=== PATIENT | female | born 1950 | race Caucasian/White ===

== ENCOUNTER 2017-01-29 16:11 | Inpatient (IN) | payer MEDICARE ==
[2017-01-29] MEDS ORDERED: Acetaminophen 325 MG TAB PO PRN (21:24)
[2017-01-29] MEDS ORDERED: Bisacodyl 10 MG SUPP PR PRN (21:25)
[2017-01-29] MEDS ORDERED: HYDROcodone/Acetaminophen 10/325 mg Tablet PO PRN (21:32)
[2017-01-29] MEDS ORDERED: Fleet Enema 133 ML BOT FS PRN (21:35)
[2017-01-29] MEDS ORDERED: tiZANidine HCl 4 MG TAB PO PRN (21:36)
[2017-01-29] MEDS ORDERED: traMADol HCl 50 MG TAB PO PRN (21:38)
[2017-01-29] MEDS ORDERED: Zolpidem Tartrate 5 MG TAB PO PRN (21:39)
[2017-01-29] MEDS: HYDROcodone/Acetaminophen 10/325 mg Tablet PO PRN (23:02)
[2017-01-30] MEDS: Ondansetron ODT 4 MG TAB PO PRN ×2 (02:11→10:52)
[2017-01-30] MEDS: HYDROcodone/Acetaminophen 10/325 mg Tablet PO PRN ×3 (07:57→21:32)
[2017-01-30] MEDS: Mometasone/Formoterol 60 PUFF AER INH SCH (07:58)
[2017-01-30 08:45] VITALS: BMI 26.2
[2017-01-30] MEDS: Ferrous Gluconate 324 MG TAB PO SCH ×2 (08:58→17:15)
[2017-01-30] MEDS: Aspirin 325 mg Enteric Coated Tablet PO SCH ×2 (08:58→21:36)
[2017-01-30] MEDS: Multivitamin W/ Minerals 1 TAB PO SCH (08:58)
[2017-01-30] MEDS: Gabapentin 100 MG CAP PO SCH ×3 (08:59→21:35)
[2017-01-30] MEDS: Lisinopril 5 MG TAB PO SCH (08:59)
[2017-01-30] MEDS: Furosemide 20 MG TAB PO SCH (08:59)
[2017-01-30] MEDS ORDERED: Gabapentin 100 MG CAP PO SCH (09:00)
[2017-01-30] MEDS: Cyclobenzaprine 10 MG TAB PO SCH (09:00)
[2017-01-30] MEDS ORDERED: DULOXETINE 20 MG CAPSULE PO SCH (09:00)
[2017-01-30] MEDS ORDERED: FLU VACC TS2016-17(65YR +) 0.5 ML SYRINGE IM ONE (09:00)
[2017-01-30] MEDS: Nicotine 7 MG PATCH TOP SCH (09:02)
[2017-01-30] MEDS: clonazePAM 0.5 MG TAB PO SCH (21:36)
[2017-01-31] MEDS: HYDROcodone/Acetaminophen 10/325 mg Tablet PO PRN ×5 (02:13→20:39)
[2017-01-31] MEDS: Mometasone/Formoterol 60 PUFF AER INH SCH ×3 (06:26→19:28)
[2017-01-31 06:41] LABS: ALT (SGPT) 45 U/L (0-55); AST (SGOT) 38 U/L (5-34); Alkaline Phosphatase 168 U/L (40-150); Anion Gap 13 mmol/L (10-20); BUN (Urea Nitrogen) 13 mg/dL (9.8-20.1); Bilirubin, Total 0.3 mg/dL (0.2-1.2); Calc. Creatinine Clearance 64 mL/min (70-130); Calcium 8.8 mg/dL (7.8-10.44); Carbon Dioxide 21 mmol/L (23-31); Chloride 112 mmol/L (98-107); Estimated GFR-MDRD 68; Globulin 2.9 g/dL (2.4-3.5)
[2017-01-31 06:46] LABS: #Basophils 0.1 thou/uL (0.0-0.2); #Eosinphils 0.2 thou/uL (0.0-0.7); #Lymphocytes 1.3 thou/uL (1.20-3.40); #Monocytes 0.7 thou/uL (0.11-0.59); %Eosinophils 2.5 % (0.0-10.0); %Monocytes 10.9 % (0.0-10.0); Hematocrit 31.3 % (36.0-47.0); Mean Platelet Volume 7.2 fL (7.4-10.4); White Blood Cell (WBC) Count 6.2 thou/uL (4.8-10.8)
[2017-01-31] MEDS ORDERED: Cyclobenzaprine 10 MG TAB ONE (09:08)
[2017-01-31] MEDS: Ferrous Gluconate 324 MG TAB PO SCH ×2 (09:35→16:34)
[2017-01-31] MEDS: Multivitamin W/ Minerals 1 TAB PO SCH (09:36)
[2017-01-31] MEDS: Aspirin 325 mg Enteric Coated Tablet PO SCH ×2 (09:37→20:39)
[2017-01-31] MEDS: Cyclobenzaprine 10 MG TAB PO SCH (09:38)
[2017-01-31] MEDS: clonazePAM 0.5 MG TAB PO SCH ×2 (09:38→20:38)
[2017-01-31] MEDS: Furosemide 20 MG TAB PO SCH (09:39)
[2017-01-31] MEDS: Gabapentin 100 MG CAP PO SCH ×3 (09:40→20:38)
[2017-01-31] MEDS: Lisinopril 5 MG TAB PO SCH (09:40)
[2017-01-31] MEDS: Nicotine 7 MG PATCH TOP SCH (09:47)
[2017-01-31] MEDS: Ondansetron ODT 4 MG TAB PO PRN (10:48)
[2017-02-01] MEDS: HYDROcodone/Acetaminophen 10/325 mg Tablet PO PRN ×5 (00:38→21:36)
[2017-02-01] MEDS: Mometasone/Formoterol 60 PUFF AER INH SCH ×2 (06:19→18:24)
[2017-02-01] MEDS: Ferrous Gluconate 324 MG TAB PO SCH ×2 (09:43→16:09)
[2017-02-01] MEDS: Multivitamin W/ Minerals 1 TAB PO SCH (09:45)
[2017-02-01] MEDS: clonazePAM 0.5 MG TAB PO SCH ×2 (09:46→20:28)
[2017-02-01] MEDS: Gabapentin 100 MG CAP PO SCH ×3 (09:46→20:28)
[2017-02-01] MEDS: Aspirin 325 mg Enteric Coated Tablet PO SCH ×2 (09:47→20:28)
[2017-02-01] MEDS: Furosemide 20 MG TAB PO SCH (09:47)
[2017-02-01] MEDS: Cyclobenzaprine 10 MG TAB PO SCH (09:47)
[2017-02-01] MEDS: Lisinopril 5 MG TAB PO SCH (09:49)
[2017-02-01] MEDS: Nicotine 7 MG PATCH TOP SCH (09:50)
[2017-02-01] MEDS: Ondansetron ODT 4 MG TAB PO PRN (09:54)
[2017-02-02] MEDS: HYDROcodone/Acetaminophen 10/325 mg Tablet PO PRN ×4 (01:36→22:36)
[2017-02-02] MEDS: Mometasone/Formoterol 60 PUFF AER INH SCH ×2 (06:18→18:36)
[2017-02-02] MEDS: Ferrous Gluconate 324 MG TAB PO SCH ×2 (08:15→17:48)
[2017-02-02] MEDS: Multivitamin W/ Minerals 1 TAB PO SCH (08:15)
[2017-02-02] MEDS: Cyclobenzaprine 10 MG TAB PO SCH (08:17)
[2017-02-02] MEDS: Gabapentin 100 MG CAP PO SCH ×3 (08:17→20:53)
[2017-02-02] MEDS: Furosemide 20 MG TAB PO SCH (08:18)
[2017-02-02] MEDS: clonazePAM 0.5 MG TAB PO SCH ×2 (08:18→20:54)
[2017-02-02] MEDS: Aspirin 325 mg Enteric Coated Tablet PO SCH ×2 (08:18→20:54)
[2017-02-02] MEDS: Lisinopril 5 MG TAB PO SCH (08:19)
[2017-02-02] MEDS: Nicotine 7 MG PATCH TOP SCH (09:13)
[2017-02-03] MEDS: HYDROcodone/Acetaminophen 10/325 mg Tablet PO PRN ×4 (06:10→20:48)
[2017-02-03] MEDS: Mometasone/Formoterol 60 PUFF AER INH SCH ×2 (06:19→20:50)
[2017-02-03] MEDS: Gabapentin 100 MG CAP PO SCH ×3 (08:20→20:48)
[2017-02-03] MEDS: Lisinopril 5 MG TAB PO SCH (08:20)
[2017-02-03] MEDS: Cyclobenzaprine 10 MG TAB PO SCH (08:23)
[2017-02-03] MEDS: Aspirin 325 mg Enteric Coated Tablet PO SCH ×2 (08:23→20:47)
[2017-02-03] MEDS: clonazePAM 0.5 MG TAB PO SCH ×2 (08:23→20:47)
[2017-02-03] MEDS: Ferrous Gluconate 324 MG TAB PO SCH ×2 (08:23→16:41)
[2017-02-03] MEDS: Multivitamin W/ Minerals 1 TAB PO SCH (08:24)
[2017-02-03] MEDS: Furosemide 20 MG TAB PO SCH (08:24)
[2017-02-03] MEDS: Nicotine 7 MG PATCH TOP SCH (08:30)
[2017-02-03] MEDS: Milk Of Magnesia 30 ML UDCUP PO PRN (08:30)
[2017-02-04] MEDS: HYDROcodone/Acetaminophen 10/325 mg Tablet PO PRN ×4 (01:14→21:05)
[2017-02-04] MEDS: Mometasone/Formoterol 60 PUFF AER INH SCH ×2 (05:18→23:49)
[2017-02-04] MEDS: clonazePAM 0.5 MG TAB PO SCH ×2 (09:48→21:05)
[2017-02-04] MEDS: Gabapentin 100 MG CAP PO SCH ×3 (09:49→21:04)
[2017-02-04] MEDS: Multivitamin W/ Minerals 1 TAB PO SCH (09:50)
[2017-02-04] MEDS: Furosemide 20 MG TAB PO SCH (09:50)
[2017-02-04] MEDS: Cyclobenzaprine 10 MG TAB PO SCH (09:50)
[2017-02-04] MEDS: Aspirin 325 mg Enteric Coated Tablet PO SCH ×2 (09:50→21:05)
[2017-02-04] MEDS: Ferrous Gluconate 324 MG TAB PO SCH ×2 (09:50→17:11)
[2017-02-04] MEDS: Lisinopril 5 MG TAB PO SCH (09:51)
[2017-02-04] MEDS: Nicotine 7 MG PATCH TOP SCH (10:12)
[2017-02-04] MEDS: Ondansetron ODT 4 MG TAB PO PRN (10:17)
[2017-02-04] MEDS: Milk Of Magnesia 30 ML UDCUP PO PRN (14:11)
[2017-02-05] MEDS: HYDROcodone/Acetaminophen 10/325 mg Tablet PO PRN ×3 (01:37→15:35)
[2017-02-05] MEDS: Mometasone/Formoterol 60 PUFF AER INH SCH ×2 (06:28→18:46)
[2017-02-05] MEDS: Gabapentin 100 MG CAP PO SCH ×3 (08:27→21:28)
[2017-02-05] MEDS: Multivitamin W/ Minerals 1 TAB PO SCH (08:27)
[2017-02-05] MEDS: Aspirin 325 mg Enteric Coated Tablet PO SCH ×2 (08:27→21:28)
[2017-02-05] MEDS: Lisinopril 5 MG TAB PO SCH (08:28)
[2017-02-05] MEDS: Ferrous Gluconate 324 MG TAB PO SCH ×2 (08:28→17:39)
[2017-02-05] MEDS: Nicotine 7 MG PATCH TOP SCH (08:38)
[2017-02-05] MEDS: clonazePAM 0.5 MG TAB PO SCH ×2 (12:48→21:28)
[2017-02-05] MEDS: Furosemide 20 MG TAB PO SCH (12:50)
[2017-02-05] MEDS: Cyclobenzaprine 10 MG TAB PO SCH (12:54)
[2017-02-05] MEDS: Ondansetron ODT 4 MG TAB PO PRN (17:10)
[2017-02-06] MEDS: Mometasone/Formoterol 60 PUFF AER INH SCH (06:08)
[2017-02-06] MEDS: HYDROcodone/Acetaminophen 10/325 mg Tablet PO PRN (06:15)
[2017-02-06 06:24] VITALS: BP 124/65; TEMP 98.3
[2017-02-06] MEDS: Ferrous Gluconate 324 MG TAB PO SCH (09:05)
[2017-02-06] MEDS: Gabapentin 100 MG CAP PO SCH (09:06)
[2017-02-06] MEDS: Aspirin 325 mg Enteric Coated Tablet PO SCH (09:07)
[2017-02-06] MEDS: Multivitamin W/ Minerals 1 TAB PO SCH (09:07)
[2017-02-06] MEDS: Furosemide 20 MG TAB PO SCH (09:08)
[2017-02-06] MEDS: clonazePAM 0.5 MG TAB PO SCH (09:08)
[2017-02-06] MEDS: Cyclobenzaprine 10 MG TAB PO SCH (09:08)
[2017-02-06] MEDS: Lisinopril 5 MG TAB PO SCH (09:10)
[2017-02-06] MEDS: Nicotine 7 MG PATCH TOP SCH (09:17)
--- NOTE | 2017-02-06 19:10 | DIS ---
DATE OF ADMISSION: 01/29/2017 DATE OF DISCHARGE: 02/06/2017. ADMISSION DIAGNOSES: Left femoral neck fracture status post total arthroplasty , history of falls, hypokalemia and elevated transaminases. SECONDARY DIAGNOSES: Hypertension, hyperlipidemia, and chronic obstructive pulmonary disease. PROCEDURES: None. HOSPITAL COURSE: This is a 67-year-old female who was transitioned from [facility] to our facility for PT, OT, and status post sustained fall at home with resultant left femoral neck fracture; patient underwent a total arthroplasty via Dr. Lauren successfully. Prior to her transition here she notably had hypokalemia and elevated liver function tests. Upon reevaluation here, hypokalemia was corrected. Liver function tests normalized. During her stay, she was able to participate with PT and OT with no notable setbacks. She did request to have a walker and tub transfer bench for use at home. The patient normally resides at home alone, but does have her son who checks on her often. She has had a prior back surgery and received home health therapy through [facility]; she has elected to proceed with same entity at this time. She was evaluated for followup with Dr. Lauren yesterday and she has been cleared. Patient had no new issues during her stay here and continually progressed and is now stable to return to her home. DISPOSITION: The patient will return home and participiate with continuous PT and OT via [facility]. She may follow up with myself next week in clinic. DISCHARGE MEDICATIONS: Amlodipine 10 mg p.o. daily, Symbicort 2 puffs b.i.d., Flexeril 10 mg p.o. daily, Nexium 40 mg p.o. daily, Lasix 20 mg p.o. daily, gabapentin 200 mg p.o. t.i.d., Cymbalta 40 mg p.o. daily, ferrous gluconate 324 mg p.o. b.i.d., DuoNeb q.6 hours p.r.n., lisinopril 5 mg p.o. daily and advised to continue nicotine patch, Crestor 10 mg p.o. daily, tizanidine 4 mg p.o. at bedtime p.r.n., tramadol 100 mg p.o. q.6 hours p.r.n. MTDD
== END 2017-02-06 10:25 | disposition home health service (06) | DRG 561 ==
LOC: BURMED 18:05
PROVIDERS: ADMIT Family Medicine; ATTEND Family Medicine
DX: S72.002D Fracture of unspecified part of neck of left femur, subsequent encounter for closed fracture with routine healing (principal); J44.9 Chronic obstructive pulmonary disease, unspecified; I10 Essential (primary) hypertension; W19.XXXD Unspecified fall, subsequent encounter; Z47.1 Aftercare following joint replacement surgery; Z96.642 Presence of left artificial hip joint; E78.5 Hyperlipidemia, unspecified; E87.6 Hypokalemia; R74.0 Nonspecific elevation of levels of transaminase and lactic acid dehydrogenase [LDH]
CPT/HCPCS: 36415; 80053; 85025; 94640; 94664; G8978-GP-CJ; G8979-GP-CI; G8987-GO-CK; G8988-GO-CI; J7620; Q0162

== ENCOUNTER 2017-05-19 08:35 | Outpatient (CLI) | payer MEDICARE ==
[2017-05-19 10:50] LABS: #Basophils 0.1 thou/uL (0.0-0.2); #Eosinphils 0.2 thou/uL (0.0-0.7); #Lymphocytes 2.4 thou/uL (1.20-3.40); #Monocytes 0.7 thou/uL (0.11-0.59); #Neutrophils 5.8 thou/uL (1.40-6.50); %Basophils 0.8 % (0.0-1.0); %Eosinophils 1.7 % (0.0-10.0); %Lymphocytes 26.1 % (21.0-51.0); %Monocytes 8.1 % (0.0-10.0); %Neutrophils 63.4 % (42.0-75.0); Hemoglobin 12.7 g/dL (12.0-16.0); Mean Corpuscular HGB CONC 32.3 g/dL (32.0-36.0); Mean Corpuscular Hemoglobin 27.7 pg (27.0-31.0); Mean Corpuscular Volume 85.9 fl (81.0-99.0); Mean Platelet Volume 9.1 fL (7.4-10.4); Platelet Count 236 thou/uL (130-400); White Blood Cell (WBC) Count 9.1 thou/uL (4.8-10.8)
[2017-05-19 11:02] LABS: ALT (SGPT) 69 U/L (8-55); AST (SGOT) 22 U/L (5-34); Albumin 4.2 g/dL (3.4-4.8); Alkaline Phosphatase 197 U/L (40-150); Anion Gap 15 mmol/L (10-20); BUN (Urea Nitrogen) 13 mg/dL (9.8-20.1); Bilirubin, Total 0.2 mg/dL (0.2-1.2); Calc. Creatinine Clearance 0 mL/min (70-130); Calcium 9.5 mg/dL (7.8-10.44); Cardiac Risk 3.8 (Less than 4.5); Chloride 115 mmol/L (98-107); Cholesterol 154 mg/dl (< 200 Desired); Estimated GFR-MDRD 71; Globulin 2.7 g/dL (2.4-3.5); Glucose 116 mg/dL (80-115); HDL Cholesterol 41 mg/dL (>60 Neg Risk); LDL Cholesterol, Calculated 83 mg/dL; Lipase 59 U/L (8-78); Potassium 4.1 mmol/L (3.5-5.1); Protein, Total 6.9 g/dL (6.0-8.3); Sodium 143 mmol/L (136-145); Triglycerides 148 mg/dL (Less than 150)
[2017-05-19 11:24] LABS: Carbon Dioxide 17 mmol/L (23-31)
== END 2017-05-19 08:36 | disposition home or self-care (01) ==
LOC: HPCALD 08:35
PROVIDERS: ATTEND Family Medicine
DX: E78.4 Other hyperlipidemia (principal); K52.9 Noninfective gastroenteritis and colitis, unspecified; I10 Essential (primary) hypertension
CPT/HCPCS: 36415; 80053; 80061; 83690; 85025

== ENCOUNTER 2017-05-20 15:22 | Outpatient (CLI) | payer MEDICARE | END 2017-05-20 15:23 | disposition home or self-care (01) | LOC: HPCALD 15:22 | PROVIDERS: ATTEND Family Medicine | DX: R30.0 Dysuria (principal) | CPT/HCPCS: 87086 ==

== ENCOUNTER 2017-07-04 14:48 | Outpatient (CLI) | payer MEDICARE | END 2017-07-04 14:49 | disposition home or self-care (01) | LOC: HPCALD 14:48 | PROVIDERS: ATTEND Family Medicine | DX: M79.605 Pain in left leg (principal) | CPT/HCPCS: 36415; 85379 ==

== ENCOUNTER 2017-08-06 22:01 | Emergency (ER) | payer MEDICARE ==
[2017-08-06 22:44] LABS: #Eosinphils 0.1 thou/uL (0.0-0.7); #Lymphocytes 1.9 thou/uL (1.20-3.40); #Monocytes 0.6 thou/uL (0.11-0.59); #Neutrophils 3.7 thou/uL (1.40-6.50); %Basophils 0.7 % (0.0-1.0); %Eosinophils 1.4 % (0.0-10.0); %Lymphocytes 29.6 % (21.0-51.0); %Monocytes 9.3 % (0.0-10.0); Hemoglobin 11.8 g/dL (12.0-16.0); Mean Corpuscular HGB CONC 32.9 g/dL (32.0-36.0); Mean Corpuscular Hemoglobin 30.1 pg (27.0-31.0); Mean Corpuscular Volume 91.4 fl (81.0-99.0); Mean Platelet Volume 8.8 fL (7.4-10.4); Platelet Count 144 thou/uL (130-400); Red Blood Cell (RBC) Count 3.93 mill/uL (4.20-5.40); White Blood Cell (WBC) Count 6.3 thou/uL (4.8-10.8)
[2017-08-06 22:55] LABS: Anion Gap 14 mmol/L (10-20); BUN (Urea Nitrogen) 9 mg/dL (9.8-20.1); Calc. Creatinine Clearance 0 mL/min (70-130); Calcium 8.7 mg/dL (7.8-10.44); Carbon Dioxide 22 mmol/L (23-31); Chloride 105 mmol/L (98-107); Estimated GFR-MDRD 67; Glucose 108 mg/dL (80-115); Sodium 137 mmol/L (136-145)
--- NOTE | 2017-08-06 23:08 | RAD ---
LEFT HIP TWO VIEWS 08/06/17 A hip arthroplasty is in place. There is no sign of loosening or infection. No fracture was seen. Al ignment of the prosthesis seems normal. IMPRESSION: No acute findings. POS: HOME
[2017-08-06] MEDS ORDERED: HYDROcodone/Acetaminophen 10/325 mg Tablet ONE (23:13)
[2017-08-06] MEDS ORDERED: Enoxaparin Sodium 100 MG/ML SYRINGE ONE (23:13)
== END 2017-08-06 23:53 | disposition short-term general hospital (02) ==
LOC: BURERS 22:01
DX: M79.605 Pain in left leg (principal); R79.1 Abnormal coagulation profile; R60.0 Localized edema; I10 Essential (primary) hypertension; J44.9 Chronic obstructive pulmonary disease, unspecified; E78.5 Hyperlipidemia, unspecified; E03.9 Hypothyroidism, unspecified; K21.9 Gastro-esophageal reflux disease without esophagitis; F41.9 Anxiety disorder, unspecified; F32.9 Major depressive disorder, single episode, unspecified; F17.210 Nicotine dependence, cigarettes, uncomplicated; Z79.891 Long term (current) use of opiate analgesic; Z79.899 Other long term (current) drug therapy
CPT/HCPCS: 36415; 80048; 85025; 85379; 96372; J1650

== ENCOUNTER 2018-01-16 14:22 | Outpatient (CLI) | payer MEDICARE ==
--- NOTE | 2018-01-16 17:13 | RAD ---
LEFT LEG TWO VIEWS 01/16/18 No fracture was seen. There is no acute periosteal reaction. An old ORIF of the distal fibula and med ial malleolus is noted. IMPRESSION: No acute findings. POS: HOME
== END 2018-01-16 14:23 | disposition home or self-care (01) ==
LOC: BURRAD 14:22
PROVIDERS: ATTEND Family Medicine
DX: M79.605 Pain in left leg (principal)

== ENCOUNTER 2018-05-25 13:42 | Emergency (ER) | payer MEDICARE ==
[2018-05-25 14:32] LABS: #Basophils 0.1 thou/uL (0.0-0.2); #Eosinphils 0.1 thou/uL (0.0-0.7); #Lymphocytes 1.8 thou/uL (1.20-3.40); #Monocytes 0.7 thou/uL (0.11-0.59); #Neutrophils 4.5 thou/uL (1.40-6.50); %Basophils 0.7 % (0.0-1.0); %Eosinophils 1.5 % (0.0-10.0); %Lymphocytes 25.5 % (21.0-51.0); %Monocytes 10.1 % (0.0-10.0); %Neutrophils 62.2 % (42.0-75.0); Hemoglobin 11.2 g/dL (12.0-16.0); Mean Corpuscular HGB CONC 32.9 g/dL (32.0-36.0); Mean Corpuscular Hemoglobin 28.2 pg (27.0-31.0); Mean Corpuscular Volume 85.7 fL (78.0-98.0); Mean Platelet Volume 7.1 fL (7.4-10.4); Platelet Count 222 thou/uL (130-400); RBC Distribution Width 13.6 % (11.5-14.5); Red Blood Cell (RBC) Count 3.95 mill/uL (4.20-5.40); White Blood Cell (WBC) Count 7.2 thou/uL (4.8-10.8)
[2018-05-25 14:44] LABS: Bilirubin Negative (Negative); Blood, Urine Moderate (Negative); Clarity Clear (Clear); Glucose, Urine (Dipstick) Negative (Negative); Leukocyte Negative (Negative); Nitrite Negative (Negative); Protein, Urine (Dipstick) Negative (Neg-Trace); Urobilinogen 0.2 mg/dL (0.2-1.0)
[2018-05-25 14:47] LABS: ALT (SGPT) 44 U/L (8-55); AST (SGOT) 44 U/L (5-34); Albumin 3.5 g/dL (3.4-4.8); Alkaline Phosphatase 215 U/L (40-150); Anion Gap 14 mmol/L (10-20); BUN (Urea Nitrogen) 25 mg/dL (9.8-20.1); Bilirubin, Total 0.2 mg/dL (0.2-1.2); CK (CPK) 146 U/L (29-168); Calc. Creatinine Clearance 0 mL/min (70-130); Carbon Dioxide 23 mmol/L (23-31); Chloride 107 mmol/L (98-107); Estimated GFR-MDRD 64; Globulin 2.6 g/dL (2.4-3.5); Glucose 96 mg/dL (80-115); Potassium 4.2 mmol/L (3.5-5.1); Protein, Total 6.1 g/dL (6.0-8.3); Sodium 140 mmol/L (136-145)
[2018-05-25 14:48] LABS: Bacteria/HPF Rare-Few HPF (None Seen); Squamous Epithelial 0-3 HPF (0-3); WBC/HPF 0-3 HPF (0-3)
[2018-05-25 14:50] LABS: CKMB 5.1 ng/mL (0-6.6); Troponin I Less than 0.010 ng/mL (< 0.028)
[2018-05-25] MEDS ORDERED: Ketorolac Tromethamine 30 MG/ML VIAL ONE (14:56)
== END 2018-05-25 15:56 | disposition home or self-care (01) ==
LOC: BURERS 13:42
DX: R60.0 Localized edema (principal); G43.909 Migraine, unspecified, not intractable, without status migrainosus; J44.9 Chronic obstructive pulmonary disease, unspecified; E78.5 Hyperlipidemia, unspecified; I10 Essential (primary) hypertension; E03.9 Hypothyroidism, unspecified; K21.9 Gastro-esophageal reflux disease without esophagitis; F41.9 Anxiety disorder, unspecified; F32.9 Major depressive disorder, single episode, unspecified; F17.210 Nicotine dependence, cigarettes, uncomplicated; Z79.899 Other long term (current) drug therapy
CPT/HCPCS: 80053; 81003; 81015; 82553; 84484; 85025; 93005; 96374; J1885

== ENCOUNTER 2018-08-23 13:01 | Inpatient (IN) | payer MEDICARE ==
[2018-08-23 16:33] VITALS: BMI 24.0
[2018-08-23] MEDS ORDERED: Benzonatate 100 MG CAP PO PRN (16:43)
[2018-08-23] MEDS: Acetaminophen/Codeine 30-300mg Tablet PO PRN (17:34)
[2018-08-23] MEDS: Mometasone/Formoterol 60 PUFF AER INH SCH (18:30)
--- NOTE | 2018-08-23 21:40 | HP ---
REASON FOR SWING BED ADMISSION: Diffuse weakness, debilitation. BRIEF SUMMARY OF HISTORY AND PHYSICAL: The patient is a 68-year-old white female, who had a ST-eleva tion NE and was admitted to [facility]. She underwent a cardiac catheterizati on with stent placement in the right RCA with a bare metal stent and was placed on Plavix. The patie nt during her hospital stay did have some elevated fevers, which was found to be consistent with UTI with E. coli in her urine. She did have 1 out of 2 blood cultures with coag negative Staph, which wa s thought to be a contaminant. The patient was extremely weak and debilitated. She has chronic pain as well as degenerative joint disease of the cervical and lumbar spine and chronic abdominal pain wi th nausea and elevated liver enzymes, which was evaluated in the hospital by Dr. Davon Gilbert and ob servation was recommended. The patient also has a history of chronic narcotic use and benzodiazepine use. Due to her debilitation and weakness, it was deemed appropriate to transfer her to [facility] for continued rehabilitation with physical therapy and occupational therapy. PAST MEDICAL HISTORY: 1. COPD. 2. Chronic back pain. 3. Chronic renal disease. 4. Hypothyroidism. 5. Hyperlipidemia. 6. Coronary artery disease, status post NE as above. 7. History of peptic ulcer disease. PAST SURGICAL HISTORY: Including appendectomy, cholecystectomy, hysterectomy, hip surgery, and multi ple back surgeries. SOCIAL HISTORY: The patient is fairly independent in activities of daily living, slightly decreased activity due to her chronic back pain. She was smokes a pack and half of cigarettes per day for mult iple years. Denies alcohol, social drug use. Does have a history of narcotic dependency due to her chronic back pain. ALLERGIES: Include MORPHINE, HYDROMORPHONE, and CLONIDINE. CURRENT MEDICATIONS: Tylenol with Codeine No. 4, Nexium 40 mg daily, Celebrex, iron supplements, mul tivitamins, sertraline, amlodipine, cyclobenzaprine, clonazepam, lisinopril, gabapentin, furosemide, Crestor, and potassium supplement. REVIEW OF SYSTEMS: Patient reports generalized weakness. She has chronic nausea and abdominal pain which is at its baseline. She does report increased appetite. No recent nausea, no vomiting above h er baseline. The patient has chronic depression, which appears to be stable with mild anxiety. She has chronic back pain as well which appears to be stable. Patient denies any chest pain. She does h ave diffuse weakness though with any activity, requiring assistance with transfers. The patient has no melena, no hematochezia. She does not report any dysuria or hematuria at this time. No urinary f requency and no lower extremity edema. PHYSICAL EXAMINATION: GENERAL: Elderly white female, alert and oriented x3. VITAL SIGNS: Blood pressure was 114/88, respiratory rate was 16, pulse 82. HEENT: Atraumatic, normocephalic. Extraocular movements are intact. NECK: Supple, no masses palpated. CHEST: Had diffuse rhonchi bilaterally. HEART: Regular rate and rhythm. ABDOMEN: Soft. Bowel sounds positive in all 4 quadrants. No masses palpated. EXTREMITIES: No cyanosis, clubbing or edema. ASSESSMENT AND PLAN: 1. Status post ST-elevation myocardial infarction. Patient was status post PCI catheterization with stent placement in the right RCA. She will be on Plavix. She is high risk for bleeding. She will undergo rehabilitation. 2. Generalized weakness. We will start physical therapy, occupational, and physical therapy as well as patient tolerated. 3. History of peptic ulcer disease with chronic nausea and elevated liver enzymes. The patient was switched from Nexium to Protonix due to now being on her Plavix. 4. Chronic back pain. CURRENT MEDICATIONS: As tolerated. DEPRESSION: Stable. DISPOSITION: The patient will likely be discharged to home once she is able to ambulate on her own. The patient is a DNR. SCDs will be ordered on the patient for deep venous thrombosis prophylaxis,
[2018-08-23] MEDS: hydrOXYzine 10 MG TAB PO SCH (22:18)
[2018-08-23] MEDS: Cyclobenzaprine 10 MG TAB PO SCH (22:18)
[2018-08-23] MEDS: Gabapentin 100 MG CAP PO SCH (22:19)
[2018-08-23] MEDS: clonazePAM 1 MG TAB PO SCH (22:19)
[2018-08-23] MEDS: Ferrous Gluconate 324 MG TAB PO SCH (22:19)
[2018-08-24] MEDS: Acetaminophen 325 MG TAB PO PRN (05:54)
[2018-08-24] MEDS: Mometasone/Formoterol 60 PUFF AER INH SCH ×2 (06:45→18:35)
[2018-08-24] MEDS: Amlodipine 10 MG TAB PO SCH (09:31)
[2018-08-24] MEDS: Clopidogrel Bisulfate 75 MG TAB PO SCH (09:31)
[2018-08-24] MEDS: Cyclobenzaprine 10 MG TAB PO SCH ×3 (09:31→20:36)
[2018-08-24] MEDS: clonazePAM 1 MG TAB PO SCH ×3 (09:31→20:36)
[2018-08-24] MEDS: predniSONE 20 MG TAB PO SCH (09:31)
[2018-08-24] MEDS: Furosemide 20 MG TAB PO SCH (09:32)
[2018-08-24] MEDS: Gabapentin 100 MG CAP PO SCH ×3 (09:32→20:36)
[2018-08-24] MEDS: Nicotine 21 MG PATCH TD SCH (09:32)
[2018-08-24] MEDS: Ferrous Gluconate 324 MG TAB PO SCH ×2 (09:32→20:37)
[2018-08-24] MEDS: Lisinopril 5 MG TAB PO SCH (09:32)
[2018-08-24] MEDS: Multivitamin W/ Minerals 1 TAB PO SCH (09:32)
[2018-08-24] MEDS: hydrOXYzine 10 MG TAB PO SCH ×3 (09:32→20:37)
[2018-08-24] MEDS: Rosuvastatin 10 MG TAB PO SCH (09:33)
[2018-08-24] MEDS: Potassium Chloride 10 MEQ TAB PO SCH (09:33)
[2018-08-24] MEDS: Fluticasone Propionate Nasal Spray 16 gm Bottle NASAL SCH (15:51)
[2018-08-24] MEDS ORDERED: Fluticasone Propionate Nasal Spray 16 gm Bottle NASAL PRN (16:24)
[2018-08-24] MEDS: Acetaminophen/Codeine 30-300mg Tablet PO PRN (19:08)
[2018-08-25 04:43] LABS: #Basophils 0.1 thou/uL (0.0-0.2); #Eosinphils 0.1 thou/uL (0.0-0.7); #Lymphocytes 1.8 thou/uL (1.20-3.40); #Monocytes 0.9 thou/uL (0.11-0.59); #Neutrophils 7.5 thou/uL (1.40-6.50); %Basophils 0.7 % (0.0-1.0); %Eosinophils 0.5 % (0.0-10.0); %Lymphocytes 17.2 % (21.0-51.0); %Monocytes 8.8 % (0.0-10.0); %Neutrophils 72.8 % (42.0-75.0); Hemoglobin 9.5 g/dL (12.0-16.0); Mean Corpuscular HGB CONC 31.4 g/dL (32.0-36.0); Mean Corpuscular Hemoglobin 28.8 pg (27.0-31.0); Mean Corpuscular Volume 91.6 fL (78.0-98.0); Mean Platelet Volume 7.9 fL (7.4-10.4); Platelet Count 319 thou/uL (130-400); Red Blood Cell (RBC) Count 3.31 mill/uL (4.20-5.40); White Blood Cell (WBC) Count 10.3 thou/uL (4.8-10.8)
[2018-08-25 04:52] LABS: ALT (SGPT) 142 U/L (8-55); AST (SGOT) 63 U/L (5-34); Alkaline Phosphatase 264 U/L (40-150); Anion Gap 12 mmol/L (10-20); BUN (Urea Nitrogen) 14 mg/dL (9.8-20.1); Bilirubin, Total Less than 0.2 mg/dL (0.2-1.2); Calc. Creatinine Clearance 78 mL/min (70-130); Calcium 8.5 mg/dL (7.8-10.44); Carbon Dioxide 19 mmol/L (23-31); Chloride 111 mmol/L (98-107); Estimated GFR-MDRD Greater than 90; Globulin 2.8 g/dL (2.4-3.5); Glucose 118 mg/dL (80-115); Potassium 3.4 mmol/L (3.5-5.1); Protein, Total 5.8 g/dL (6.0-8.3); Sodium 139 mmol/L (136-145)
[2018-08-25] MEDS: Mometasone/Formoterol 60 PUFF AER INH SCH ×2 (06:29→18:08)
[2018-08-25] MEDS: Acetaminophen/Codeine 30-300mg Tablet PO PRN ×2 (06:31→18:07)
[2018-08-25] MEDS: Nicotine 21 MG PATCH TD SCH (09:47)
[2018-08-25] MEDS: Lisinopril 5 MG TAB PO SCH (09:48)
[2018-08-25] MEDS: Gabapentin 100 MG CAP PO SCH ×3 (09:52→21:40)
[2018-08-25] MEDS: Furosemide 20 MG TAB PO SCH (09:52)
[2018-08-25] MEDS: Clopidogrel Bisulfate 75 MG TAB PO SCH (09:52)
[2018-08-25] MEDS: Amlodipine 10 MG TAB PO SCH (09:52)
[2018-08-25] MEDS: Multivitamin W/ Minerals 1 TAB PO SCH (09:52)
[2018-08-25] MEDS: Potassium Chloride 10 MEQ TAB PO SCH ×2 (09:53→10:11)
[2018-08-25] MEDS: hydrOXYzine 10 MG TAB PO SCH ×3 (09:53→21:41)
[2018-08-25] MEDS: Rosuvastatin 10 MG TAB PO SCH (09:54)
[2018-08-25] MEDS: Fluticasone Propionate Nasal Spray 16 gm Bottle NASAL SCH (09:54)
[2018-08-25] MEDS: Cyclobenzaprine 10 MG TAB PO SCH ×3 (09:54→21:41)
[2018-08-25] MEDS: Ferrous Gluconate 324 MG TAB PO SCH ×2 (09:54→21:41)
[2018-08-25] MEDS: predniSONE 20 MG TAB PO SCH (09:54)
[2018-08-25] MEDS: clonazePAM 1 MG TAB PO SCH ×3 (09:57→21:41)
[2018-08-25] MEDS: Ondansetron ODT 4 MG TAB PO PRN (21:40)
[2018-08-26] MEDS: Fluticasone Propionate Nasal Spray 16 gm Bottle NASAL SCH (09:35)
[2018-08-26] MEDS: Acetaminophen/Codeine 30-300mg Tablet PO PRN ×2 (09:35→16:41)
[2018-08-26] MEDS: Gabapentin 100 MG CAP PO SCH ×3 (09:37→20:43)
[2018-08-26] MEDS: Lisinopril 5 MG TAB PO SCH (09:37)
[2018-08-26] MEDS: predniSONE 20 MG TAB PO SCH (09:37)
[2018-08-26] MEDS: Clopidogrel Bisulfate 75 MG TAB PO SCH (09:37)
[2018-08-26] MEDS: Ferrous Gluconate 324 MG TAB PO SCH ×2 (09:37→20:43)
[2018-08-26] MEDS: Rosuvastatin 10 MG TAB PO SCH (09:37)
[2018-08-26] MEDS: hydrOXYzine 10 MG TAB PO SCH ×3 (09:38→20:43)
[2018-08-26] MEDS: Cyclobenzaprine 10 MG TAB PO SCH ×3 (09:38→20:43)
[2018-08-26] MEDS: Amlodipine 10 MG TAB PO SCH (09:40)
[2018-08-26] MEDS: Potassium Chloride 10 MEQ TAB PO SCH (09:40)
[2018-08-26] MEDS: clonazePAM 1 MG TAB PO SCH ×3 (09:40→20:43)
[2018-08-26] MEDS: Furosemide 20 MG TAB PO SCH (09:41)
[2018-08-26] MEDS: Multivitamin W/ Minerals 1 TAB PO SCH (09:41)
[2018-08-26] MEDS: Mometasone/Formoterol 60 PUFF AER INH SCH ×2 (09:57→18:35)
[2018-08-26] MEDS: Nicotine 21 MG PATCH TD SCH (09:59)
[2018-08-26] MEDS: Ondansetron ODT 4 MG TAB PO PRN (18:46)
[2018-08-26] MEDS: Acetaminophen 325 MG TAB PO PRN (20:42)
[2018-08-27] MEDS: Mometasone/Formoterol 60 PUFF AER INH SCH ×2 (06:28→18:31)
[2018-08-27] MEDS: Acetaminophen/Codeine 30-300mg Tablet PO PRN (06:29)
[2018-08-27] MEDS: Fluticasone Propionate Nasal Spray 16 gm Bottle NASAL SCH (09:15)
[2018-08-27] MEDS: Nicotine 21 MG PATCH TD SCH (09:16)
[2018-08-27] MEDS: Potassium Chloride 10 MEQ TAB PO SCH (09:18)
[2018-08-27] MEDS: clonazePAM 1 MG TAB PO SCH ×3 (09:20→21:19)
[2018-08-27] MEDS: Lisinopril 5 MG TAB PO SCH (09:20)
[2018-08-27] MEDS: Multivitamin W/ Minerals 1 TAB PO SCH (09:20)
[2018-08-27] MEDS: Amlodipine 10 MG TAB PO SCH (09:20)
[2018-08-27] MEDS: Clopidogrel Bisulfate 75 MG TAB PO SCH (09:20)
[2018-08-27] MEDS: predniSONE 20 MG TAB PO SCH (09:21)
[2018-08-27] MEDS: Rosuvastatin 10 MG TAB PO SCH (09:21)
[2018-08-27] MEDS: Gabapentin 100 MG CAP PO SCH ×3 (09:21→21:19)
[2018-08-27] MEDS: hydrOXYzine 10 MG TAB PO SCH ×3 (09:21→21:20)
[2018-08-27] MEDS: Furosemide 20 MG TAB PO SCH (09:22)
[2018-08-27] MEDS: Ferrous Gluconate 324 MG TAB PO SCH ×2 (09:22→21:19)
[2018-08-27] MEDS: Cyclobenzaprine 10 MG TAB PO SCH ×3 (09:22→21:19)
[2018-08-27] MEDS: Acetaminophen 325 MG TAB PO PRN (09:29)
[2018-08-27] MEDS: traMADol HCl 50 MG TAB PO PRN (16:27)
[2018-08-28] MEDS: Acetaminophen 325 MG TAB PO PRN (04:53)
[2018-08-28] MEDS: Mometasone/Formoterol 60 PUFF AER INH SCH (05:02)
[2018-08-28 06:36] VITALS: BP 127/59; TEMP 98.7
[2018-08-28] MEDS: Nicotine 21 MG PATCH TD SCH (08:59)
[2018-08-28] MEDS: Fluticasone Propionate Nasal Spray 16 gm Bottle NASAL SCH (09:02)
[2018-08-28] MEDS: predniSONE 20 MG TAB PO SCH (09:03)
[2018-08-28] MEDS: clonazePAM 1 MG TAB PO SCH ×2 (09:03→15:31)
[2018-08-28] MEDS: Rosuvastatin 10 MG TAB PO SCH (09:04)
[2018-08-28] MEDS: Ferrous Gluconate 324 MG TAB PO SCH (09:04)
[2018-08-28] MEDS: Multivitamin W/ Minerals 1 TAB PO SCH (09:04)
[2018-08-28] MEDS: Cyclobenzaprine 10 MG TAB PO SCH ×2 (09:04→15:31)
[2018-08-28] MEDS: Furosemide 20 MG TAB PO SCH (09:04)
[2018-08-28] MEDS: Potassium Chloride 10 MEQ TAB PO SCH (09:04)
[2018-08-28] MEDS: Gabapentin 100 MG CAP PO SCH ×2 (09:05→15:31)
[2018-08-28] MEDS: hydrOXYzine 10 MG TAB PO SCH ×2 (09:05→15:31)
[2018-08-28] MEDS: Amlodipine 10 MG TAB PO SCH (09:05)
[2018-08-28] MEDS: Clopidogrel Bisulfate 75 MG TAB PO SCH (09:05)
[2018-08-28] MEDS: Lisinopril 5 MG TAB PO SCH (09:05)
[2018-08-28] MEDS: traMADol HCl 50 MG TAB PO PRN (09:18)
[2018-08-28] MEDS: Ondansetron ODT 4 MG TAB PO PRN ×2 (09:20→15:32)
--- NOTE | 2018-08-28 14:44 | DIS ---
DATE OF ADMISSION: 08/24/2018 DATE OF DISCHARGE: 08/28/2018 DISCHARGE DIAGNOSES: Status post ST-elevated myocardial infarction with stent placement, physical deconditioning, history of peptic ulcer disease, chronic back pain, hypertension, anxiety, and urinary tract infection. PROCEDURES: None. HOSPITAL COURSE: This is a 68-year-old female, who was initially admitted and treated at [facility] in [place] for an ST-elevated myocardial infarction. She underwent cardiac catheterization and stent placement to the right RCA with bare metal stents, and was subsequently started on Plavix. During her admission there, she was treated for urinary tract infection. She transitioned to our facility secondary to physical deconditioning, partially related to her history of chronic pain and degenerative joint disease involving the cervical and lumbar spines. While here , she did complete her course of antibiotics, Levaquin, for the urinary tract infection. She was able to work with physical therapy and occupational therapy in regards to physical deconditioning. Initially, she was hypoxic with activities; the patient does have underlying COPD in relation to chronic smoking ; however, is not typically oxygen dependent. As she progressed, she was able to participate with physical activities without desaturations. At this point, she has satisfactorily met the goal set forth by physical therapy and occupational therapy for her to be able to discharge to her home setting. Her daughter, who typically lives out of state, will currently stay with her to help this transition. In addition of this, she has been set up with [facility] for further therapy. DISPOSITION: The patient will be discharged to home setting where her daughter will stay with her and she will continue physical therapy with [facility]. She may follow up with myself in the clinic in 1 week. DISCHARGE MEDICATIONS: Include Tylenol with Codeine #6 q.6 hours p.r.n., amlodipine 10 mg p.o. daily, aspirin 81 mg p.o. daily, clonazepam 1 mg p.o. t.i.d., Plavix 75 mg p.o. daily, cyclobenzaprine 10 mg p.o. t.i.d., diltiazem 120 mg p.o. daily, ferrous gluconate 324 mg p.o. b.i.d., Flonase 1 spray each nostril daily, Lasix 20 mg p.o. daily, gabapentin 100 mg p.o. t.i.d., hydroxyzine 10 mg p.o. t.i.d., lisinopril 5 mg p.o. daily, potassium chloride 20 mEq p.o. daily, rosuvastatin 10 mg p.o. at bedtime, Zoloft 50 mg p.o. daily, tramadol 300 mg extended release p.o. daily, and Symbicort 160/4.5 two puffs b.i.d. MTDD
== END 2018-08-28 16:05 | disposition home health service (06) | DRG 948 ==
LOC: BURMED 15:45
PROVIDERS: ADMIT Family Medicine; ATTEND Family Medicine
DX: R53.1 Weakness (principal); N39.0 Urinary tract infection, site not specified; F11.20 Opioid dependence, uncomplicated; R53.81 Other malaise; I25.2 Old myocardial infarction; Z95.5 Presence of coronary angioplasty implant and graft; J44.9 Chronic obstructive pulmonary disease, unspecified; G89.29 Other chronic pain; M54.9 Dorsalgia, unspecified; M47.892 Other spondylosis, cervical region; M47.896 Other spondylosis, lumbar region; R10.9 Unspecified abdominal pain; I12.9 Hypertensive chronic kidney disease with stage 1 through stage 4 chronic kidney disease, or unspecified chronic kidney disease; N18.9 Chronic kidney disease, unspecified; E03.9 Hypothyroidism, unspecified; E78.5 Hyperlipidemia, unspecified; I25.10 Atherosclerotic heart disease of native coronary artery without angina pectoris; K27.9 Peptic ulcer, site unspecified, unspecified as acute or chronic, without hemorrhage or perforation; Z66 Do not resuscitate; F32.9 Major depressive disorder, single episode, unspecified; F41.9 Anxiety disorder, unspecified; R09.02 Hypoxemia; F17.200 Nicotine dependence, unspecified, uncomplicated
CPT/HCPCS: 36415; 80053; 85025; 94664; G8978-GP-CK; G8979-GP-CI; J7506; Q0162

== ENCOUNTER 2018-09-06 12:22 | Inpatient (IN) | payer MEDICARE ==
[2018-09-06] MEDS ORDERED: Benzonatate 100 MG CAP PO PRN (17:21)
[2018-09-06] MEDS ORDERED: clonazePAM 0.5 MG TAB PO PRN (17:21)
[2018-09-06] MEDS ORDERED: Acetaminophen/Codeine 30-300mg Tablet PO PRN (20:01)
[2018-09-06] MEDS ORDERED: Amoxicillin/Potassium Clav 875 MG TAB ONE (20:48)
[2018-09-06] MEDS: Calcium Carbonate 500 MG ChewTAB PO PRN (21:08)
[2018-09-06] MEDS: Acetaminophen/Codeine 30-300mg Tablet PO PRN (21:09)
[2018-09-06] MEDS: Ferrous Gluconate 324 MG TAB PO SCH (21:09)
[2018-09-06] MEDS: Amoxicillin/Potassium Clav 500 MG TAB PO SCH (21:11)
[2018-09-06] MEDS: Mometasone/Formoterol 60 PUFF AER INH SCH (21:12)
[2018-09-06] MEDS: clonazePAM 1 MG TAB PO PRN (21:28)
[2018-09-06] MEDS ORDERED: Nicotine 14 MG PATCH TOP SCH (22:15)
[2018-09-07] MEDS: Mometasone/Formoterol 60 PUFF AER INH SCH ×2 (06:38→18:41)
[2018-09-07] MEDS ORDERED: Prevnar 13-Val Conj/PF 0.5 ML SYRINGE IM ONE (09:00)
[2018-09-07] MEDS: Saccharomyces boulardii 250 MG CAP PO SCH (09:21)
[2018-09-07] MEDS: Multivitamin W/ Minerals 1 TAB PO SCH (09:22)
[2018-09-07] MEDS: Amlodipine 10 MG TAB PO SCH (09:22)
[2018-09-07] MEDS: Ferrous Gluconate 324 MG TAB PO SCH ×2 (09:23→21:29)
[2018-09-07] MEDS: Furosemide 20 MG TAB PO SCH (09:23)
[2018-09-07] MEDS: Rosuvastatin 10 MG TAB PO SCH (09:24)
[2018-09-07] MEDS: Lisinopril 5 MG TAB PO SCH (09:26)
[2018-09-07] MEDS: Ondansetron ODT 4 MG TAB PO PRN ×2 (09:27→18:40)
[2018-09-07] MEDS: Potassium Chloride 10 MEQ TAB PO SCH (09:28)
[2018-09-07] MEDS: Clopidogrel Bisulfate 75 MG TAB PO SCH (09:29)
[2018-09-07] MEDS: Calcium Carbonate 500 MG ChewTAB PO PRN (09:58)
[2018-09-07] MEDS: Acetaminophen/Codeine 30-300mg Tablet PO PRN ×2 (09:58→21:29)
[2018-09-07] MEDS: clonazePAM 1 MG TAB PO PRN ×2 (10:01→21:28)
[2018-09-07] MEDS: Fluticasone Propionate Nasal Spray 16 gm Bottle NASAL SCH (10:02)
[2018-09-07] MEDS: Amoxicillin/Potassium Clav 500 MG TAB PO SCH ×3 (10:06→21:28)
[2018-09-07] MEDS: Nicotine 14 MG PATCH TOP SCH (21:28)
[2018-09-08] MEDS: Mometasone/Formoterol 60 PUFF AER INH SCH ×2 (06:47→18:34)
[2018-09-08] MEDS: Potassium Chloride 10 MEQ TAB PO SCH (08:42)
[2018-09-08] MEDS: Clopidogrel Bisulfate 75 MG TAB PO SCH (08:42)
[2018-09-08] MEDS: Ferrous Gluconate 324 MG TAB PO SCH ×2 (08:42→21:23)
[2018-09-08] MEDS: Rosuvastatin 10 MG TAB PO SCH (08:42)
[2018-09-08] MEDS: Multivitamin W/ Minerals 1 TAB PO SCH (08:42)
[2018-09-08] MEDS: Amoxicillin/Potassium Clav 500 MG TAB PO SCH ×3 (08:42→21:23)
[2018-09-08] MEDS: Lisinopril 5 MG TAB PO SCH (08:46)
[2018-09-08] MEDS: Saccharomyces boulardii 250 MG CAP PO SCH (08:46)
[2018-09-08] MEDS: Amlodipine 10 MG TAB PO SCH (08:46)
[2018-09-08] MEDS: Furosemide 20 MG TAB PO SCH (08:46)
[2018-09-08] MEDS: Ondansetron ODT 4 MG TAB PO PRN (09:07)
[2018-09-08] MEDS: clonazePAM 1 MG TAB PO PRN ×2 (09:07→22:47)
[2018-09-08] MEDS: Fluticasone Propionate Nasal Spray 16 gm Bottle NASAL SCH (11:26)
[2018-09-08] MEDS: Acetaminophen/Codeine 30-300mg Tablet PO PRN ×2 (14:16→22:45)
[2018-09-08] MEDS: Nicotine 14 MG PATCH TOP SCH (22:48)
[2018-09-09] MEDS: Mometasone/Formoterol 60 PUFF AER INH SCH ×2 (05:59→18:21)
[2018-09-09] MEDS: Acetaminophen/Codeine 30-300mg Tablet PO PRN ×3 (08:16→21:16)
[2018-09-09] MEDS: Lisinopril 5 MG TAB PO SCH (08:24)
[2018-09-09] MEDS: Potassium Chloride 10 MEQ TAB PO SCH (08:24)
[2018-09-09] MEDS: Furosemide 20 MG TAB PO SCH (08:25)
[2018-09-09] MEDS: Clopidogrel Bisulfate 75 MG TAB PO SCH (08:25)
[2018-09-09] MEDS: Amlodipine 10 MG TAB PO SCH (08:25)
[2018-09-09] MEDS: Ferrous Gluconate 324 MG TAB PO SCH ×2 (08:26→21:15)
[2018-09-09] MEDS: Amoxicillin/Potassium Clav 500 MG TAB PO SCH ×3 (08:26→21:17)
[2018-09-09] MEDS: Multivitamin W/ Minerals 1 TAB PO SCH (08:26)
[2018-09-09] MEDS: Fluticasone Propionate Nasal Spray 16 gm Bottle NASAL SCH (08:27)
[2018-09-09] MEDS: Saccharomyces boulardii 250 MG CAP PO SCH (08:27)
[2018-09-09] MEDS: Rosuvastatin 10 MG TAB PO SCH (08:28)
[2018-09-09] MEDS: clonazePAM 1 MG TAB PO PRN (14:55)
[2018-09-09] MEDS: Calcium Carbonate 500 MG ChewTAB PO PRN ×2 (16:06→21:16)
[2018-09-09] MEDS: Nicotine 14 MG PATCH TOP SCH (21:22)
[2018-09-10] MEDS: Acetaminophen/Codeine 30-300mg Tablet PO PRN ×3 (05:46→20:49)
[2018-09-10] MEDS: Mometasone/Formoterol 60 PUFF AER INH SCH ×2 (05:48→18:40)
[2018-09-10] MEDS: Ferrous Gluconate 324 MG TAB PO SCH ×2 (08:40→20:49)
[2018-09-10] MEDS: Rosuvastatin 10 MG TAB PO SCH (08:41)
[2018-09-10] MEDS: Potassium Chloride 10 MEQ TAB PO SCH (08:41)
[2018-09-10] MEDS: Furosemide 20 MG TAB PO SCH (08:41)
[2018-09-10] MEDS: Saccharomyces boulardii 250 MG CAP PO SCH (08:41)
[2018-09-10] MEDS: Lisinopril 5 MG TAB PO SCH (08:41)
[2018-09-10] MEDS: Amlodipine 10 MG TAB PO SCH (08:42)
[2018-09-10] MEDS: Fluticasone Propionate Nasal Spray 16 gm Bottle NASAL SCH (08:42)
[2018-09-10] MEDS: Multivitamin W/ Minerals 1 TAB PO SCH (08:42)
[2018-09-10] MEDS: Clopidogrel Bisulfate 75 MG TAB PO SCH (08:42)
[2018-09-10] MEDS: Amoxicillin/Potassium Clav 500 MG TAB PO SCH ×3 (08:43→20:50)
[2018-09-10] MEDS: clonazePAM 1 MG TAB PO PRN ×2 (08:51→20:48)
[2018-09-10] MEDS: Calcium Carbonate 500 MG ChewTAB PO PRN ×2 (13:47→18:18)
[2018-09-10] MEDS: Nicotine 14 MG PATCH TOP SCH (20:55)
[2018-09-11] MEDS ORDERED: Acetaminophen/Codeine 30-300mg Tablet ONE (09:00)
[2018-09-11] MEDS ORDERED: clonazePAM 1 MG TAB ONE (09:00)
[2018-09-11] MEDS: clonazePAM 1 MG TAB PO PRN ×2 (11:15→21:38)
[2018-09-11] MEDS: Amoxicillin/Potassium Clav 500 MG TAB PO SCH ×3 (11:24→21:18)
[2018-09-11] MEDS: Fluticasone Propionate Nasal Spray 16 gm Bottle NASAL SCH (11:24)
[2018-09-11] MEDS: Ferrous Gluconate 324 MG TAB PO SCH ×2 (11:25→21:18)
[2018-09-11] MEDS: Clopidogrel Bisulfate 75 MG TAB PO SCH (11:26)
[2018-09-11] MEDS: Furosemide 20 MG TAB PO SCH (11:27)
[2018-09-11] MEDS: Lisinopril 5 MG TAB PO SCH (11:27)
[2018-09-11] MEDS: Multivitamin W/ Minerals 1 TAB PO SCH (11:27)
[2018-09-11] MEDS: Rosuvastatin 10 MG TAB PO SCH (11:28)
[2018-09-11] MEDS: Potassium Chloride 10 MEQ TAB PO SCH (11:28)
[2018-09-11] MEDS: Saccharomyces boulardii 250 MG CAP PO SCH (11:28)
[2018-09-11] MEDS: Acetaminophen/Codeine 30-300mg Tablet PO PRN ×2 (11:29→21:28)
[2018-09-11] MEDS: Amlodipine 10 MG TAB PO SCH (11:30)
[2018-09-11] MEDS: Mometasone/Formoterol 60 PUFF AER INH SCH ×2 (11:30→18:53)
[2018-09-11] MEDS: Calcium Carbonate 500 MG ChewTAB PO PRN ×2 (14:35→21:38)
[2018-09-11] MEDS: Nicotine 14 MG PATCH TOP SCH (21:29)
[2018-09-12] MEDS: Mometasone/Formoterol 60 PUFF AER INH SCH ×2 (06:31→19:04)
[2018-09-12] MEDS: Fluticasone Propionate Nasal Spray 16 gm Bottle NASAL SCH (09:18)
[2018-09-12] MEDS: Rosuvastatin 10 MG TAB PO SCH (09:19)
[2018-09-12] MEDS: Multivitamin W/ Minerals 1 TAB PO SCH (09:20)
[2018-09-12] MEDS: Ferrous Gluconate 324 MG TAB PO SCH ×2 (09:20→20:50)
[2018-09-12] MEDS: Amlodipine 10 MG TAB PO SCH (09:20)
[2018-09-12] MEDS: Furosemide 20 MG TAB PO SCH (09:20)
[2018-09-12] MEDS: Saccharomyces boulardii 250 MG CAP PO SCH (09:20)
[2018-09-12] MEDS: Potassium Chloride 10 MEQ TAB PO SCH (09:21)
[2018-09-12] MEDS: Clopidogrel Bisulfate 75 MG TAB PO SCH (09:21)
[2018-09-12] MEDS: Lisinopril 5 MG TAB PO SCH (09:22)
[2018-09-12] MEDS: Acetaminophen/Codeine 30-300mg Tablet PO PRN ×2 (09:28→20:49)
[2018-09-12] MEDS: clonazePAM 1 MG TAB PO PRN ×2 (09:29→20:48)
[2018-09-12] MEDS: Calcium Carbonate 500 MG ChewTAB PO PRN (20:49)
[2018-09-12] MEDS: Nicotine 14 MG PATCH TOP SCH (20:50)
[2018-09-13] MEDS: Mometasone/Formoterol 60 PUFF AER INH SCH ×2 (06:35→18:18)
[2018-09-13] MEDS: Acetaminophen/Codeine 30-300mg Tablet PO PRN ×2 (08:23→20:44)
[2018-09-13] MEDS: clonazePAM 1 MG TAB PO PRN ×2 (08:24→20:43)
[2018-09-13] MEDS: Fluticasone Propionate Nasal Spray 16 gm Bottle NASAL SCH (08:25)
[2018-09-13] MEDS: Ferrous Gluconate 324 MG TAB PO SCH ×2 (08:26→20:44)
[2018-09-13] MEDS: Lisinopril 5 MG TAB PO SCH (08:26)
[2018-09-13] MEDS: Rosuvastatin 10 MG TAB PO SCH (08:26)
[2018-09-13] MEDS: Potassium Chloride 10 MEQ TAB PO SCH (08:28)
[2018-09-13] MEDS: Furosemide 20 MG TAB PO SCH (08:31)
[2018-09-13] MEDS: Amlodipine 10 MG TAB PO SCH (08:31)
[2018-09-13] MEDS: Saccharomyces boulardii 250 MG CAP PO SCH (08:32)
[2018-09-13] MEDS: Multivitamin W/ Minerals 1 TAB PO SCH (08:32)
[2018-09-13] MEDS: Clopidogrel Bisulfate 75 MG TAB PO SCH (08:32)
[2018-09-13] MEDS: Calcium Carbonate 500 MG ChewTAB PO PRN (18:24)
[2018-09-13] MEDS: Nicotine 14 MG PATCH TOP SCH (20:45)
[2018-09-14 05:38] LABS: #Lymphocytes 1.1 thou/uL (1.20-3.40); #Monocytes 0.6 thou/uL (0.11-0.59); %Basophils 0.9 % (0.0-1.0); %Lymphocytes 23.4 % (21.0-51.0); %Monocytes 11.6 % (0.0-10.0); %Neutrophils 63.2 % (42.0-75.0); Hemoglobin 9.3 g/dL (12.0-16.0); Mean Corpuscular HGB CONC 30.7 g/dL (32.0-36.0); Mean Corpuscular Hemoglobin 28.6 pg (27.0-31.0); Mean Corpuscular Volume 93.2 fL (78.0-98.0); Platelet Count 175 thou/uL (130-400); RBC Distribution Width 16.7 % (11.5-14.5); Red Blood Cell (RBC) Count 3.25 mill/uL (4.20-5.40); White Blood Cell (WBC) Count 4.8 thou/uL (4.8-10.8)
[2018-09-14 06:00] LABS: ALT (SGPT) 21 U/L (8-55); AST (SGOT) 15 U/L (5-34); Alkaline Phosphatase 127 U/L (40-150); Anion Gap 10 mmol/L (10-20); BUN (Urea Nitrogen) 6 mg/dL (9.8-20.1); Bilirubin, Total 0.3 mg/dL (0.2-1.2); Calc. Creatinine Clearance 92 mL/min (70-130); Calcium 8.7 mg/dL (7.8-10.44); Carbon Dioxide 25 mmol/L (23-31); Chloride 110 mmol/L (98-107); Estimated GFR-MDRD Greater than 90; Globulin 2.6 g/dL (2.4-3.5); Glucose 98 mg/dL (80-115); Potassium 3.7 mmol/L (3.5-5.1); Protein, Total 5.6 g/dL (6.0-8.3); Sodium 141 mmol/L (136-145)
[2018-09-14] MEDS: Acetaminophen/Codeine 30-300mg Tablet PO PRN ×2 (06:33→21:18)
[2018-09-14] MEDS: Mometasone/Formoterol 60 PUFF AER INH SCH ×2 (06:34→18:24)
[2018-09-14] MEDS: Fluticasone Propionate Nasal Spray 16 gm Bottle NASAL SCH (10:17)
[2018-09-14] MEDS: Clopidogrel Bisulfate 75 MG TAB PO SCH (10:20)
[2018-09-14] MEDS: Rosuvastatin 10 MG TAB PO SCH (10:20)
[2018-09-14] MEDS: Lisinopril 5 MG TAB PO SCH (10:20)
[2018-09-14] MEDS: Potassium Chloride 10 MEQ TAB PO SCH (10:20)
[2018-09-14] MEDS: Amlodipine 10 MG TAB PO SCH (10:21)
[2018-09-14] MEDS: clonazePAM 1 MG TAB PO PRN ×2 (10:22→21:12)
[2018-09-14] MEDS: Multivitamin W/ Minerals 1 TAB PO SCH (10:22)
[2018-09-14] MEDS: Ferrous Gluconate 324 MG TAB PO SCH ×2 (10:22→21:11)
[2018-09-14] MEDS: Furosemide 20 MG TAB PO SCH (10:22)
[2018-09-14] MEDS: Saccharomyces boulardii 250 MG CAP PO SCH (10:24)
[2018-09-14] MEDS: Calcium Carbonate 500 MG ChewTAB PO PRN (14:01)
[2018-09-14 17:46] VITALS: BMI 23.8
[2018-09-14] MEDS: Nicotine 14 MG PATCH TOP SCH (21:52)
[2018-09-15] MEDS: Mometasone/Formoterol 60 PUFF AER INH SCH ×2 (05:49→18:46)
[2018-09-15] MEDS: Fluticasone Propionate Nasal Spray 16 gm Bottle NASAL SCH (10:07)
[2018-09-15] MEDS: Saccharomyces boulardii 250 MG CAP PO SCH (10:08)
[2018-09-15] MEDS: Furosemide 20 MG TAB PO SCH (10:08)
[2018-09-15] MEDS: Multivitamin W/ Minerals 1 TAB PO SCH (10:08)
[2018-09-15] MEDS: Amlodipine 10 MG TAB PO SCH (10:08)
[2018-09-15] MEDS: Rosuvastatin 10 MG TAB PO SCH (10:09)
[2018-09-15] MEDS: Ferrous Gluconate 324 MG TAB PO SCH ×2 (10:09→20:43)
[2018-09-15] MEDS: clonazePAM 1 MG TAB PO PRN ×2 (10:09→20:45)
[2018-09-15] MEDS: Clopidogrel Bisulfate 75 MG TAB PO SCH (10:10)
[2018-09-15] MEDS: Lisinopril 5 MG TAB PO SCH (10:10)
[2018-09-15] MEDS: Potassium Chloride 10 MEQ TAB PO SCH (10:11)
[2018-09-15] MEDS: Acetaminophen/Codeine 30-300mg Tablet PO PRN ×2 (10:11→20:44)
[2018-09-15] MEDS ORDERED: Nystatin Powder 15 GM BOT TOP PRN (12:16)
[2018-09-15] MEDS: Calcium Carbonate 500 MG ChewTAB PO PRN (18:48)
[2018-09-15] MEDS: Nicotine 14 MG PATCH TOP SCH (22:05)
[2018-09-16] MEDS: Mometasone/Formoterol 60 PUFF AER INH SCH (06:02)
[2018-09-16 06:51] VITALS: TEMP 98.4
[2018-09-16] MEDS: Amlodipine 10 MG TAB PO SCH (09:01)
[2018-09-16] MEDS: Multivitamin W/ Minerals 1 TAB PO SCH (09:01)
[2018-09-16] MEDS: Saccharomyces boulardii 250 MG CAP PO SCH (09:01)
[2018-09-16] MEDS: Ferrous Gluconate 324 MG TAB PO SCH (09:02)
[2018-09-16] MEDS: Clopidogrel Bisulfate 75 MG TAB PO SCH (09:02)
[2018-09-16] MEDS: Rosuvastatin 10 MG TAB PO SCH (09:02)
[2018-09-16] MEDS: Furosemide 20 MG TAB PO SCH (09:03)
[2018-09-16] MEDS: Potassium Chloride 10 MEQ TAB PO SCH (09:03)
[2018-09-16] MEDS: Lisinopril 5 MG TAB PO SCH (09:03)
[2018-09-16] MEDS: Fluticasone Propionate Nasal Spray 16 gm Bottle NASAL SCH (09:04)
[2018-09-16] MEDS: Acetaminophen/Codeine 30-300mg Tablet PO PRN (09:10)
[2018-09-16] MEDS: clonazePAM 1 MG TAB PO PRN (09:11)
[2018-09-16 09:19] VITALS: BP 130/60
--- NOTE | 2018-09-16 13:57 | DIS ---
DATE OF ADMISSION: 09/06/2018 DATE OF DISCHARGE: 09/16/2018 DISCHARGE DIAGNOSES: Physical deconditioning, aspiration pneumonia, chronic obstructive pulmonary disease, coronary artery disease status post ST-elevation myocardial infarction with stent placement, diastolic congestive heart failure, hypertension. SECONDARY DIAGNOSES: Hypothyroidism, chronic kidney disease stage 3. PROCEDURES: None. HOSPITAL COURSE: A 68-year-old female transitioned to our facility to participate with physical therapy and occupational therapy along with speech therapy, status post admission at [facility] in [place]. At that facility, she was treated for aspiration pneumonia with IV antibiotics, eventually transitioning to p.o. Augmentin to finish out the course in our facility, which she has effectively done. The patient was deemed to possibly have aspirated secondary to sedating medications which she takes for her chronic pain and anxiety. These were held at [place] and resumed at our facility with no apparent issue. She was continued on a pureed diet with nectar thick liquids with no further complications noted. The patient has had a recent admission for ST elevated VA with stent placement to the RCA. Due to her recent admissions, she did have notable physical deconditioning; however, was able to successfully work with the therapists here to achieve her goals enabling her to return to her home setting. Her daughter is to stay with her for a brief time. She has [employer] along with provider services as well. The patient has completed her p.o. antibiotics, has met the goals set forth by therapy and is stable on room air with an intake and output at baseline and is appropriate for discharge at this time. DISPOSITION: The patient will discharge her home setting. Her daughter will stay with her for the next couple of weeks. She has [facility] provider services for continued care. She will follow up with myself in the clinic next week. DISCHARGE MEDICATIONS: I have sent nicotine patches as a new medicine for the patient. She will continue her home medicines including Zoloft 50 mg p.o. daily , Crestor 10 mg p.o. at bedtime, potassium chloride 20 mEq p.o. daily, Protonix 40 mg p.o. daily, Symbicort 2 puffs b.i.d., lisinopril 5 mg p.o. daily, daily multivitamin, Lasix 20 mg p.o. daily, Flonase 1 spray to each nostril daily, ferrous gluconate 324 mg p.o. b.i.d., diltiazem 120 mg p.o. daily, Plavix 75 mg p.o. daily, clonazepam 0.5 mg p.o. q.8 hours p.r.n., aspirin 81 mg p.o. daily, amlodipine 10 mg p.o. daily and Tylenol No. 3 one tab p.o. q.6 hours p.r.n. MTDD
== END 2018-09-16 12:02 | disposition home health service (06) | DRG 178 ==
LOC: BURMED 16:00
PROVIDERS: ADMIT Family Medicine; ATTEND Family Medicine
DX: J69.0 Pneumonitis due to inhalation of food and vomit (principal); J96.10 Chronic respiratory failure, unspecified whether with hypoxia or hypercapnia; I13.0 Hypertensive heart and chronic kidney disease with heart failure and stage 1 through stage 4 chronic kidney disease, or unspecified chronic kidney disease; I50.32 Chronic diastolic (congestive) heart failure; I25.119 Atherosclerotic heart disease of native coronary artery with unspecified angina pectoris; I25.2 Old myocardial infarction; J44.9 Chronic obstructive pulmonary disease, unspecified; Z95.5 Presence of coronary angioplasty implant and graft; K21.9 Gastro-esophageal reflux disease without esophagitis; G89.29 Other chronic pain; F41.9 Anxiety disorder, unspecified; Z99.81 Dependence on supplemental oxygen; E03.9 Hypothyroidism, unspecified; E78.5 Hyperlipidemia, unspecified; Z90.49 Acquired absence of other specified parts of digestive tract; Z90.710 Acquired absence of both cervix and uterus; T14.8XXA Other injury of unspecified body region, initial encounter; Z66 Do not resuscitate; N18.3 Chronic kidney disease, stage 3 (moderate); T42.75XA Adverse effect of unspecified antiepileptic and sedative-hypnotic drugs, initial encounter; R53.1 Weakness
CPT/HCPCS: 36415; 80053; 85025; 90471; 90662; 94664; G0008; G8978-GP-CL; G8979-GP-CJ; G8987-GO-CK; G8988-GO-CI; J7620; Q0162

== ENCOUNTER 2018-09-28 19:09 | Emergency (ER) | payer MEDICARE ==
[2018-09-28] MEDS ORDERED: Sterile Water 100 ML ONE (19:34)
[2018-09-28] MEDS ORDERED: Triple Antibiotic Oint 1 GM Packet ONE (19:34)
--- NOTE | 2018-09-28 20:58 | RAD ---
LUMBAR SPINE THREE VIEWS: 09/28/2018 COMPARISON: 10/04/2014 FINDINGS: A prior posterior fusion at L5-S1 with pedicle screws is noted. The disk spacer remains in a similar position as before. Retrolisthesis of L3 on L4 is present, as before, but is a little more pronounc ed. The main change, over time, has been increasing narrowing of all disk spaces with vacuum phenomenon i n all of them. No acute vertebral fracture is seen. No acute changes in alignment are appreciated. The SI joints are symmetrical. Scoliosis, convex left, is noted. IMPRESSION: 1. No acute traumatic change. 2. Advancing multilevel degenerative disk disease. POS: HOME
--- NOTE | 2018-09-28 20:59 | CT ---
CT BRAIN WITHOUT CONTRAST: 09/28/2018 HISTORY/TECHNIQUE: A noncontrast CT was done following trauma. FINDINGS: The ventricles are normal in size for age and atrophy. No intracranial bleeding or extraaxial hemato ma is seen. There is no signs of mass, edema, or stroke. The skull appears intact. There is no air -fluid level in the sphenoid sinus, and the mastoid air cells are clear. There is deviation of the n salvador septum toward the left, obviously not a new finding. The visible paranasal sinuses are clear. IMPRESSION: No acute intracranial findings. POS: HOME
== END 2018-09-28 20:00 | disposition home or self-care (01) ==
LOC: BURERS 19:09
DX: S09.90XA Unspecified injury of head, initial encounter (principal); S41.111A Laceration without foreign body of right upper arm, initial encounter; M54.5 Low back pain; G43.909 Migraine, unspecified, not intractable, without status migrainosus; E78.5 Hyperlipidemia, unspecified; J44.9 Chronic obstructive pulmonary disease, unspecified; E03.9 Hypothyroidism, unspecified; K21.9 Gastro-esophageal reflux disease without esophagitis; F17.210 Nicotine dependence, cigarettes, uncomplicated; F41.9 Anxiety disorder, unspecified; F32.9 Major depressive disorder, single episode, unspecified; Z79.899 Other long term (current) drug therapy; Z79.891 Long term (current) use of opiate analgesic; W19.XXXA Unspecified fall, initial encounter
CPT/HCPCS: 70450; 72100

== ENCOUNTER 2019-06-24 09:04 | Inpatient (IN) | payer MEDICARE ==
[2019-06-24] MEDS ORDERED: Cyclobenzaprine 10 MG TAB PO PRN (21:40)
[2019-06-24] MEDS ORDERED: Ondansetron ODT 4 MG TAB PO PRN (21:40)
[2019-06-24] MEDS ORDERED: hydrALAZINE 20 MG/ML VIAL SLOW IVP PRN (21:40)
[2019-06-24] MEDS ORDERED: SUMATRIPTAN SUCCINATE 50 MG PO PRN (21:40)
[2019-06-24] MEDS ORDERED: oxyCODONE ER 10 MG TAB PO SCH (23:30)
[2019-06-24] MEDS ORDERED: oxyCODONE ER 20 MG TAB PO SCH (23:30)
[2019-06-24] MEDS: Ibuprofen 200 MG TAB PO SCH (23:31)
[2019-06-24] MEDS: clonazePAM 0.5 MG TAB PO SCH (23:44)
[2019-06-24 23:50] VITALS: BMI 24.9
[2019-06-25] MEDS: Nicotine 14 MG PATCH TOP SCH ×2 (00:46→21:35)
[2019-06-25] MEDS ORDERED: OXYCODONE 10 MG PO SCH (01:00)
[2019-06-25 04:35] LABS: #Basophils 0.1 thou/uL (0.0-0.2); #Eosinphils 0.1 thou/uL (0.0-0.7); #Lymphocytes 2.3 thou/uL (1.20-3.40); #Monocytes 0.7 thou/uL (0.11-0.59); #Neutrophils 3.3 thou/uL (1.40-6.50); %Eosinophils 1.7 % (0.0-10.0); %Lymphocytes 35.9 % (21.0-51.0); %Monocytes 11.1 % (0.0-10.0); %Neutrophils 50.3 % (42.0-75.0); Mean Corpuscular Volume 96.8 fL (78.0-98.0); Platelet Count 138 thou/uL (130-400); RBC Distribution Width 12.5 % (11.5-14.5); Red Blood Cell (RBC) Count 3.88 mill/uL (4.20-5.40); White Blood Cell (WBC) Count 6.5 thou/uL (4.8-10.8)
[2019-06-25 04:59] LABS: ALT (SGPT) 203 U/L (8-55); AST (SGOT) 67 U/L (5-34); Albumin 3.5 g/dL (3.4-4.8); Alkaline Phosphatase 202 U/L (40-150); Anion Gap 12 mmol/L (10-20); BUN (Urea Nitrogen) 12 mg/dL (9.8-20.1); Bilirubin, Total 0.3 mg/dL (0.2-1.2); Calc. Creatinine Clearance 81 mL/min (70-130); Calcium 9.4 mg/dL (7.8-10.44); Carbon Dioxide 23 mmol/L (23-31); Chloride 108 mmol/L (98-107); Estimated GFR-MDRD Greater than 90; Globulin 2.7 g/dL (2.4-3.5); Glucose 98 mg/dL (83-110); Potassium 4.2 mmol/L (3.5-5.1); Protein, Total 6.2 g/dL (6.0-8.3); Sodium 139 mmol/L (136-145)
[2019-06-25] MEDS: traMADol HCl 50 MG TAB PO PRN ×3 (05:16→21:34)
[2019-06-25] MEDS: clonazePAM 0.5 MG TAB PO SCH (05:20)
[2019-06-25] MEDS: Mometasone/Formoterol 60 PUFF AER INH SCH ×3 (06:33→17:11)
[2019-06-25] MEDS ORDERED: Non-Formulary Item 1 EACH (Budesonide-Formoterol [Symbicort 160-4.5] 2 PUFF) INH SCH (07:00)
[2019-06-25] MEDS: Ferrous Gluconate 324 MG TAB PO SCH ×2 (08:53→17:09)
[2019-06-25] MEDS: Amlodipine 10 MG TAB PO SCH (08:53)
[2019-06-25] MEDS: Ibuprofen 200 MG TAB PO SCH ×3 (08:54→23:50)
[2019-06-25] MEDS: Potassium Chloride 10 MEQ TAB PO SCH (08:54)
[2019-06-25] MEDS: Famotidine 20 MG TAB PO SCH ×2 (08:55→20:45)
[2019-06-25] MEDS: Gabapentin 100 MG CAP PO SCH ×3 (08:56→20:45)
[2019-06-25] MEDS: Aspirin Chewable 81 MG TAB PO SCH (08:56)
[2019-06-25] MEDS: Fluticasone Propionate Nasal Spray 16 gm Bottle NASAL SCH (08:59)
[2019-06-25] MEDS: oxyCODONE ER 10 MG TAB PO SCH ×2 (11:08→23:53)
[2019-06-25] MEDS: oxyCODONE ER 20 MG TAB PO SCH ×2 (11:09→23:49)
[2019-06-25] MEDS: Artificial Tear Sol 15 ML BOT EA EYE PRN (13:00)
[2019-06-25] MEDS: clonazePAM 1 MG TAB PO SCH ×2 (13:47→20:45)
[2019-06-25] MEDS: Lisinopril 5 MG TAB PO SCH (20:44)
[2019-06-26] MEDS: Mometasone/Formoterol 60 PUFF AER INH SCH ×2 (06:11→18:22)
[2019-06-26] MEDS: clonazePAM 1 MG TAB PO SCH ×3 (06:11→21:19)
[2019-06-26] MEDS: Ibuprofen 200 MG TAB PO SCH ×3 (08:43→23:56)
[2019-06-26] MEDS: Potassium Chloride 10 MEQ TAB PO SCH (08:43)
[2019-06-26] MEDS: Amlodipine 10 MG TAB PO SCH (08:43)
[2019-06-26] MEDS: Ferrous Gluconate 324 MG TAB PO SCH ×2 (08:43→16:18)
[2019-06-26] MEDS: Gabapentin 100 MG CAP PO SCH ×3 (08:45→21:19)
[2019-06-26] MEDS: Famotidine 20 MG TAB PO SCH ×2 (08:45→21:19)
[2019-06-26] MEDS: Fluticasone Propionate Nasal Spray 16 gm Bottle NASAL SCH (08:45)
[2019-06-26] MEDS: Furosemide 20 MG TAB PO PRN (08:45)
[2019-06-26] MEDS: Aspirin Chewable 81 MG TAB PO SCH (08:45)
[2019-06-26] MEDS: oxyCODONE ER 10 MG TAB PO SCH ×2 (11:09→23:57)
[2019-06-26] MEDS: oxyCODONE ER 20 MG TAB PO SCH ×2 (11:09→23:58)
[2019-06-26] MEDS: Lisinopril 5 MG TAB PO SCH (21:19)
[2019-06-26] MEDS: Nicotine 14 MG PATCH TOP SCH (21:22)
[2019-06-27] MEDS: clonazePAM 1 MG TAB PO SCH ×3 (06:01→21:18)
[2019-06-27] MEDS: Mometasone/Formoterol 60 PUFF AER INH SCH ×2 (06:01→18:42)
[2019-06-27] MEDS: Aspirin Chewable 81 MG TAB PO SCH (08:47)
[2019-06-27] MEDS: Famotidine 20 MG TAB PO SCH ×2 (08:47→21:16)
[2019-06-27] MEDS: Amlodipine 10 MG TAB PO SCH (08:48)
[2019-06-27] MEDS: Potassium Chloride 10 MEQ TAB PO SCH (08:48)
[2019-06-27] MEDS: Ferrous Gluconate 324 MG TAB PO SCH ×2 (08:48→17:03)
[2019-06-27] MEDS: Gabapentin 100 MG CAP PO SCH ×3 (08:48→21:12)
[2019-06-27] MEDS: Ibuprofen 200 MG TAB PO SCH ×2 (08:50→17:03)
[2019-06-27] MEDS: Fluticasone Propionate Nasal Spray 16 gm Bottle NASAL SCH (08:58)
[2019-06-27] MEDS: oxyCODONE ER 20 MG TAB PO SCH (11:29)
[2019-06-27] MEDS: oxyCODONE ER 10 MG TAB PO SCH (11:31)
[2019-06-27] MEDS: Lisinopril 5 MG TAB PO SCH (21:13)
[2019-06-27] MEDS: Nicotine 14 MG PATCH TOP SCH (21:23)
[2019-06-28] MEDS: oxyCODONE ER 20 MG TAB PO SCH (00:15)
[2019-06-28] MEDS: oxyCODONE ER 10 MG TAB PO SCH (00:17)
[2019-06-28] MEDS: Ibuprofen 200 MG TAB PO SCH (00:18)
[2019-06-28] MEDS: clonazePAM 1 MG TAB PO SCH ×3 (05:53→21:07)
[2019-06-28] MEDS: Mometasone/Formoterol 60 PUFF AER INH SCH ×2 (05:54→18:16)
[2019-06-28] MEDS: Amlodipine 10 MG TAB PO SCH (07:58)
[2019-06-28] MEDS: Ferrous Gluconate 324 MG TAB PO SCH ×2 (07:58→17:10)
[2019-06-28] MEDS: Aspirin Chewable 81 MG TAB PO SCH (07:58)
[2019-06-28] MEDS: Famotidine 20 MG TAB PO SCH ×2 (07:58→21:08)
[2019-06-28] MEDS: Potassium Chloride 10 MEQ TAB PO SCH (07:58)
[2019-06-28] MEDS: HYDROcodone/Acetaminophen 10/325 mg Tablet PO SCH ×3 (07:59→23:29)
[2019-06-28] MEDS: Gabapentin 100 MG CAP PO SCH ×3 (08:00→21:08)
[2019-06-28] MEDS: Fluticasone Propionate Nasal Spray 16 gm Bottle NASAL SCH (08:00)
[2019-06-28] MEDS: Furosemide 20 MG TAB PO PRN (08:04)
[2019-06-28] MEDS ORDERED: traMADol HCl 50 MG TAB PO SCH (09:00)
[2019-06-28] MEDS: traMADol HCl 50 MG TAB PO PRN (12:01)
[2019-06-28] MEDS: Ibuprofen 200 MG TAB PO PRN (14:07)
[2019-06-28] MEDS: Lisinopril 5 MG TAB PO SCH (21:08)
[2019-06-28] MEDS: Nicotine 14 MG PATCH TOP SCH (21:08)
[2019-06-29] MEDS: traMADol HCl 50 MG TAB PO PRN ×2 (02:25→21:30)
[2019-06-29] MEDS: clonazePAM 1 MG TAB PO SCH ×3 (05:54→21:29)
[2019-06-29] MEDS: Mometasone/Formoterol 60 PUFF AER INH SCH ×2 (05:54→18:24)
[2019-06-29] MEDS: Gabapentin 100 MG CAP PO SCH ×3 (08:20→21:29)
[2019-06-29] MEDS: Potassium Chloride 10 MEQ TAB PO SCH (08:20)
[2019-06-29] MEDS: Amlodipine 10 MG TAB PO SCH (08:20)
[2019-06-29] MEDS: Famotidine 20 MG TAB PO SCH ×2 (08:20→21:29)
[2019-06-29] MEDS: Ferrous Gluconate 324 MG TAB PO SCH ×2 (08:21→16:27)
[2019-06-29] MEDS: HYDROcodone/Acetaminophen 10/325 mg Tablet PO SCH ×3 (08:21→23:09)
[2019-06-29] MEDS: Aspirin Chewable 81 MG TAB PO SCH (08:21)
[2019-06-29] MEDS: Fluticasone Propionate Nasal Spray 16 gm Bottle NASAL SCH (08:22)
[2019-06-29] MEDS: Ibuprofen 200 MG TAB PO PRN (13:02)
[2019-06-29] MEDS: Nicotine 14 MG PATCH TOP SCH (21:30)
[2019-06-29] MEDS: Lisinopril 5 MG TAB PO SCH (21:30)
[2019-06-30] MEDS: Ibuprofen 200 MG TAB PO PRN ×2 (01:54→13:59)
[2019-06-30] MEDS: clonazePAM 1 MG TAB PO SCH ×3 (06:26→20:52)
[2019-06-30] MEDS: Mometasone/Formoterol 60 PUFF AER INH SCH ×2 (06:27→18:01)
[2019-06-30] MEDS: Gabapentin 100 MG CAP PO SCH ×3 (08:46→20:49)
[2019-06-30] MEDS: Ferrous Gluconate 324 MG TAB PO SCH ×2 (08:46→16:36)
[2019-06-30] MEDS: Potassium Chloride 10 MEQ TAB PO SCH (08:46)
[2019-06-30] MEDS: Amlodipine 10 MG TAB PO SCH (08:46)
[2019-06-30] MEDS: Famotidine 20 MG TAB PO SCH ×2 (08:47→20:47)
[2019-06-30] MEDS: HYDROcodone/Acetaminophen 10/325 mg Tablet PO SCH ×2 (08:47→15:47)
[2019-06-30] MEDS: Aspirin Chewable 81 MG TAB PO SCH (08:47)
[2019-06-30] MEDS: Artificial Tear Sol 15 ML BOT EA EYE PRN (08:52)
[2019-06-30] MEDS: Fluticasone Propionate Nasal Spray 16 gm Bottle NASAL SCH (08:58)
[2019-06-30] MEDS: Lisinopril 5 MG TAB PO SCH (20:47)
[2019-06-30] MEDS: traMADol HCl 50 MG TAB PO PRN (20:58)
[2019-06-30] MEDS: Nicotine 14 MG PATCH TOP SCH (20:58)
[2019-07-01] MEDS: HYDROcodone/Acetaminophen 10/325 mg Tablet PO SCH ×4 (00:06→22:38)
[2019-07-01] MEDS: clonazePAM 1 MG TAB PO SCH ×3 (05:20→22:13)
[2019-07-01] MEDS: Ibuprofen 200 MG TAB PO PRN (05:21)
[2019-07-01] MEDS: Mometasone/Formoterol 60 PUFF AER INH SCH ×2 (06:03→18:23)
[2019-07-01] MEDS: Amlodipine 10 MG TAB PO SCH (08:35)
[2019-07-01] MEDS: Famotidine 20 MG TAB PO SCH ×2 (08:36→20:52)
[2019-07-01] MEDS: Gabapentin 100 MG CAP PO SCH ×3 (08:36→20:52)
[2019-07-01] MEDS: Potassium Chloride 10 MEQ TAB PO SCH (08:36)
[2019-07-01] MEDS: Aspirin Chewable 81 MG TAB PO SCH (08:37)
[2019-07-01] MEDS: Ferrous Gluconate 324 MG TAB PO SCH ×2 (08:37→17:47)
[2019-07-01] MEDS: Fluticasone Propionate Nasal Spray 16 gm Bottle NASAL SCH (08:39)
[2019-07-01] MEDS: Artificial Tear Sol 15 ML BOT EA EYE PRN (12:14)
[2019-07-01] MEDS: traMADol HCl 50 MG TAB PO PRN (12:32)
[2019-07-01] MEDS ORDERED: SUMATRIPTAN SUCCINATE 50 MG PO PRN (18:09)
[2019-07-01] MEDS: Lisinopril 5 MG TAB PO SCH (20:52)
[2019-07-01] MEDS: Nicotine 14 MG PATCH TOP SCH (22:14)
[2019-07-02] MEDS: traMADol HCl 50 MG TAB PO PRN (02:21)
[2019-07-02 03:06] VITALS: TEMP 97.9
[2019-07-02 03:07] VITALS: BP 117/61
[2019-07-02] MEDS: clonazePAM 1 MG TAB PO SCH ×2 (06:17→14:17)
[2019-07-02] MEDS: Mometasone/Formoterol 60 PUFF AER INH SCH (06:17)
[2019-07-02] MEDS: Artificial Tear Sol 15 ML BOT EA EYE PRN (09:04)
[2019-07-02] MEDS: Fluticasone Propionate Nasal Spray 16 gm Bottle NASAL SCH (09:04)
[2019-07-02] MEDS: HYDROcodone/Acetaminophen 10/325 mg Tablet PO SCH ×2 (09:07→14:17)
[2019-07-02] MEDS: Aspirin Chewable 81 MG TAB PO SCH (09:07)
[2019-07-02] MEDS: Potassium Chloride 10 MEQ TAB PO SCH (09:08)
[2019-07-02] MEDS: Famotidine 20 MG TAB PO SCH (09:08)
[2019-07-02] MEDS: Amlodipine 10 MG TAB PO SCH (09:08)
[2019-07-02] MEDS: Gabapentin 100 MG CAP PO SCH ×2 (09:09→14:18)
[2019-07-02] MEDS: Ferrous Gluconate 324 MG TAB PO SCH (09:09)
--- NOTE | 2019-07-02 13:26 | DIS ---
DATE OF ADMISSION: 06/24/2019 DATE OF DISCHARGE: 07/02/2019 ADMISSION DIAGNOSES: Impaired gait, status post fall with resultant bilateral patella fractures. SECONDARY DIAGNOSES: Chronic pain syndrome, hypertension, chronic diastolic congestive heart failure, chronic obstructive pulmonary disease, elevated liver function tests, and anxiety with depression. HOSPITAL COURSE: A 69-year-old female presented to our facility at [facility] for physical therapy and occupational therapy, status post admission at [facility] in [place] after she had sustained a ground level fall; apparently, the patient fell secondary to her friend stepping on her shoelace causing her to fall forward onto her knees. Subsequent evaluation reveals fracture of bilateral patellas. She was evaluated by orthopedic surgeon and advised that no surgical intervention was necessary. The patient was placed in bilateral knee bracing and provided pain management therapy. She typically lives alone and thus transitioned here to participate with physical therapy and occupational therapy to improve her functional status; while here, she had improved her mobility to the point where she is now able to transition back to her home setting. Her son will be staying with her and she will also have [facility] to further transition safely. She is equipped with a walker to aid in ambulation. As far as her pain control, she will resume back to her prior medications, which include Tylenol with codeine and tramadol for breakthrough pain. Of note, at her initial admission, she did have holding of her Crestor and Tylenol with codeine secondary to increased LFTs. Her LFTs did trend down appropriately. I will go ahead and resume her back on the usual medications and plan to reassess her liver enzymes in a clinical setting. At this time, the patient was discharged home and she is comfortable with the plan in doing so. DISPOSITION: The patient was discharged home and her son will be staying with her. She will have [facility] for further physical therapy and occupational therapy. DISCHARGE MEDICATIONS: 1. Tylenol No. 4 q.6 hours p.r.n. 2. Tramadol ER 100 mg daily. 3. Crestor 40 mg daily. 4. Sumatriptan 50 mg daily p.r.n. 5. Clonazepam 1 mg q.8 hours. 6. Potassium chloride 20 mEq daily. 7. Zoloft 50 mg daily. 8. Symbicort 2 puffs inhaled b.i.d. 9. Aspirin 81 mg daily. 10. Ferrous gluconate 324 mg b.i.d. 11. Amlodipine 10 mg daily. 12. Lisinopril 5 mg daily. 13. Lasix 20 mg daily as needed. 14. DuoNebs q.4 hours p.r.n. 15. Gabapentin 100 mg t.i.d. 16. Famotidine 20 mg b.i.d. 17. Cyclobenzaprine 5 mg t.i.d. p.r.n. Job ID: [id number]
== END 2019-07-02 14:45 | disposition home health service (06) | DRG 560 ==
LOC: BURMED 17:42
PROVIDERS: ADMIT Family Medicine; ATTEND Family Medicine
DX: S82.002D Unspecified fracture of left patella, subsequent encounter for closed fracture with routine healing (principal); I50.32 Chronic diastolic (congestive) heart failure; S82.001D Unspecified fracture of right patella, subsequent encounter for closed fracture with routine healing; G89.4 Chronic pain syndrome; I11.0 Hypertensive heart disease with heart failure; J44.9 Chronic obstructive pulmonary disease, unspecified; F41.9 Anxiety disorder, unspecified; F32.9 Major depressive disorder, single episode, unspecified; R79.89 Other specified abnormal findings of blood chemistry; W18.30XD Fall on same level, unspecified, subsequent encounter
CPT/HCPCS: 36415; 80053; 85025; 94664; Q0162

== ENCOUNTER 2019-08-26 21:16 | Emergency (ER) | payer MEDICARE ==
[2019-08-26] MEDS ORDERED: traMADol HCl 50 MG TAB ONE (21:33)
== END 2019-08-26 21:42 | disposition home or self-care (01) ==
LOC: BURERS 21:16
DX: S83.92XA Sprain of unspecified site of left knee, initial encounter (principal); J44.9 Chronic obstructive pulmonary disease, unspecified; E78.00 Pure hypercholesterolemia, unspecified; E78.5 Hyperlipidemia, unspecified; I10 Essential (primary) hypertension; E03.9 Hypothyroidism, unspecified; K21.9 Gastro-esophageal reflux disease without esophagitis; F41.9 Anxiety disorder, unspecified; F32.9 Major depressive disorder, single episode, unspecified; F17.210 Nicotine dependence, cigarettes, uncomplicated; G43.909 Migraine, unspecified, not intractable, without status migrainosus; Z79.899 Other long term (current) drug therapy; X50.9XXA Other and unspecified overexertion or strenuous movements or postures, initial encounter
CPT/HCPCS: 99283

== ENCOUNTER 2019-11-01 14:29 | Outpatient (CLI) | payer MEDICARE ==
--- NOTE | 2019-11-02 07:24 | RAD ---
LUMBAR SPINE THREE VIEWS: Date: 11-01-19 Comparison: 10-04-14 FINDINGS: The patient has lumbar rotoscoliosis convex left. The degree of curvature has advanced since 2013. Po sterior fusion with pedicle screws at L5-S1 is noted as before. The alignment at this level of L5 on S1 seems approximately the same. The disc spacer is in the same position. There has been advancing de generative disc disease at multiple levels in the interval. The is particularly true at L3-4 and L2-3 , but is also seen at the levels above this. The disc spaces are now narrower. There is a little more sclerosis of the endplates and vacuum phenomenon of the disc spaces is more prominent. The SI joints are symmetrical. The aorta is calcified and there is a question of whether the upper abdominal aorta is abnormally widened. An elective CT or ultrasound to check for an aortic aneurysm might be prudent . The finding is not definite but worthy of follow up. IMPRESSION: 1. Scoliosis with increased curvature since 2013. 2. Multilevel degenerative disc disease which has advanced at all levels since 2013. 3. Faint calcification of the aorta. Questionable widening of upper aorta. I would recommend an elect richard ultrasound or CT to be sure that there is no aneurysm. Code T POS: HOME
== END 2019-11-01 14:30 | disposition home or self-care (01) ==
LOC: BURRAD 14:29
PROVIDERS: ATTEND Family Medicine
DX: M54.5 Low back pain (principal); M51.36 Other intervertebral disc degeneration, lumbar region; M41.9 Scoliosis, unspecified; I70.0 Atherosclerosis of aorta
CPT/HCPCS: 72100

== ENCOUNTER 2019-11-02 19:07 | Emergency (ER) | payer MEDICARE ==
[2019-11-02 20:18] LABS: Bilirubin Negative (Negative); Blood, Urine Negative (Negative); Clarity Clear (Clear); Glucose, Urine (Dipstick) Negative (Negative); Leukocyte Trace (Negative); Nitrite Negative (Negative); Protein, Urine (Dipstick) Negative (Neg-Trace); Urobilinogen 0.2 mg/dL (Less than 2)
[2019-11-02 20:19] LABS: ALT (SGPT) 61 U/L (8-55); AST (SGOT) 37 U/L (5-34); Albumin 4.6 g/dL (3.4-4.8); Alkaline Phosphatase 171 U/L (40-110); Anion Gap 17 mmol/L (10-20); BUN (Urea Nitrogen) 8 mg/dL (9.8-20.1); Bilirubin, Total 0.3 mg/dL (0.2-1.2); Calc. Creatinine Clearance 0 mL/min (70-130); Carbon Dioxide 24 mmol/L (23-31); Chloride 100 mmol/L (98-107); Estimated GFR-MDRD 76; Globulin 3.3 g/dL (2.4-3.5); Glucose 87 mg/dL (83-110); Lipase 22 U/L (8-78); Potassium 4.8 mmol/L (3.5-5.1); Protein, Total 7.9 g/dL (6.0-8.3); Sodium 136 mmol/L (136-145)
[2019-11-02 20:22] LABS: Bacteria/HPF None Seen HPF (None Seen); Broad Cast None Seen LPF (None Seen); Calcium Oxalate Crystals None Seen HPF (None Seen); Cellular Cast None Seen LPF (None Seen); Epithelial Cast None Seen LPF (None Seen); Fatty Cast None Seen LPF (None Seen); Mucous/LPF None Seen LPF (<2+); Other Casts None Seen LPF (None Seen); Oval Fat Bodies/HPF None Seen HPF (None Seen); RBC/HPF None Seen HPF (0-3); Red Blood Cell Cast None Seen LPF (None Seen); Renal Epithelial None Seen HPF (None Seen); Sperm/HPF None Seen HPF (None Seen); Squamous Epithelial None Seen HPF (0-3); Transitional Epithelial None Seen HPF (None Seen); Trichomonas/HPF None Seen HPF (None Seen); Triple Phosphate Crystal None Seen HPF (None Seen); Unclassified Crystals None Seen HPF (None Seen); WBC/HPF None Seen HPF (0-3); Waxy Cast None Seen LPF (None Seen); White Blood Cell Cast None Seen LPF (None Seen); Yeast-Budding None Seen HPF (None Seen); Yeast-Hyphae None Seen HPF (None Seen)
[2019-11-02 20:28] LABS: Eosinophils 3 % (0-10); Hemoglobin 14.5 g/dL (12.0-16.0); Lymphocytes 37 % (21-51); MDiff Complete? YES; Mean Corpuscular HGB CONC 31.6 g/dL (32.0-36.0); Mean Corpuscular Hemoglobin 30.8 pg (27.0-31.0); Mean Corpuscular Volume 97.3 fL (78.0-98.0); Mean Platelet Volume 8.1 fL (7.4-10.4); Monocytes 5 % (0-10); Neutrophil 55 % (42-75); Platelet Count 216 thou/uL (130-400); RBC Distribution Width 12.7 % (11.5-14.5); Red Blood Cell (RBC) Count 4.72 mill/uL (4.20-5.40); White Blood Cell (WBC) Count 6.4 thou/uL (4.8-10.8)
--- NOTE | 2019-11-02 21:03 | RAD ---
PORTABLE CHEST: 11/02/19 An AP portable film at 2024 is compared with a 06/22/19 study done at [facility]. The heart is stable in size. There is no congestive change or pleural effusion. The lungs are clear e xcept for some minor right basilar scarring. A calcified granuloma in the right lung is partially obs cured by an EKG lead. IMPRESSION: No acute finding. POS: HOME
== END 2019-11-02 20:46 | disposition home or self-care (01) ==
LOC: BURERS 19:07
DX: R07.89 Other chest pain (principal); G43.909 Migraine, unspecified, not intractable, without status migrainosus; J44.9 Chronic obstructive pulmonary disease, unspecified; E78.5 Hyperlipidemia, unspecified; E78.00 Pure hypercholesterolemia, unspecified; I10 Essential (primary) hypertension; E03.9 Hypothyroidism, unspecified; K21.9 Gastro-esophageal reflux disease without esophagitis; F41.9 Anxiety disorder, unspecified; F32.9 Major depressive disorder, single episode, unspecified; F17.210 Nicotine dependence, cigarettes, uncomplicated; Z79.899 Other long term (current) drug therapy
CPT/HCPCS: 71045; 80053; 81003; 81015; 83605; 83690; 84443; 84484; 85025; 87804; 93005

== ENCOUNTER 2019-11-09 09:50 | Outpatient (CLI) | payer MEDICARE ==
--- NOTE | 2019-11-09 17:52 | ULT ---
ABDOMINAL AORTA ULTRASOUND 11/09/19 Ultrasonography of the abdominal aorta was done in response to a suggestion of widening of the upper aorta on recent ER ultrasound. I reviewed a 04/12/16 CT of the abdomen on the patient and found that was the case at the time. At the time, the upper abdominal aorta was about 3.6 cm wide. Today's ultrasound study parallels the prior findings. Maximal transverse diameter of the proximal ab dominal aorta was 3.7 cm, mid aorta 1.5 cm, distal aorta 1.4 cm. Thus, there has been no significant supervisor policy change clerks time. IMPRESSION: 3.7 cm proximal abdominal aorta widening with little change since a 2016 CT scan. POS: HOME
== END 2019-11-09 09:51 | disposition home or self-care (01) ==
LOC: BURULT 09:50
PROVIDERS: ATTEND Family Medicine
DX: I77.811 Abdominal aortic ectasia (principal)
CPT/HCPCS: 76775

== ENCOUNTER 2020-01-07 18:35 | Emergency (ER) | payer MEDICARE ==
[2020-01-07] MEDS ORDERED: Lorazepam 0.5 MG TAB ONE (19:15)
[2020-01-07 19:20] LABS: #Lymphocytes 0.8 thou/uL (1.20-3.40); #Monocytes 0.2 thou/uL (0.11-0.59); #Neutrophils 5.4 thou/uL (1.40-6.50); %Basophils 0.4 % (0.0-1.0); %Lymphocytes 12.1 % (21.0-51.0); %Monocytes 3.4 % (0.0-10.0); Hemoglobin 12.5 g/dL (12.0-16.0); Mean Corpuscular HGB CONC 31.9 g/dL (32.0-36.0); Mean Corpuscular Hemoglobin 30.3 pg (27.0-31.0); Mean Corpuscular Volume 95.2 fL (78.0-98.0); Mean Platelet Volume 8.5 fL (7.4-10.4); Platelet Count 208 thou/uL (130-400); RBC Distribution Width 13.2 % (11.5-14.5); Red Blood Cell (RBC) Count 4.12 mill/uL (4.20-5.40); White Blood Cell (WBC) Count 6.4 thou/uL (4.8-10.8)
[2020-01-07 19:30] LABS: ALT (SGPT) 21 U/L (8-55); AST (SGOT) 16 U/L (5-34); Alkaline Phosphatase 86 U/L (40-110); Anion Gap 14 mmol/L (10-20); BUN (Urea Nitrogen) 13 mg/dL (9.8-20.1); Bilirubin, Total Less than 0.2 mg/dL (0.2-1.2); Calc. Creatinine Clearance 0 mL/min (70-130); Calcium 9.1 mg/dL (7.8-10.44); Carbon Dioxide 23 mmol/L (23-31); Chloride 107 mmol/L (98-107); Estimated GFR-MDRD 71; Globulin 2.6 g/dL (2.4-3.5); Glucose 99 mg/dL (83-110); Potassium 4.6 mmol/L (3.5-5.1); Protein, Total 6.6 g/dL (6.0-8.3); Sodium 139 mmol/L (136-145)
== END 2020-01-07 19:51 | disposition home or self-care (01) ==
LOC: BURERS 18:35
DX: F41.9 Anxiety disorder, unspecified (principal); F13.239 Sedative, hypnotic or anxiolytic dependence with withdrawal, unspecified; K21.9 Gastro-esophageal reflux disease without esophagitis; I10 Essential (primary) hypertension; E78.5 Hyperlipidemia, unspecified; G43.909 Migraine, unspecified, not intractable, without status migrainosus; J44.9 Chronic obstructive pulmonary disease, unspecified; F32.9 Major depressive disorder, single episode, unspecified; F17.210 Nicotine dependence, cigarettes, uncomplicated; Z79.899 Other long term (current) drug therapy; Z79.891 Long term (current) use of opiate analgesic
CPT/HCPCS: 36415; 80053; 84484; 85025; 93005

== ENCOUNTER 2020-01-26 17:23 | Emergency (ER) | payer MEDICARE | END 2020-01-26 17:43 | disposition home or self-care (01) | LOC: BURERS 17:23 | DX: T81.31XA Disruption of external operation (surgical) wound, not elsewhere classified, initial encounter (principal); K21.9 Gastro-esophageal reflux disease without esophagitis; E78.5 Hyperlipidemia, unspecified; I10 Essential (primary) hypertension; G43.909 Migraine, unspecified, not intractable, without status migrainosus; J44.9 Chronic obstructive pulmonary disease, unspecified; F41.9 Anxiety disorder, unspecified; F32.9 Major depressive disorder, single episode, unspecified; F17.210 Nicotine dependence, cigarettes, uncomplicated; Z79.899 Other long term (current) drug therapy; Z79.891 Long term (current) use of opiate analgesic | CPT/HCPCS: 99282 ==

== ENCOUNTER 2020-02-01 19:05 | Emergency (ER) | payer MEDICARE ==
[2020-02-01] MEDS ORDERED: Amoxicillin/Potassium Clav 875 MG TAB ONE (19:27)
== END 2020-02-01 19:33 | disposition home or self-care (01) ==
LOC: BURERS 19:05
DX: T81.41XA Infection following a procedure, superficial incisional surgical site, initial encounter (principal); E03.9 Hypothyroidism, unspecified; K21.9 Gastro-esophageal reflux disease without esophagitis; I10 Essential (primary) hypertension; G43.909 Migraine, unspecified, not intractable, without status migrainosus; J44.9 Chronic obstructive pulmonary disease, unspecified; F41.9 Anxiety disorder, unspecified; F32.9 Major depressive disorder, single episode, unspecified; F17.210 Nicotine dependence, cigarettes, uncomplicated; E78.5 Hyperlipidemia, unspecified; Z79.899 Other long term (current) drug therapy; Z79.891 Long term (current) use of opiate analgesic
CPT/HCPCS: 99283

== ENCOUNTER 2020-02-16 14:10 | Emergency (ER) | payer MEDICARE | END 2020-02-16 14:39 | disposition home or self-care (01) | LOC: BURERS 14:10 | DX: G89.29 Other chronic pain (principal); M54.5 Low back pain; E03.9 Hypothyroidism, unspecified; K21.9 Gastro-esophageal reflux disease without esophagitis; E78.5 Hyperlipidemia, unspecified; I10 Essential (primary) hypertension; G43.909 Migraine, unspecified, not intractable, without status migrainosus; J44.9 Chronic obstructive pulmonary disease, unspecified; F32.9 Major depressive disorder, single episode, unspecified; F17.210 Nicotine dependence, cigarettes, uncomplicated; F41.9 Anxiety disorder, unspecified | CPT/HCPCS: 99283 ==

== ENCOUNTER 2020-02-22 18:45 | Emergency (ER) | payer MEDICARE ==
[2020-02-22] MEDS ORDERED: Ketorolac Tromethamine 30 MG/ML VIAL ONE (19:27)
--- NOTE | 2020-02-22 22:51 | RAD ---
PELVIS ONE VIEW: 02/22/20 The bony pelvis appears intact With no fractures evident. The right hip appears intact. The left arth roplasty is normal in appearance. There is no widening or offset of the symphysis. The SI joints are symmetrical. The pubic rings appear intact. A posterior fusion with pedicle screws is seen at the L5-S1 level. IMPRESSION: No acute bony findings. POS: HOME
--- NOTE | 2020-02-22 22:52 | RAD ---
RIGHT KNEE THREE VIEWS: 02/22/20 No fracture or joint effusion was seen. There is very slight medial joint space narrowing and perhaps the beginnings of some tiny osteophytes medially. Faint arterial calcifications are present. There i s some slight irregularity of the articular surface of the patella. IMPRESSION: No acute bony findings. POS: HOME
== END 2020-02-22 19:33 | disposition home or self-care (01) ==
LOC: BURERS 18:45
DX: S51.011A Laceration without foreign body of right elbow, initial encounter (principal); S39.012A Strain of muscle, fascia and tendon of lower back, initial encounter; E03.9 Hypothyroidism, unspecified; K21.9 Gastro-esophageal reflux disease without esophagitis; E78.5 Hyperlipidemia, unspecified; I10 Essential (primary) hypertension; G43.909 Migraine, unspecified, not intractable, without status migrainosus; J44.9 Chronic obstructive pulmonary disease, unspecified; F41.9 Anxiety disorder, unspecified; F32.9 Major depressive disorder, single episode, unspecified; F17.210 Nicotine dependence, cigarettes, uncomplicated; Z79.899 Other long term (current) drug therapy; W01.0XXA Fall on same level from slipping, tripping and stumbling without subsequent striking against object, initial encounter
CPT/HCPCS: 72170; 96372; J1885

== ENCOUNTER 2020-04-09 15:57 | Emergency (ER) | payer MEDICARE ==
[2020-04-09] MEDS ORDERED: Ondansetron PF 4 MG/2 ML Vial ONE (16:08)
[2020-04-09] MEDS ORDERED: Lorazepam 0.5 MG TAB ONE (16:09)
[2020-04-09 16:32] LABS: #Basophils 0.1 thou/uL (0.0-0.2); #Lymphocytes 2.5 thou/uL (1.20-3.40); #Monocytes 0.6 thou/uL (0.11-0.59); #Neutrophils 6.4 thou/uL (1.40-6.50); %Eosinophils 0.5 % (0.0-10.0); %Lymphocytes 25.7 % (21.0-51.0); %Monocytes 6.2 % (0.0-10.0); %Neutrophils 66.5 % (42.0-75.0); Hemoglobin 13.2 g/dL (12.0-16.0); Mean Corpuscular HGB CONC 32.1 g/dL (32.0-36.0); Mean Corpuscular Hemoglobin 31.7 pg (27.0-31.0); Mean Corpuscular Volume 98.8 fL (78.0-98.0); Mean Platelet Volume 8.7 fL (7.4-10.4); Platelet Count 228 thou/uL (130-400); RBC Distribution Width 13.2 % (11.5-14.5); Red Blood Cell (RBC) Count 4.15 mill/uL (4.20-5.40); White Blood Cell (WBC) Count 9.7 thou/uL (4.8-10.8)
[2020-04-09 16:48] LABS: ALT (SGPT) 24 U/L (8-55); AST (SGOT) 18 U/L (5-34); Albumin 3.8 g/dL (3.4-4.8); Alkaline Phosphatase 160 U/L (40-110); Anion Gap 13 mmol/L (10-20); BUN (Urea Nitrogen) 7 mg/dL (9.8-20.1); Bilirubin, Total Less than 0.2 mg/dL (0.2-1.2); Calc. Creatinine Clearance 0 mL/min (70-130); Calcium 8.1 mg/dL (7.8-10.44); Carbon Dioxide 23 mmol/L (23-31); Chloride 104 mmol/L (98-107); Estimated GFR-MDRD 88; Globulin 2.3 g/dL (2.4-3.5); Glucose 89 mg/dL (83-110); Lipase 21 U/L (8-78); Potassium 3.6 mmol/L (3.5-5.1); Protein, Total 6.1 g/dL (6.0-8.3); Sodium 136 mmol/L (136-145)
--- NOTE | 2020-04-10 07:34 | RAD ---
PORTABLE CHEST: DATE: 04/09/2020. FINDINGS: An AP portable film at 1642 is compared with a 11/02/2019 study. There has been no adverse interval change. The heart is borderline in size but no different than bef ore. There is no vascular congestion, edema, or pleural effusion. The lungs are clear. There is a large dense calcification in the right mid lung region that measures about 1.4 cm in size and is pres umed to be a calcified granuloma. It has been on multiple prior studies. IMPRESSION: No acute thoracic findings. POS: HOME
[2020-04-11 11:29] LABS: SARS-CoV-2 MS2 Positive; SARS-CoV-2 N Gene Negative; SARS-CoV-2 S Gene Negative; SARS-CoV-2 orf1ab Negative
== END 2020-04-09 17:29 | disposition home or self-care (01) ==
LOC: BURERS 15:57
DX: R07.89 Other chest pain (principal); F41.9 Anxiety disorder, unspecified; F13.239 Sedative, hypnotic or anxiolytic dependence with withdrawal, unspecified; J44.9 Chronic obstructive pulmonary disease, unspecified; R60.0 Localized edema; E03.9 Hypothyroidism, unspecified; K21.9 Gastro-esophageal reflux disease without esophagitis; E78.5 Hyperlipidemia, unspecified; I10 Essential (primary) hypertension; G43.909 Migraine, unspecified, not intractable, without status migrainosus; F32.9 Major depressive disorder, single episode, unspecified; F17.210 Nicotine dependence, cigarettes, uncomplicated; Z73.3 Stress, not elsewhere classified; Z76.0 Encounter for issue of repeat prescription; Z79.899 Other long term (current) drug therapy
CPT/HCPCS: 71045; 80053; 83690; 83880; 84484; 85025; 93005; 94760; U0003; 87635; 96374; J2405

== ENCOUNTER 2020-05-11 18:46 | Emergency (ER) | payer MEDICARE ==
[2020-05-11] MEDS ORDERED: Lorazepam 0.5 MG TAB ONE (19:53)
[2020-05-11] MEDS ORDERED: Ondansetron ODT 4 MG TAB ONE (19:53)
[2020-05-11] MEDS ORDERED: Aspirin Chewable 81 MG TAB ONE (19:54)
[2020-05-11 20:17] LABS: #Basophils 0.1 thou/uL (0.0-0.2); #Lymphocytes 1.8 thou/uL (1.20-3.40); #Monocytes 0.6 thou/uL (0.11-0.59); %Eosinophils 0.6 % (0.0-10.0); %Lymphocytes 27.3 % (21.0-51.0); %Neutrophils 62.2 % (42.0-75.0); Hemoglobin 12.3 g/dL (12.0-16.0); Mean Corpuscular HGB CONC 31.7 g/dL (32.0-36.0); Mean Corpuscular Hemoglobin 31.1 pg (27.0-31.0); Mean Corpuscular Volume 98.1 fL (78.0-98.0); Mean Platelet Volume 9.1 fL (7.4-10.4); Platelet Count 168 thou/uL (130-400); RBC Distribution Width 13.3 % (11.5-14.5); Red Blood Cell (RBC) Count 3.95 mill/uL (4.20-5.40); White Blood Cell (WBC) Count 6.5 thou/uL (4.8-10.8)
[2020-05-11 20:32] LABS: ALT (SGPT) 61 U/L (8-55); AST (SGOT) 41 U/L (5-34); Albumin 4.1 g/dL (3.4-4.8); Alkaline Phosphatase 205 U/L (40-110); Anion Gap 14 mmol/L (10-20); BUN (Urea Nitrogen) 8 mg/dL (9.8-20.1); Bilirubin, Total 0.3 mg/dL (0.2-1.2); Calc. Creatinine Clearance 0 mL/min (70-130); Calcium 9.1 mg/dL (7.8-10.44); Carbon Dioxide 26 mmol/L (23-31); Chloride 95 mmol/L (98-107); Estimated GFR-MDRD 73; Globulin 2.6 g/dL (2.4-3.5); Glucose 99 mg/dL (83-110); Lipase 25 U/L (8-78); Potassium 3.4 mmol/L (3.5-5.1); Protein, Total 6.7 g/dL (6.0-8.3); Sodium 132 mmol/L (136-145)
--- NOTE | 2020-05-11 21:38 | RAD ---
PORTABLE CHEST: 05/11/20 An AP portable film at 1940 is compared with a 04/09/20 study. The heart remains normal in size and the lungs are clear. No acute infiltrate or effusion was seen. T here is no vascular congestion or edema. A large calcified nodule is again seen in the right mid lung zone measuring 1.4 cm in size. It has not changed over the interval. IMPRESSION: No acute thoracic finding. POS: HOME
== END 2020-05-11 21:18 | disposition home or self-care (01) ==
LOC: BURERS 18:46
DX: T42.4X1A Poisoning by benzodiazepines, accidental (unintentional), initial encounter (principal); R07.89 Other chest pain; F41.9 Anxiety disorder, unspecified; R11.0 Nausea; E03.9 Hypothyroidism, unspecified; K21.9 Gastro-esophageal reflux disease without esophagitis; E78.5 Hyperlipidemia, unspecified; I10 Essential (primary) hypertension; G43.909 Migraine, unspecified, not intractable, without status migrainosus; J44.9 Chronic obstructive pulmonary disease, unspecified; F32.9 Major depressive disorder, single episode, unspecified; F17.210 Nicotine dependence, cigarettes, uncomplicated; Z79.899 Other long term (current) drug therapy
CPT/HCPCS: 71045; 80053; 83690; 84484; 85025; 93005; 94760; Q0162

== ENCOUNTER 2020-05-12 12:49 | Emergency (ER) | payer MEDICARE ==
[2020-05-12 13:44] LABS: Anion Gap 14 mmol/L (10-20); BUN (Urea Nitrogen) 5 mg/dL (9.8-20.1); Calc. Creatinine Clearance 0 mL/min (70-130); Calcium 9.2 mg/dL (7.8-10.44); Carbon Dioxide 27 mmol/L (23-31); Chloride 100 mmol/L (98-107); Estimated GFR-MDRD 81; Glucose 111 mg/dL (83-110); Sodium 137 mmol/L (136-145)
== END 2020-05-12 13:58 | disposition home or self-care (01) ==
LOC: BURERS 12:49
DX: F13.239 Sedative, hypnotic or anxiolytic dependence with withdrawal, unspecified (principal); E03.9 Hypothyroidism, unspecified; K21.9 Gastro-esophageal reflux disease without esophagitis; E78.5 Hyperlipidemia, unspecified; I10 Essential (primary) hypertension; J44.9 Chronic obstructive pulmonary disease, unspecified; F41.9 Anxiety disorder, unspecified; F32.9 Major depressive disorder, single episode, unspecified; F17.210 Nicotine dependence, cigarettes, uncomplicated; G43.909 Migraine, unspecified, not intractable, without status migrainosus; Z79.899 Other long term (current) drug therapy
CPT/HCPCS: 36415; 80048; 84484; 93005

== ENCOUNTER 2020-05-15 06:55 | Emergency (ER) | payer MEDICARE ==
[2020-05-15 07:49] LABS: #Basophils 0.1 thou/uL (0.0-0.2); #Eosinphils 0.1 thou/uL (0.0-0.7); #Lymphocytes 1.7 thou/uL (1.20-3.40); #Monocytes 0.7 thou/uL (0.11-0.59); #Neutrophils 3.9 thou/uL (1.40-6.50); %Basophils 0.8 % (0.0-1.0); %Eosinophils 1.2 % (0.0-10.0); %Lymphocytes 26.4 % (21.0-51.0); %Monocytes 10.7 % (0.0-10.0); %Neutrophils 60.9 % (42.0-75.0); Hemoglobin 12.6 g/dL (12.0-16.0); Mean Corpuscular HGB CONC 31.8 g/dL (32.0-36.0); Mean Corpuscular Hemoglobin 30.6 pg (27.0-31.0); Mean Corpuscular Volume 96.2 fL (78.0-98.0); Mean Platelet Volume 10.4 fL (7.4-10.4); Platelet Count 175 thou/uL (130-400); RBC Distribution Width 12.7 % (11.5-14.5); Red Blood Cell (RBC) Count 4.13 mill/uL (4.20-5.40); White Blood Cell (WBC) Count 6.3 thou/uL (4.8-10.8)
[2020-05-15 08:05] LABS: ALT (SGPT) 30 U/L (8-55); AST (SGOT) 23 U/L (5-34); Albumin 3.9 g/dL (3.4-4.8); Alkaline Phosphatase 183 U/L (40-110); Anion Gap 14 mmol/L (10-20); BUN (Urea Nitrogen) 6 mg/dL (9.8-20.1); Bilirubin, Total 0.5 mg/dL (0.2-1.2); Calc. Creatinine Clearance 0 mL/min (70-130); Calcium 9.2 mg/dL (7.8-10.44); Carbon Dioxide 23 mmol/L (23-31); Chloride 96 mmol/L (98-107); Estimated GFR-MDRD 84; Globulin 2.4 g/dL (2.4-3.5); Glucose 108 mg/dL (83-110); Protein, Total 6.3 g/dL (6.0-8.3); Sodium 129 mmol/L (136-145)
[2020-05-15] MEDS ORDERED: HYDROcodone/Acetaminophen 5/325 mg Tablet ONE (08:44)
[2020-05-15] MEDS ORDERED: Ondansetron PF 4 MG/2 ML Vial ONE (08:44)
[2020-05-15] MEDS ORDERED: Promethazine HCl 25 MG/ML VIAL ONE (08:51)
--- NOTE | 2020-05-15 13:53 | RAD ---
PORTABLE CHEST: DATE: 05/15/2020. COMPARISON: Comparison is made with the 05/11 study. FINDINGS: The heart is unchanged in size. There is no vascular congestion, edema, or pleural effusion. No foc al pulmonary infiltrate was seen. The calcified nodule in the right lung is no different. There may be a small one on the left as well. IMPRESSION: No acute thoracic findings. POS: HOME
== END 2020-05-15 09:13 | disposition short-term general hospital (02) ==
LOC: BURERS 06:55
DX: R07.2 Precordial pain (principal); K21.9 Gastro-esophageal reflux disease without esophagitis; I10 Essential (primary) hypertension; G43.909 Migraine, unspecified, not intractable, without status migrainosus; J44.9 Chronic obstructive pulmonary disease, unspecified; E03.9 Hypothyroidism, unspecified; E78.5 Hyperlipidemia, unspecified; F41.9 Anxiety disorder, unspecified; F32.9 Major depressive disorder, single episode, unspecified; F17.210 Nicotine dependence, cigarettes, uncomplicated; Z79.899 Other long term (current) drug therapy
CPT/HCPCS: 36415; 71045; 80053; 83880; 84484; 85025; 93005; 96374; J2405; J2550

== ENCOUNTER 2020-06-20 15:37 | Emergency (ER) | payer MEDICARE, OTHER ==
[2020-06-21 14:26] LABS: SARS-CoV-2 MS2 Positive; SARS-CoV-2 N Gene Negative; SARS-CoV-2 S Gene Negative; SARS-CoV-2 orf1ab Negative
== END 2020-06-20 16:05 | disposition home or self-care (01) ==
LOC: BURERS 15:37
DX: J06.9 Acute upper respiratory infection, unspecified (principal); R53.81 Other malaise; R53.83 Other fatigue; R11.2 Nausea with vomiting, unspecified; Z20.828 Contact with and (suspected) exposure to other viral communicable diseases
CPT/HCPCS: 87635; 99283; U0003

== ENCOUNTER 2020-08-16 13:13 | Emergency (ER) | payer MEDICARE, OTHER ==
[2020-08-16] MEDS ORDERED: Acetaminophen/Codeine 30-300mg Tablet ONE (13:53)
== END 2020-08-16 13:58 | disposition home or self-care (01) ==
LOC: BURERS 13:13
DX: M54.5 Low back pain (principal); G89.29 Other chronic pain; M79.604 Pain in right leg; F17.210 Nicotine dependence, cigarettes, uncomplicated; M19.90 Unspecified osteoarthritis, unspecified site; E03.9 Hypothyroidism, unspecified; E78.5 Hyperlipidemia, unspecified; I10 Essential (primary) hypertension; G43.909 Migraine, unspecified, not intractable, without status migrainosus; J44.9 Chronic obstructive pulmonary disease, unspecified; F41.9 Anxiety disorder, unspecified; F32.9 Major depressive disorder, single episode, unspecified; Z79.899 Other long term (current) drug therapy
CPT/HCPCS: 99283

== ENCOUNTER 2020-08-25 19:52 | Emergency (ER) | payer MEDICARE ==
[2020-08-25 20:38] LABS: #Basophils 0.1 thou/uL (0.0-0.2); #Lymphocytes 2.1 thou/uL (1.20-3.40); #Monocytes 0.7 thou/uL (0.11-0.59); #Neutrophils 5.7 thou/uL (1.40-6.50); %Basophils 0.7 % (0.0-1.0); %Eosinophils 0.5 % (0.0-10.0); %Lymphocytes 24.2 % (21.0-51.0); %Neutrophils 66.5 % (42.0-75.0); Hemoglobin 11.9 g/dL (12.0-16.0); Mean Corpuscular Hemoglobin 31.2 pg (27.0-31.0); Mean Corpuscular Volume 97.6 fL (78.0-98.0); Mean Platelet Volume 9.7 fL (7.4-10.4); Platelet Count 188 thou/uL (130-400); RBC Distribution Width 12.4 % (11.5-14.5); Red Blood Cell (RBC) Count 3.82 mill/uL (4.20-5.40); White Blood Cell (WBC) Count 8.5 thou/uL (4.8-10.8)
[2020-08-25 20:39] LABS: ALT (SGPT) 47 U/L (8-55); AST (SGOT) 24 U/L (5-34); Albumin 3.9 g/dL (3.4-4.8); Alkaline Phosphatase 143 U/L (40-110); Anion Gap 15 mmol/L (10-20); BUN (Urea Nitrogen) 7 mg/dL (9.8-20.1); Bilirubin, Total 0.3 mg/dL (0.2-1.2); Calc. Creatinine Clearance 0 mL/min (70-130); Calcium 8.8 mg/dL (7.8-10.44); Carbon Dioxide 23 mmol/L (23-31); Chloride 93 mmol/L (98-107); Estimated GFR-MDRD 85; Globulin 2.3 g/dL (2.4-3.5); Glucose 108 mg/dL (83-110); Potassium 4.3 mmol/L (3.5-5.1); Protein, Total 6.2 g/dL (6.0-8.3); Sodium 127 mmol/L (136-145)
--- NOTE | 2020-08-26 11:45 | RAD ---
PORTABLE CHEST: Date: 08/25/2020 An AP portable film at 2024 hours is compared with the 05/17/2020 study. The heart remains normal in size. There is no vascular congestion, edema, or pleural effusion. No lob ar pulmonary infiltrate was seen. A calcified nodule is seen in the right lower chest and has not carey nged over time. The mediastinum is unremarkable. IMPRESSION: No acute thoracic finding. POS: HOME
== END 2020-08-25 21:11 | disposition home or self-care (01) ==
LOC: BURERS 19:52
DX: R07.89 Other chest pain (principal); E03.9 Hypothyroidism, unspecified; E78.5 Hyperlipidemia, unspecified; I10 Essential (primary) hypertension; G43.909 Migraine, unspecified, not intractable, without status migrainosus; J44.9 Chronic obstructive pulmonary disease, unspecified; M19.90 Unspecified osteoarthritis, unspecified site; F41.9 Anxiety disorder, unspecified; F32.9 Major depressive disorder, single episode, unspecified; F17.210 Nicotine dependence, cigarettes, uncomplicated; Z79.899 Other long term (current) drug therapy
CPT/HCPCS: 71045; 80053; 84484; 85025; 93005

== ENCOUNTER 2020-08-26 02:42 | Emergency (ER) | payer MEDICARE ==
[2020-08-26] MEDS ORDERED: Lidocaine Viscous Sol 2% 15 ml UD Cup ONE (02:47)
[2020-08-26] MEDS ORDERED: Mag-Al Plus 1200 MG/1200 MG/120 MG/30 ML UDCUP ONE (02:47)
== END 2020-08-26 03:45 | disposition home or self-care (01) ==
LOC: BURERS 02:42
DX: R07.89 Other chest pain (principal); M19.90 Unspecified osteoarthritis, unspecified site; E03.9 Hypothyroidism, unspecified; E78.5 Hyperlipidemia, unspecified; I10 Essential (primary) hypertension; G43.909 Migraine, unspecified, not intractable, without status migrainosus; J44.9 Chronic obstructive pulmonary disease, unspecified; F41.9 Anxiety disorder, unspecified; F32.9 Major depressive disorder, single episode, unspecified; F17.210 Nicotine dependence, cigarettes, uncomplicated; Z79.899 Other long term (current) drug therapy
CPT/HCPCS: 84484; 93005

== ENCOUNTER 2020-08-28 21:58 | Emergency (ER) | payer MEDICARE ==
[2020-08-28] MEDS ORDERED: Lidocaine Viscous Sol 2% 15 ml UD Cup ONE (22:11)
[2020-08-28] MEDS ORDERED: Mag-Al Plus 1200 MG/1200 MG/120 MG/30 ML UDCUP ONE (22:11)
[2020-08-28 22:33] LABS: #Basophils 0.1 thou/uL (0.0-0.2); #Lymphocytes 2.2 thou/uL (1.20-3.40); #Monocytes 1.1 thou/uL (0.11-0.59); #Neutrophils 8.7 thou/uL (1.40-6.50); %Basophils 0.5 % (0.0-1.0); %Eosinophils 0.4 % (0.0-10.0); %Lymphocytes 18.2 % (21.0-51.0); %Monocytes 9.3 % (0.0-10.0); %Neutrophils 71.7 % (42.0-75.0); Hemoglobin 12.4 g/dL (12.0-16.0); Mean Corpuscular HGB CONC 33.9 g/dL (32.0-36.0); Mean Corpuscular Hemoglobin 32.2 pg (27.0-31.0); Mean Corpuscular Volume 94.8 fL (78.0-98.0); Mean Platelet Volume 8.8 fL (7.4-10.4); Platelet Count 186 thou/uL (130-400); RBC Distribution Width 12.1 % (11.5-14.5); Red Blood Cell (RBC) Count 3.86 mill/uL (4.20-5.40); White Blood Cell (WBC) Count 12.2 thou/uL (4.8-10.8)
[2020-08-28 22:44] LABS: ALT (SGPT) 99 U/L (8-55); AST (SGOT) 182 U/L (5-34); Albumin 3.9 g/dL (3.4-4.8); Alkaline Phosphatase 168 U/L (40-110); Anion Gap 15 mmol/L (10-20); BUN (Urea Nitrogen) 7 mg/dL (9.8-20.1); Bilirubin, Total 0.4 mg/dL (0.2-1.2); CK (CPK) 218 U/L (29-168); Calc. Creatinine Clearance 0 mL/min (70-130); Calcium 8.6 mg/dL (7.8-10.44); Carbon Dioxide 21 mmol/L (23-31); Chloride 92 mmol/L (98-107); Estimated GFR-MDRD 85; Globulin 2.4 g/dL (2.4-3.5); Glucose 109 mg/dL (83-110); Lipase 24 U/L (8-78); Potassium 4.5 mmol/L (3.5-5.1); Protein, Total 6.3 g/dL (6.0-8.3); Sodium 123 mmol/L (136-145)
[2020-08-28 22:45] LABS: Bilirubin Negative (Negative); Blood, Urine Negative (Negative); Clarity Clear (Clear); Glucose, Urine (Dipstick) Negative (Negative); Ketone, Urine Negative (Negative); Leukocyte Negative (Negative); Nitrite Negative (Negative); Protein, Urine (Dipstick) Negative (Neg-Trace); Urobilinogen 0.2 mg/dL (Less than 2); pH, Urine 6.5 (5.0-9.0)
[2020-08-28] MEDS ORDERED: Nitroglycerin 0.4 MG TAB 1 EACH ONE (22:51)
[2020-08-28] MEDS ORDERED: Nitroglycerin 0.4 MG TAB (25 Tab Bottle) ONE (22:56)
[2020-08-28] MEDS ORDERED: Fentanyl 100 MCG/2 ML VIAL ONE (23:34)
[2020-08-29] MEDS ORDERED: Dicyclomine 20 MG TAB ONE (00:12)
--- NOTE | 2020-08-29 07:20 | RAD ---
PORTABLE CHEST: DATE: 08/28/2020. FINDINGS: An AP portable film at 2237 is compared with a 08/25 study. There has been no adverse interval change. The heart size is the same. There is no congestive bernardo e or pleural effusion. No new infiltrates were appreciated. Calcification in the right lower chest is stable. IMPRESSION: No acute findings. POS: HOME
--- NOTE | 2020-08-29 10:00 | CT ---
PRELIMINARY REPORT/[facility]/EMERGENCY AFTER HOURS PROCEDURE: EXAM: CTA Chest with Intravenous Contrast CLINICAL HISTORY: CHEST PAIN/BURNING SENSATION, ELEV D DIMER TECHNIQUE: Axial CTA images of the chest with intravenous contrast. Three-dimensional MIP/volume rend ered reformations were performed. CONTRAST: With; ISO 370, 64 mL COMPARISON: None provided. FINDINGS: PULMONARY ARTERIES There is no intraluminal filling defect suspicious for PE. AORTA Mural thrombus visualized within the proximal abdominal aorta. No aortic aneurysm or dissection . LUNGS Subsegmental atelectasis at the lung bases. Calcified granuloma in the right upper lobe. PLEURAL SPACES No pleural effusion. No pneumothorax. HEART AND MEDIASTINUM Coronary artery calcifications are present. LYMPH NODES No lymphadenopathy. BONES No focal osseous abnormality or acute fracture. CHEST WALL AND UPPER ABDOMEN Status post cholecystectomy. Common duct is prominent measuring up to 8 mm which may be seen in the setting status post cholecystectomy. IMPRESSION: No pulmonary embolism. No thoracic aortic aneurysm or dissection. ELECTRONICALLY SIGNED BY: Cassy Foster MD Aug 28, 2020 11:50:04 PM CDT FINAL REPORT CT ANGIO OF THE CHEST: DATE: 08/28/2020. FINDINGS: Spiral CT of the chest was performed for evaluation of chest pain and an elevated D-dimer. There is good opacification of the pulmonary arteries. No internal defects were seen to suggest pulm onary emboli. The aorta shows arteriosclerotic change within it including some mural thrombus, parti cularly in the abdominal aorta. There is no sign of dissection. Coronary artery calcifications are quite dense, particularly in the left coronary system. There is no sign of pericardial effusion. Some calcified granulomas are seen in the lungs, the largest being located in the base of the right u pper lobe measuring 1.5 cm. This is a longstanding finding in this patient. Emphysematous changes a re seen in the lungs. No lobar consolidation was present, but there is some basilar atelectasis and scarring. Scans into the upper abdomen showed no acute changes in the areas scanned. I would note that the upp er abdominal aorta dilates transiently to 3.7 cm as it passes through the diaphragm, though the entir e thoracic aorta is somewhat dilated. It then narrows back slightly as it progresses on in the abdom en. IMPRESSION: 1. No evidence of pulmonary embolism or acute aortic disease. 2. Transient dilation of the upper abdominal aorta to 3.7 cm. This is not acute but longstanding. 3. Extensive arteriosclerotic change. Report in agreement with preliminary reading by [facility]. POS: HOME
[2020-08-29] MEDS ORDERED: Iopamidol 370 76% 100 ML VIAL ONE (12:39)
== END 2020-08-29 00:52 | disposition short-term general hospital (02) ==
LOC: BURERS 21:58
DX: R07.89 Other chest pain (principal); E87.1 Hypo-osmolality and hyponatremia; E03.9 Hypothyroidism, unspecified; E78.5 Hyperlipidemia, unspecified; I10 Essential (primary) hypertension; G43.909 Migraine, unspecified, not intractable, without status migrainosus; J44.9 Chronic obstructive pulmonary disease, unspecified; F17.210 Nicotine dependence, cigarettes, uncomplicated; F41.9 Anxiety disorder, unspecified; Z79.899 Other long term (current) drug therapy
CPT/HCPCS: 71045; 71275; 80053; 81003; 82550; 83690; 83880; 84484; 85025; 85379; 93005; 96374; J3010; Q9967

== ENCOUNTER 2020-10-02 14:38 | Emergency (ER) | payer MEDICARE ==
[2020-10-02] MEDS ORDERED: Acetaminophen 325 MG TAB ONE (15:20)
[2020-10-02] MEDS ORDERED: Ondansetron ODT 4 MG TAB ONE (15:20)
== END 2020-10-02 15:25 | disposition home or self-care (01) ==
LOC: BURERS 14:38
DX: L03.113 Cellulitis of right upper limb (principal); E03.9 Hypothyroidism, unspecified; E78.5 Hyperlipidemia, unspecified; I10 Essential (primary) hypertension; G43.909 Migraine, unspecified, not intractable, without status migrainosus; J44.9 Chronic obstructive pulmonary disease, unspecified; F41.9 Anxiety disorder, unspecified; F32.9 Major depressive disorder, single episode, unspecified; F17.210 Nicotine dependence, cigarettes, uncomplicated; Z79.899 Other long term (current) drug therapy
CPT/HCPCS: 99283; Q0162

== ENCOUNTER 2021-03-10 20:18 | Emergency (ER) | payer MEDICARE ==
[2021-03-10 21:15] LABS: #Eosinphils 0.1 thou/uL (0.0-0.7); #Monocytes 0.6 thou/uL (0.11-0.59); #Neutrophils 4.4 thou/uL (1.40-6.50); %Basophils 0.6 % (0.0-1.0); %Eosinophils 0.8 % (0.0-10.0); %Lymphocytes 27.9 % (21.0-51.0); %Monocytes 8.9 % (0.0-10.0); %Neutrophils 61.9 % (42.0-75.0); Hemoglobin 14.5 g/dL (12.0-16.0); Mean Corpuscular Hemoglobin 32.7 pg (27.0-31.0); Mean Corpuscular Volume 95.9 fL (78.0-98.0); Mean Platelet Volume 10.2 fL (7.4-10.4); Platelet Count 198 thou/uL (130-400); RBC Distribution Width 13.2 % (11.5-14.5); Red Blood Cell (RBC) Count 4.44 mill/uL (4.20-5.40); White Blood Cell (WBC) Count 7.1 thou/uL (4.8-10.8)
[2021-03-10 21:25] LABS: ALT (SGPT) 77 U/L (8-55); AST (SGOT) 29 U/L (5-34); Albumin 4.1 g/dL (3.4-4.8); Alkaline Phosphatase 279 U/L (40-110); Anion Gap 14 mmol/L (10-20); BUN (Urea Nitrogen) 11 mg/dL (9.8-20.1); Bilirubin, Total 0.3 mg/dL (0.2-1.2); Calc. Creatinine Clearance 0 mL/min (70-130); Carbon Dioxide 24 mmol/L (23-31); Chloride 99 mmol/L (98-107); Globulin 2.9 g/dL (2.4-3.5); Glucose 101 mg/dL (83-110); Lipase 26 U/L (8-78); Potassium 4.5 mmol/L (3.5-5.1); Sodium 132 mmol/L (136-145)
[2021-03-10] MEDS ORDERED: Promethazine HCl 25 MG/ML VIAL ONE (21:45)
[2021-03-10] MEDS ORDERED: Ondansetron ODT 4 MG TAB ONE (21:45)
== END 2021-03-10 21:51 | disposition home or self-care (01) ==
LOC: BURERS 20:18
DX: E87.1 Hypo-osmolality and hyponatremia (principal); R11.2 Nausea with vomiting, unspecified; E03.9 Hypothyroidism, unspecified; E78.5 Hyperlipidemia, unspecified; I10 Essential (primary) hypertension; M19.90 Unspecified osteoarthritis, unspecified site; J44.9 Chronic obstructive pulmonary disease, unspecified; F17.210 Nicotine dependence, cigarettes, uncomplicated; Z79.899 Other long term (current) drug therapy
CPT/HCPCS: 36415; 80053; 83605; 83690; 85025; 96372; 99281; J2550; Q0162

== ENCOUNTER 2021-03-29 15:50 | Emergency (ER) | payer MEDICARE ==
[2021-03-29] MEDS ORDERED: Lidocaine 1% PF 5 ML VIAL ONE (16:52)
[2021-03-29] MEDS ORDERED: Bacitracin 1 PK ONE (17:04)
== END 2021-03-29 17:22 | disposition home or self-care (01) ==
LOC: BURERS 15:50
DX: S51.012A Laceration without foreign body of left elbow, initial encounter (principal); S40.012A Contusion of left shoulder, initial encounter; E03.9 Hypothyroidism, unspecified; E78.5 Hyperlipidemia, unspecified; I10 Essential (primary) hypertension; M19.90 Unspecified osteoarthritis, unspecified site; J44.9 Chronic obstructive pulmonary disease, unspecified; F17.210 Nicotine dependence, cigarettes, uncomplicated; Z79.899 Other long term (current) drug therapy
CPT/HCPCS: 12002

== ENCOUNTER 2021-04-09 15:43 | Inpatient (IN) | payer MEDICARE ==
[2021-04-09 16:32] LABS: #Basophils 0.1 thou/uL (0.0-0.2); #Eosinphils 0.2 thou/uL (0.0-0.7); #Neutrophils 10.7 thou/uL (1.40-6.50); %Basophils 0.4 % (0.0-1.0); %Eosinophils 1.1 % (0.0-10.0); %Lymphocytes 14.5 % (21.0-51.0); %Monocytes 7.2 % (0.0-10.0); %Neutrophils 76.8 % (42.0-75.0); Hemoglobin 13.6 g/dL (12.0-16.0); Mean Corpuscular HGB CONC 32.8 g/dL (32.0-36.0); Mean Corpuscular Hemoglobin 31.4 pg (27.0-31.0); Mean Corpuscular Volume 95.9 fL (78.0-98.0); Mean Platelet Volume 7.9 fL (7.4-10.4); Platelet Count 242 thou/uL (130-400); RBC Distribution Width 13.4 % (11.5-14.5); Red Blood Cell (RBC) Count 4.31 mill/uL (4.20-5.40); White Blood Cell (WBC) Count 13.9 thou/uL (4.8-10.8)
[2021-04-09 16:49] LABS: ALT (SGPT) 121 U/L (8-55); AST (SGOT) 250 U/L (5-34); Albumin 3.9 g/dL (3.4-4.8); Alkaline Phosphatase 367 U/L (40-110); Anion Gap 18 mmol/L (10-20); BUN (Urea Nitrogen) 41 mg/dL (9.8-20.1); Bilirubin, Total 0.5 mg/dL (0.2-1.2); CK (CPK) 108 U/L (29-168); Calc. Creatinine Clearance 0 mL/min (70-130); Calcium 9.2 mg/dL (7.8-10.44); Carbon Dioxide 18 mmol/L (23-31); Chloride 102 mmol/L (98-107); Glucose 96 mg/dL (83-110); Potassium 4.2 mmol/L (3.5-5.1); Protein, Total 6.9 g/dL (5.8-8.1); Sodium 134 mmol/L (136-145)
[2021-04-09] MEDS ORDERED: Fentanyl 100 MCG/2 ML VIAL ONE (17:27)
[2021-04-09 17:37] LABS: Alcohol Less than 10 mg/dL (Less than 10); Salicylate 11.6 mg/dL (15.0-30.0)
[2021-04-09] MEDS ORDERED: HYDROcodone/Acetaminophen 5/325 mg Tablet ONE (20:03)
[2021-04-09] MEDS ORDERED: Morphine 4 MG/ML VIAL SLOW IVP PRN (23:23)
[2021-04-09] MEDS ORDERED: Acetaminophen 325 MG TAB PO PRN (23:30)
[2021-04-09] MEDS ORDERED: Ondansetron ODT 4 MG TAB SL PRN (23:30)
[2021-04-09] MEDS ORDERED: Ondansetron PF 4 MG/2 ML Vial IVP PRN (23:30)
[2021-04-09 23:40] VITALS: BMI 26.6
[2021-04-10] MEDS: Sodium Chloride 0.9% 1,000 ML IV SCH ×2 (00:38→20:42)
[2021-04-10] MEDS ORDERED: Nicotine 14 MG PATCH TOP SCH ×2 (00:45→21:00)
[2021-04-10] MEDS ORDERED: [UNRECOGNIZED DRUG - OTHER] PO PRN (06:52)
[2021-04-10] MEDS ORDERED: tiZANidine HCl 4 MG TAB PO PRN (06:52)
[2021-04-10] MEDS ORDERED: Non-Formulary Item 1 EACH (Acetaminophen With Codeine [Acetaminophen/Codeine #4] 300 MG/6 PO PRN (06:52)
[2021-04-10] MEDS ORDERED: BUTALBITAL PO PRN ×2 (06:52→07:05)
[2021-04-10] MEDS ORDERED: ACETAMINOPHEN PO PRN ×2 (06:52→07:05)
[2021-04-10] MEDS ORDERED: Non-Formulary Item 1 EACH (Budesonide-Formoterol [Symbicort 160-4.5] 160 MG/4.5 MG Aer) INH SCH (07:00)
[2021-04-10 07:01] LABS: Bilirubin Negative (Negative); Blood, Urine Negative (Negative); Clarity Clear (Clear); Glucose, Urine (Dipstick) Negative (Negative); Ketone, Urine Negative (Negative); Leukocyte Negative (Negative); Nitrite Negative (Negative); Protein, Urine (Dipstick) Negative (Neg-Trace); Urobilinogen 0.2 mg/dL (Less than 2); pH, Urine 5.5 (5.0-9.0)
[2021-04-10] MEDS ORDERED: [UNRECOGNIZED DRUG - OTHER] PO PRN (07:05)
[2021-04-10 07:13] LABS: #Eosinphils 0.1 thou/uL (0.0-0.7); #Lymphocytes 1.2 thou/uL (1.20-3.40); #Monocytes 0.7 thou/uL (0.11-0.59); #Neutrophils 5.6 thou/uL (1.40-6.50); %Basophils 0.4 % (0.0-1.0); %Eosinophils 1.1 % (0.0-10.0); %Lymphocytes 15.3 % (21.0-51.0); %Monocytes 8.8 % (0.0-10.0); %Neutrophils 74.4 % (42.0-75.0); Hemoglobin 12.5 g/dL (12.0-16.0); Mean Corpuscular HGB CONC 34.4 g/dL (32.0-36.0); Mean Corpuscular Hemoglobin 32.6 pg (27.0-31.0); Mean Corpuscular Volume 94.7 fL (78.0-98.0); Mean Platelet Volume 7.9 fL (7.4-10.4); Platelet Count 188 thou/uL (130-400); RBC Distribution Width 13.5 % (11.5-14.5); Red Blood Cell (RBC) Count 3.84 mill/uL (4.20-5.40); White Blood Cell (WBC) Count 7.6 thou/uL (4.8-10.8)
[2021-04-10 07:27] LABS: Anion Gap 13 mmol/L (10-20)
[2021-04-10] MEDS ORDERED: Polyethylene Glycol 3350 17 GM Packet PO PRN (07:32)
[2021-04-10] MEDS: Rosuvastatin 10 MG TAB PO SCH (08:11)
[2021-04-10] MEDS: Gabapentin 100 MG CAP PO SCH ×2 (08:11→20:25)
[2021-04-10] MEDS: clonazePAM 0.5 MG TAB PO SCH ×2 (08:11→20:27)
[2021-04-10] MEDS: Acetaminophen/Codeine 30-300mg Tablet PO PRN ×3 (08:12→22:58)
[2021-04-10] MEDS: Cholecalciferol 1,000 UNITS (25 MCG) TAB PO SCH (08:13)
[2021-04-10] MEDS: CeleCOXIB 100 MG CAP PO SCH (08:14)
[2021-04-10] MEDS: Ascorbic Acid 500 mg Chewable Tablet PO SCH (08:14)
[2021-04-10] MEDS: Lisinopril 20 MG TAB PO SCH (08:14)
[2021-04-10] MEDS: Furosemide 20 MG TAB PO SCH (08:15)
[2021-04-10] MEDS: Potassium Chloride 20 MEQ TAB PO SCH (08:16)
[2021-04-10 08:34] LABS: Urine Culture Reflex No No
[2021-04-10 08:36] LABS: Bacteria/HPF Rare-Few HPF (None Seen); RBC/HPF None Seen HPF (0-3); Squamous Epithelial 0-3 HPF (0-3); WBC/HPF 0-3 HPF (0-3)
[2021-04-10 08:40] LABS: Calcium 8.8 mg/dL (7.8-10.44)
[2021-04-10 08:45] LABS: ALT (SGPT) 96 U/L (8-55); AST (SGOT) 91 U/L (5-34); Albumin 3.4 g/dL (3.4-4.8); Alkaline Phosphatase 331 U/L (40-110); BUN (Urea Nitrogen) 26 mg/dL (9.8-20.1); Bilirubin, Total 0.5 mg/dL (0.2-1.2); Calc. Creatinine Clearance 59 mL/min (70-130); Carbon Dioxide 19 mmol/L (23-31); Chloride 113 mmol/L (98-107); Globulin 2.6 g/dL (2.4-3.5); Glucose 91 mg/dL (83-110); Potassium 4.3 mmol/L (3.5-5.1); Sodium 141 mmol/L (136-145)
[2021-04-10] MEDS ORDERED: Non-Formulary Item 1 EACH (Esomeprazole Magnesium [Esomeprazole Magnesium] 20 MG Capsule. PO SCH (09:00)
[2021-04-10] MEDS ORDERED: Non-Formulary Item 1 EACH (Cholecalciferol (Vitamin D3) [Vitamin D] 1000 UNIT Capsule) PO SCH (09:00)
[2021-04-10] MEDS ORDERED: CLONAZEPAM 1 MG PO SCH (09:00)
[2021-04-10] MEDS ORDERED: Non-Formulary Item 1 EACH (Celecoxib [Celebrex] 200 MG Capsule) PO SCH (09:00)
[2021-04-10] MEDS ORDERED: Lisinopril 5 MG TAB PO SCH (09:00)
[2021-04-10] MEDS ORDERED: GABAPENTIN 400 MG PO SCH (09:00)
[2021-04-10] MEDS ORDERED: Ascorbic Acid 500 mg Chewable Tablet PO SCH (09:00)
[2021-04-10] MEDS ORDERED: Non-Formulary Item 1 EACH (Potassium Chloride [Potassium Chloride] 10 MEQ Capsule.Er) PO SCH (09:00)
[2021-04-10 15:32] LABS: SARS-CoV-2 PCR by NAA Not Detected (NotDetected)
[2021-04-10] MEDS ORDERED: Mometasone/Formoterol 200/5 60 PUFF INH SCH (19:00)
[2021-04-10] MEDS: Mometasone/Formoterol 200/5 60 PUFF INH SCH (20:27)
[2021-04-10] MEDS ORDERED: Enoxaparin Sodium 40 MG/0.4 ML SYRINGE SC SCH (21:00)
[2021-04-11 06:24] VITALS: TEMP 98
[2021-04-11] MEDS ORDERED: SUMAtriptan Succinate 6 MG/0.5 ML VIAL SC PRN (07:14)
[2021-04-11 07:34] LABS: ALT (SGPT) 58 U/L (8-55); AST (SGOT) 31 U/L (5-34); Albumin 3.2 g/dL (3.4-4.8); Alkaline Phosphatase 249 U/L (40-110); Anion Gap 10 mmol/L (10-20); BUN (Urea Nitrogen) 11 mg/dL (9.8-20.1); Bilirubin, Total 0.4 mg/dL (0.2-1.2); Calc. Creatinine Clearance 74 mL/min (70-130); Calcium 8.8 mg/dL (7.8-10.44); Carbon Dioxide 20 mmol/L (23-31); Chloride 115 mmol/L (98-107); Globulin 2.5 g/dL (2.4-3.5); Glucose 98 mg/dL (83-110); Potassium 4.3 mmol/L (3.5-5.1); Protein, Total 5.7 g/dL (5.8-8.1); Sodium 141 mmol/L (136-145)
[2021-04-11] MEDS: Acetaminophen/Codeine 30-300mg Tablet PO PRN (07:50)
[2021-04-11] MEDS: Rosuvastatin 10 MG TAB PO SCH (08:20)
[2021-04-11] MEDS: Gabapentin 100 MG CAP PO SCH (08:20)
[2021-04-11] MEDS: Potassium Chloride 20 MEQ TAB PO SCH (08:21)
[2021-04-11] MEDS: clonazePAM 0.5 MG TAB PO SCH (08:21)
[2021-04-11] MEDS: Cholecalciferol 1,000 UNITS (25 MCG) TAB PO SCH (08:22)
[2021-04-11] MEDS: Ascorbic Acid 500 mg Chewable Tablet PO SCH (08:22)
[2021-04-11] MEDS: CeleCOXIB 100 MG CAP PO SCH (08:22)
[2021-04-11] MEDS: Furosemide 20 MG TAB PO SCH (08:22)
[2021-04-11] MEDS: Lisinopril 20 MG TAB PO SCH (08:27)
[2021-04-11] MEDS: Mometasone/Formoterol 200/5 60 PUFF INH SCH (08:36)
[2021-04-11 08:38] VITALS: BP 133/62
== END 2021-04-11 13:36 | disposition swing bed (61) | DRG 683 ==
LOC: BURERS 15:43 → BURMED 19:15
PROVIDERS: ADMIT Family Medicine; ATTEND Family Medicine
DX: N17.9 Acute kidney failure, unspecified (principal); S82.092A Other fracture of left patella, initial encounter for closed fracture; E86.0 Dehydration; R74.01 Elevation of levels of liver transaminase levels; I10 Essential (primary) hypertension; E78.5 Hyperlipidemia, unspecified; J44.9 Chronic obstructive pulmonary disease, unspecified; R53.1 Weakness; K21.9 Gastro-esophageal reflux disease without esophagitis; M19.90 Unspecified osteoarthritis, unspecified site; G43.909 Migraine, unspecified, not intractable, without status migrainosus; F41.9 Anxiety disorder, unspecified; F32.9 Major depressive disorder, single episode, unspecified; Z96.642 Presence of left artificial hip joint; S42.012A Anterior displaced fracture of sternal end of left clavicle, initial encounter for closed fracture; F17.210 Nicotine dependence, cigarettes, uncomplicated; W19.XXXA Unspecified fall, initial encounter; Z20.822 Contact with and (suspected) exposure to COVID-19; Y92.009 Unspecified place in unspecified non-institutional (private) residence as the place of occurrence of the external cause; Z90.49 Acquired absence of other specified parts of digestive tract; Z90.710 Acquired absence of both cervix and uterus; Z98.890 Other specified postprocedural states; Z88.5 Allergy status to narcotic agent; Z88.8 Allergy status to other drugs, medicaments and biological substances
CPT/HCPCS: 36415; 70450; 71250; 72125; 74177; 80053; 80307; 81001; 82550; 84484; 85025; 87635; 93005; 94664; 96374; J1650; J3010; U0003; U0005

== ENCOUNTER 2021-04-11 13:40 | Inpatient (IN) | payer MEDICARE ==
[2021-04-11] MEDS ORDERED: Polyethylene Glycol 3350 17 GM Packet PO PRN (14:55)
[2021-04-11] MEDS ORDERED: SUMAtriptan Succinate 6 MG/0.5 ML VIAL SC PRN (14:56)
[2021-04-11] MEDS: Acetaminophen/Codeine 30-300mg Tablet PO PRN (16:31)
[2021-04-11] MEDS: Mometasone/Formoterol 200/5 60 PUFF INH SCH (20:20)
[2021-04-11] MEDS: Enoxaparin Sodium 40 MG/0.4 ML SYRINGE SC SCH (20:21)
[2021-04-11] MEDS: Nicotine 14 MG PATCH TOP SCH (20:21)
[2021-04-11] MEDS: Rosuvastatin 10 MG TAB PO SCH (20:22)
[2021-04-11] MEDS: Gabapentin 100 MG CAP PO SCH (20:22)
[2021-04-11] MEDS: clonazePAM 0.5 MG TAB PO SCH (20:22)
[2021-04-12] MEDS: Acetaminophen/Codeine 30-300mg Tablet PO PRN ×3 (00:30→16:49)
[2021-04-12] MEDS: Gabapentin 100 MG CAP PO SCH ×2 (08:25→20:31)
[2021-04-12] MEDS: CeleCOXIB 100 MG CAP PO SCH (08:26)
[2021-04-12] MEDS: clonazePAM 0.5 MG TAB PO SCH ×2 (08:26→20:33)
[2021-04-12] MEDS: Cholecalciferol 1,000 UNITS (25 MCG) TAB PO SCH (08:28)
[2021-04-12] MEDS: Furosemide 20 MG TAB PO SCH (08:28)
[2021-04-12] MEDS: Potassium Chloride 20 MEQ TAB PO SCH (08:28)
[2021-04-12] MEDS: Ascorbic Acid 500 mg Chewable Tablet PO SCH (08:28)
[2021-04-12] MEDS ORDERED: Lisinopril 20 MG TAB PO SCH (09:00)
[2021-04-12] MEDS: Mometasone/Formoterol 200/5 60 PUFF INH SCH ×2 (09:05→20:34)
[2021-04-12] MEDS ORDERED: Loratadine 10 MG TAB PO SCH (13:00)
[2021-04-12] MEDS ORDERED: DULoxetine 30 MG CAP PO SCH (13:00)
[2021-04-12] MEDS: Enoxaparin Sodium 40 MG/0.4 ML SYRINGE SC SCH (20:31)
[2021-04-12] MEDS: Nicotine 14 MG PATCH TOP SCH (20:31)
[2021-04-12] MEDS: tiZANidine HCl 4 MG TAB PO PRN (20:33)
[2021-04-12] MEDS: Rosuvastatin 10 MG TAB PO SCH (20:33)
[2021-04-13] MEDS: Acetaminophen/Codeine 30-300mg Tablet PO PRN ×2 (04:11→20:40)
[2021-04-13 04:53] LABS: Platelet Count 204 thou/uL (130-400)
[2021-04-13 05:47] LABS: Calc. Creatinine Clearance 84 mL/min (70-130)
[2021-04-13] MEDS: Gabapentin 100 MG CAP PO SCH ×2 (08:19→20:34)
[2021-04-13] MEDS: CeleCOXIB 100 MG CAP PO SCH (08:20)
[2021-04-13] MEDS: Ascorbic Acid 500 mg Chewable Tablet PO SCH (08:20)
[2021-04-13] MEDS: DULoxetine 30 MG CAP PO SCH (08:21)
[2021-04-13] MEDS: Lisinopril 20 MG TAB PO SCH (08:22)
[2021-04-13] MEDS: clonazePAM 0.5 MG TAB PO SCH ×2 (08:22→20:33)
[2021-04-13] MEDS: Cholecalciferol 1,000 UNITS (25 MCG) TAB PO SCH (08:22)
[2021-04-13] MEDS: Potassium Chloride 20 MEQ TAB PO SCH (08:23)
[2021-04-13] MEDS: Furosemide 20 MG TAB PO SCH (08:23)
[2021-04-13] MEDS: Loratadine 10 MG TAB PO SCH (08:27)
[2021-04-13] MEDS: Mometasone/Formoterol 200/5 60 PUFF INH SCH ×2 (08:28→20:36)
[2021-04-13] MEDS ORDERED: SUMAtriptan Succinate 6 MG/0.5 ML VIAL ONE (15:00)
[2021-04-13] MEDS: Enoxaparin Sodium 40 MG/0.4 ML SYRINGE SC SCH (20:30)
[2021-04-13] MEDS: Nicotine 14 MG PATCH TOP SCH (20:33)
[2021-04-13] MEDS: Rosuvastatin 10 MG TAB PO SCH (20:33)
[2021-04-14] MEDS: Acetaminophen/Codeine 30-300mg Tablet PO PRN ×3 (04:08→20:53)
[2021-04-14] MEDS: SUMAtriptan Succinate 25 MG TAB PO PRN ×2 (04:10→16:54)
[2021-04-14] MEDS: Ascorbic Acid 500 mg Chewable Tablet PO SCH (09:22)
[2021-04-14] MEDS: Gabapentin 100 MG CAP PO SCH ×2 (09:22→20:54)
[2021-04-14] MEDS: Loratadine 10 MG TAB PO SCH (09:23)
[2021-04-14] MEDS: CeleCOXIB 100 MG CAP PO SCH (09:23)
[2021-04-14] MEDS: Potassium Chloride 20 MEQ TAB PO SCH (09:23)
[2021-04-14] MEDS: DULoxetine 30 MG CAP PO SCH (09:23)
[2021-04-14] MEDS: Lisinopril 20 MG TAB PO SCH (09:24)
[2021-04-14] MEDS: Cholecalciferol 1,000 UNITS (25 MCG) TAB PO SCH (09:24)
[2021-04-14] MEDS: clonazePAM 0.5 MG TAB PO SCH ×2 (09:24→20:54)
[2021-04-14] MEDS: Furosemide 20 MG TAB PO SCH (09:24)
[2021-04-14] MEDS: Ibuprofen 600 MG TAB PO PRN (09:33)
[2021-04-14] MEDS: Mometasone/Formoterol 200/5 60 PUFF INH SCH ×2 (09:34→20:57)
[2021-04-14] MEDS: Rosuvastatin 10 MG TAB PO SCH (20:53)
[2021-04-14] MEDS: Enoxaparin Sodium 40 MG/0.4 ML SYRINGE SC SCH (20:54)
[2021-04-14] MEDS: Nicotine 14 MG PATCH TOP SCH (20:55)
[2021-04-15] MEDS: Ibuprofen 600 MG TAB PO PRN (03:33)
[2021-04-15 06:17] LABS: Hemoglobin 12.8 g/dL (12.0-16.0); Platelet Count 209 thou/uL (130-400)
[2021-04-15] MEDS ORDERED: clonazePAM 0.5 MG TAB PO SCH (08:45)
[2021-04-15] MEDS: Acetaminophen/Codeine 30-300mg Tablet PO PRN ×2 (09:16→20:27)
[2021-04-15] MEDS: Ascorbic Acid 500 mg Chewable Tablet PO SCH (09:17)
[2021-04-15] MEDS: Cholecalciferol 1,000 UNITS (25 MCG) TAB PO SCH (09:18)
[2021-04-15] MEDS: Lisinopril 20 MG TAB PO SCH (09:18)
[2021-04-15] MEDS: Potassium Chloride 20 MEQ TAB PO SCH (09:18)
[2021-04-15] MEDS: Furosemide 20 MG TAB PO SCH (09:18)
[2021-04-15] MEDS: Gabapentin 100 MG CAP PO SCH ×2 (09:19→20:31)
[2021-04-15] MEDS: DULoxetine 30 MG CAP PO SCH (09:20)
[2021-04-15] MEDS: Loratadine 10 MG TAB PO SCH (09:20)
[2021-04-15] MEDS: CeleCOXIB 100 MG CAP PO SCH (09:20)
[2021-04-15] MEDS: clonazePAM 0.5 MG TAB PO SCH ×2 (09:21→20:33)
[2021-04-15] MEDS: Mometasone/Formoterol 200/5 60 PUFF INH SCH ×2 (09:21→20:35)
[2021-04-15] MEDS: Nicotine 14 MG PATCH TOP SCH (20:28)
[2021-04-15] MEDS: Enoxaparin Sodium 40 MG/0.4 ML SYRINGE SC SCH (20:30)
[2021-04-15] MEDS: SUMAtriptan Succinate 25 MG TAB PO PRN (20:34)
[2021-04-15] MEDS: Rosuvastatin 10 MG TAB PO SCH (20:34)
[2021-04-16 06:07] VITALS: BMI 24.4
[2021-04-16] MEDS: Acetaminophen/Codeine 30-300mg Tablet PO PRN ×3 (06:11→21:57)
[2021-04-16] MEDS: SUMAtriptan Succinate 25 MG TAB PO PRN ×2 (06:12→14:45)
[2021-04-16] MEDS: Gabapentin 100 MG CAP PO SCH ×2 (08:31→21:56)
[2021-04-16] MEDS: Potassium Chloride 20 MEQ TAB PO SCH (08:32)
[2021-04-16] MEDS: clonazePAM 0.5 MG TAB PO SCH ×2 (08:32→21:00)
[2021-04-16] MEDS: CeleCOXIB 100 MG CAP PO SCH (08:32)
[2021-04-16] MEDS: Ascorbic Acid 500 mg Chewable Tablet PO SCH (08:33)
[2021-04-16] MEDS: Furosemide 20 MG TAB PO SCH (08:33)
[2021-04-16] MEDS: Lisinopril 20 MG TAB PO SCH (08:33)
[2021-04-16] MEDS: Cholecalciferol 1,000 UNITS (25 MCG) TAB PO SCH (08:33)
[2021-04-16] MEDS: Loratadine 10 MG TAB PO SCH (08:33)
[2021-04-16] MEDS: DULoxetine 30 MG CAP PO SCH (08:34)
[2021-04-16] MEDS: Mometasone/Formoterol 200/5 60 PUFF INH SCH ×2 (08:35→21:59)
[2021-04-16] MEDS ORDERED: Ondansetron ODT 4 MG TAB PO PRN (13:05)
[2021-04-16] MEDS: Enoxaparin Sodium 40 MG/0.4 ML SYRINGE SC SCH (21:55)
[2021-04-16] MEDS: Nicotine 14 MG PATCH TOP SCH (21:58)
[2021-04-16] MEDS: Rosuvastatin 10 MG TAB PO SCH (21:58)
[2021-04-17] MEDS: Acetaminophen/Codeine 30-300mg Tablet PO PRN ×3 (05:14→22:44)
[2021-04-17 05:31] LABS: Hemoglobin 12.7 g/dL (12.0-16.0); Platelet Count 193 thou/uL (130-400)
[2021-04-17] MEDS: Loratadine 10 MG TAB PO SCH (08:38)
[2021-04-17] MEDS: Potassium Chloride 20 MEQ TAB PO SCH (08:38)
[2021-04-17] MEDS: Cholecalciferol 1,000 UNITS (25 MCG) TAB PO SCH (08:38)
[2021-04-17] MEDS: Gabapentin 100 MG CAP PO SCH ×2 (08:39→20:14)
[2021-04-17] MEDS: Ascorbic Acid 500 mg Chewable Tablet PO SCH (08:39)
[2021-04-17] MEDS: Furosemide 20 MG TAB PO SCH (08:39)
[2021-04-17] MEDS: CeleCOXIB 100 MG CAP PO SCH (08:40)
[2021-04-17] MEDS: clonazePAM 0.5 MG TAB PO SCH ×2 (08:41→20:14)
[2021-04-17] MEDS: DULoxetine 30 MG CAP PO SCH (08:42)
[2021-04-17] MEDS: Lisinopril 20 MG TAB PO SCH (08:42)
[2021-04-17] MEDS: Mometasone/Formoterol 200/5 60 PUFF INH SCH ×2 (08:43→20:17)
[2021-04-17] MEDS: SUMAtriptan Succinate 25 MG TAB PO PRN (14:17)
[2021-04-17] MEDS: Nicotine 14 MG PATCH TOP SCH (20:14)
[2021-04-17] MEDS: Ibuprofen 600 MG TAB PO PRN (20:15)
[2021-04-17] MEDS: Rosuvastatin 10 MG TAB PO SCH (20:16)
[2021-04-17] MEDS: Enoxaparin Sodium 40 MG/0.4 ML SYRINGE SC SCH (20:16)
[2021-04-17] MEDS: tiZANidine HCl 4 MG TAB PO PRN (20:16)
[2021-04-18] MEDS: clonazePAM 0.5 MG TAB PO SCH ×2 (08:19→20:21)
[2021-04-18] MEDS: CeleCOXIB 100 MG CAP PO SCH (08:20)
[2021-04-18] MEDS: Acetaminophen/Codeine 30-300mg Tablet PO PRN ×2 (08:21→20:20)
[2021-04-18] MEDS: Cholecalciferol 1,000 UNITS (25 MCG) TAB PO SCH (08:21)
[2021-04-18] MEDS: Potassium Chloride 20 MEQ TAB PO SCH (08:21)
[2021-04-18] MEDS: DULoxetine 30 MG CAP PO SCH (08:23)
[2021-04-18] MEDS: Gabapentin 100 MG CAP PO SCH ×2 (08:23→20:19)
[2021-04-18] MEDS: Ascorbic Acid 500 mg Chewable Tablet PO SCH (08:24)
[2021-04-18] MEDS: Furosemide 20 MG TAB PO SCH (08:24)
[2021-04-18] MEDS: Loratadine 10 MG TAB PO SCH (08:25)
[2021-04-18] MEDS: Mometasone/Formoterol 200/5 60 PUFF INH SCH ×2 (08:27→20:25)
[2021-04-18] MEDS: Lisinopril 20 MG TAB PO SCH (08:33)
[2021-04-18] MEDS: Rosuvastatin 10 MG TAB PO SCH (20:19)
[2021-04-18] MEDS: Enoxaparin Sodium 40 MG/0.4 ML SYRINGE SC SCH (20:19)
[2021-04-18] MEDS: SUMAtriptan Succinate 25 MG TAB PO PRN (20:20)
[2021-04-18] MEDS: Nicotine 14 MG PATCH TOP SCH (20:21)
[2021-04-19] MEDS: Ibuprofen 600 MG TAB PO PRN ×2 (02:23→20:47)
[2021-04-19 05:38] LABS: Hemoglobin 12.2 g/dL (12.0-16.0); Platelet Count 166 thou/uL (130-400)
[2021-04-19] MEDS: Acetaminophen/Codeine 30-300mg Tablet PO PRN ×3 (08:06→22:43)
[2021-04-19] MEDS: Gabapentin 100 MG CAP PO SCH ×2 (08:08→20:48)
[2021-04-19] MEDS: clonazePAM 0.5 MG TAB PO SCH ×2 (08:08→20:49)
[2021-04-19] MEDS: Lisinopril 20 MG TAB PO SCH (08:09)
[2021-04-19] MEDS: CeleCOXIB 100 MG CAP PO SCH (08:10)
[2021-04-19] MEDS: Potassium Chloride 20 MEQ TAB PO SCH (08:10)
[2021-04-19] MEDS: Cholecalciferol 1,000 UNITS (25 MCG) TAB PO SCH (08:10)
[2021-04-19] MEDS: Loratadine 10 MG TAB PO SCH (08:11)
[2021-04-19] MEDS: Ascorbic Acid 500 mg Chewable Tablet PO SCH (08:11)
[2021-04-19] MEDS: DULoxetine 30 MG CAP PO SCH (08:11)
[2021-04-19] MEDS: Furosemide 20 MG TAB PO SCH (08:11)
[2021-04-19] MEDS: Mometasone/Formoterol 200/5 60 PUFF INH SCH ×2 (08:18→21:19)
[2021-04-19] MEDS: SUMAtriptan Succinate 25 MG TAB PO PRN (14:59)
[2021-04-19] MEDS: Enoxaparin Sodium 40 MG/0.4 ML SYRINGE SC SCH (20:49)
[2021-04-19] MEDS: Nicotine 14 MG PATCH TOP SCH (20:49)
[2021-04-19] MEDS: Rosuvastatin 10 MG TAB PO SCH (20:49)
[2021-04-20] MEDS: Acetaminophen/Codeine 30-300mg Tablet PO PRN ×2 (05:59→13:12)
[2021-04-20 06:09] VITALS: TEMP 97.6
[2021-04-20] MEDS: Lisinopril 20 MG TAB PO SCH (09:56)
[2021-04-20] MEDS: DULoxetine 30 MG CAP PO SCH (09:56)
[2021-04-20] MEDS: CeleCOXIB 100 MG CAP PO SCH (09:57)
[2021-04-20] MEDS: clonazePAM 0.5 MG TAB PO SCH (09:58)
[2021-04-20] MEDS: Gabapentin 100 MG CAP PO SCH (09:58)
[2021-04-20] MEDS: Cholecalciferol 1,000 UNITS (25 MCG) TAB PO SCH (09:59)
[2021-04-20] MEDS: Ascorbic Acid 500 mg Chewable Tablet PO SCH (09:59)
[2021-04-20] MEDS: Loratadine 10 MG TAB PO SCH (10:00)
[2021-04-20] MEDS: Furosemide 20 MG TAB PO SCH (10:00)
[2021-04-20] MEDS: Potassium Chloride 20 MEQ TAB PO SCH (10:00)
[2021-04-20] MEDS: Mometasone/Formoterol 200/5 60 PUFF INH SCH (10:01)
[2021-04-20 10:04] VITALS: BP 130/60
== END 2021-04-20 14:00 | disposition home or self-care (01) | DRG 683 ==
LOC: BURMED 13:40
PROVIDERS: ADMIT Family Medicine; ATTEND Family Medicine
DX: N17.9 Acute kidney failure, unspecified (principal); S82.002A Unspecified fracture of left patella, initial encounter for closed fracture; S42.012A Anterior displaced fracture of sternal end of left clavicle, initial encounter for closed fracture; W18.30XA Fall on same level, unspecified, initial encounter; I10 Essential (primary) hypertension; E78.5 Hyperlipidemia, unspecified; K21.9 Gastro-esophageal reflux disease without esophagitis; J44.9 Chronic obstructive pulmonary disease, unspecified; G43.909 Migraine, unspecified, not intractable, without status migrainosus; F41.9 Anxiety disorder, unspecified; F32.9 Major depressive disorder, single episode, unspecified; Z96.642 Presence of left artificial hip joint; E86.0 Dehydration; N28.9 Disorder of kidney and ureter, unspecified; F17.210 Nicotine dependence, cigarettes, uncomplicated; R53.1 Weakness; Z90.710 Acquired absence of both cervix and uterus; Z90.49 Acquired absence of other specified parts of digestive tract; Z88.6 Allergy status to analgesic agent
CPT/HCPCS: 36415; 82565; 85014; 85018; 85049; 94664; J1650; J3030

== ENCOUNTER 2021-09-09 11:16 | Outpatient (CLI) | payer MEDICARE | END 2021-09-09 11:17 | disposition home or self-care (01) | LOC: BURRAD 11:16 | PROVIDERS: ATTEND Nurse Practitioner Family | DX: R07.9 Chest pain, unspecified (principal) | CPT/HCPCS: 71046 ==

== ENCOUNTER 2022-02-17 02:21 | Emergency (ER) | payer OTHER ==
[2022-02-17] MEDS ORDERED: Iopamidol 370 76% 100 ML VIAL FS ONE (02:22)
[2022-02-17] MEDS ORDERED: Ondansetron PF 4 MG/2 ML Vial ONE (03:10)
[2022-02-17] MEDS ORDERED: Famotidine In NaCl 20 mg/50 ml Premix Bag ONE (03:10)
[2022-02-17 03:29] LABS: Bilirubin Small (Negative); Blood, Urine Negative (Negative); Clarity Clear (Clear); Glucose, Urine (Dipstick) Negative (Negative); Ketone, Urine 15 mg/dL (Negative); Leukocyte Trace (Negative); Nitrite Negative (Negative); Protein, Urine (Dipstick) Negative (Neg-Trace); Specific Gravity, Urine 1.015 (1.005-1.030); Urobilinogen 0.2 mg/dL (Less than 2); pH, Urine 5.5 (5.0-9.0)
[2022-02-17 03:33] LABS: Bacteria/HPF 1+ HPF (None Seen); RBC/HPF 0-3 HPF (0-3); Squamous Epithelial 0-3 HPF (0-3); WBC/HPF 0-3 HPF (0-3)
[2022-02-17 03:35] LABS: #Basophils 0.2 thou/uL (0.0-0.2); #Lymphocytes 1.5 thou/uL (1.20-3.40); #Monocytes 1.4 thou/uL (0.11-0.59); #Neutrophils 12.9 thou/uL (1.40-6.50); %Basophils 1.3 % (0.0-1.0); %Eosinophils 0.1 % (0.0-10.0); %Lymphocytes 9.2 % (21.0-51.0); %Monocytes 8.4 % (0.0-10.0); %Neutrophils 81.1 % (42.0-75.0); Mean Corpuscular HGB CONC 34.8 g/dL (32.0-36.0); Mean Corpuscular Hemoglobin 34.2 pg (27.0-31.0); Mean Corpuscular Volume 98.3 fL (78.0-98.0); Mean Platelet Volume 11.4 fL (7.4-10.4); Platelet Count 246 thou/uL (130-400); RBC Distribution Width 13.5 % (11.5-14.5); Red Blood Cell (RBC) Count 4.37 mill/uL (4.20-5.40)
[2022-02-17 03:36] LABS: Platelet Morphology Comment Appears Adequate; RBC Morphology Normal
[2022-02-17 03:46] LABS: ALT (SGPT) 132 U/L (8-55); AST (SGOT) 54 U/L (5-34); Albumin 3.6 g/dL (3.4-4.8); Alkaline Phosphatase 332 U/L (40-110); Anion Gap 15 mmol/L (10-20); BUN (Urea Nitrogen) 21 mg/dL (9.8-20.1); Bilirubin, Total 0.4 mg/dL (0.2-1.2); Calc. Creatinine Clearance 0 mL/min (70-130); Calcium 9.3 mg/dL (7.8-10.44); Carbon Dioxide 24 mmol/L (23-31); Chloride 100 mmol/L (98-107); Globulin 2.7 g/dL (2.4-3.5); Glucose 126 mg/dL (83-110); Lipase 35 U/L (8-78); Potassium 4.1 mmol/L (3.5-5.1); Protein, Total 6.3 g/dL (5.8-8.1); Sodium 135 mmol/L (136-145)
== END 2022-02-17 05:37 | disposition home or self-care (01) ==
LOC: BURERS 02:21
DX: K52.9 Noninfective gastroenteritis and colitis, unspecified (principal); E03.9 Hypothyroidism, unspecified; E78.5 Hyperlipidemia, unspecified; I10 Essential (primary) hypertension; M19.90 Unspecified osteoarthritis, unspecified site; J44.9 Chronic obstructive pulmonary disease, unspecified; F17.210 Nicotine dependence, cigarettes, uncomplicated
CPT/HCPCS: 36415; 74177; 80053; 81003; 81015; 83605; 83690; 84484; 85025; 93005; 96361; 96374; 96375; J2405; Q9967

== ENCOUNTER 2022-02-21 17:28 | Emergency (ER) | payer MEDICARE, OTHER ==
[2022-02-21] MEDS ORDERED: Famotidine In NaCl 20 mg/50 ml Premix Bag ONE (18:14)
[2022-02-21] MEDS ORDERED: Glycopyrrolate 0.4 MG/ 2 ML VIAL ONE (18:14)
[2022-02-21] MEDS ORDERED: Ondansetron PF 4 MG/2 ML Vial ONE ×2 (18:14→20:32)
[2022-02-21 18:24] LABS: #Monocytes 0.6 thou/uL (0.11-0.59); #Neutrophils 4.6 thou/uL (1.40-6.50); %Basophils 0.8 % (0.0-1.0); %Eosinophils 0.5 % (0.0-10.0); %Lymphocytes 15.7 % (21.0-51.0); %Neutrophils 74.1 % (42.0-75.0); Hemoglobin 13.8 g/dL (12.0-16.0); Mean Corpuscular HGB CONC 32.9 g/dL (32.0-36.0); Mean Corpuscular Hemoglobin 33.6 pg (27.0-31.0); Mean Platelet Volume 10.8 fL (7.4-10.4); Platelet Count 212 thou/uL (130-400); RBC Distribution Width 14.1 % (11.5-14.5); White Blood Cell (WBC) Count 6.2 thou/uL (4.8-10.8)
[2022-02-21 18:36] LABS: ALT (SGPT) 59 U/L (8-55); AST (SGOT) 28 U/L (5-34); Albumin 3.5 g/dL (3.4-4.8); Alkaline Phosphatase 255 U/L (40-110); Anion Gap 20 mmol/L (10-20); BUN (Urea Nitrogen) 12 mg/dL (9.8-20.1); Bilirubin, Total 0.3 mg/dL (0.2-1.2); Calc. Creatinine Clearance 0 mL/min (70-130); Calcium 8.7 mg/dL (7.8-10.44); Carbon Dioxide 21 mmol/L (23-31); Chloride 106 mmol/L (98-107); Globulin 2.8 g/dL (2.4-3.5); Glucose 109 mg/dL (83-110); Lipase 59 U/L (8-78); Potassium 3.8 mmol/L (3.5-5.1); Protein, Total 6.3 g/dL (5.8-8.1); Sodium 143 mmol/L (136-145)
[2022-02-21] MEDS ORDERED: Promethazine HCl 25 MG/ML VIAL ONE (21:23)
[2022-02-21 21:32] LABS: Bilirubin Negative (Negative); Blood, Urine Negative (Negative); Clarity Clear (Clear); Glucose, Urine (Dipstick) Negative (Negative); Ketone, Urine Negative (Negative); Leukocyte Small (Negative); Nitrite Negative (Negative); Protein, Urine (Dipstick) Negative (Neg-Trace); Urobilinogen 0.2 mg/dL (Less than 2)
[2022-02-21 21:40] LABS: Bacteria/HPF 1+ HPF (None Seen); Squamous Epithelial 0-3 HPF (0-3); WBC/HPF 0-3 HPF (0-3)
== END 2022-02-21 21:54 | disposition home or self-care (01) ==
LOC: BURERS 17:28 → EDSEX 17:28 → BURERS 21:54
DX: A08.4 Viral intestinal infection, unspecified (principal); E78.5 Hyperlipidemia, unspecified; I10 Essential (primary) hypertension; M19.90 Unspecified osteoarthritis, unspecified site; J44.9 Chronic obstructive pulmonary disease, unspecified; F17.210 Nicotine dependence, cigarettes, uncomplicated
CPT/HCPCS: 36415; 80053; 81003; 81015; 83690; 84484; 85025; 96365; 96375; 96376; J2405; J2550

== ENCOUNTER 2022-02-25 20:30 | Emergency (ER) | payer MEDICARE, OTHER ==
[2022-02-25] MEDS ORDERED: Pantoprazole 40 MG VIAL ONE (21:51)
[2022-02-25] MEDS ORDERED: Dicyclomine 20 MG/2 ML VIAL ONE (21:52)
[2022-02-25] MEDS ORDERED: Ondansetron PF 4 MG/2 ML Vial ONE (21:52)
[2022-02-25] MEDS ORDERED: Lidocaine Viscous Sol 2% 15 ml UD Cup ONE (23:57)
[2022-02-25] MEDS ORDERED: Mag-Al Plus 1200 MG/1200 MG/120 MG/30 ML UDCUP ONE (23:58)
[2022-02-26] MEDS ORDERED: Sucralfate 1 GM/10 ML UDCUP PO SCH (00:15)
== END 2022-02-26 00:40 | disposition short-term general hospital (02) ==
LOC: BURERS 20:30
DX: R11.2 Nausea with vomiting, unspecified (principal); R79.89 Other specified abnormal findings of blood chemistry; E03.9 Hypothyroidism, unspecified; E78.5 Hyperlipidemia, unspecified; I10 Essential (primary) hypertension; M19.90 Unspecified osteoarthritis, unspecified site; J44.9 Chronic obstructive pulmonary disease, unspecified; F17.210 Nicotine dependence, cigarettes, uncomplicated; Z87.19 Personal history of other diseases of the digestive system; Z79.899 Other long term (current) drug therapy
CPT/HCPCS: 71045; 74177; 80053; 81003; 83605; 83690; 84443; 84484; 85025; 93005; 96372; 96374; 96375; C9113; J0500; J2405

== ENCOUNTER 2022-03-15 16:49 | Emergency (ER) | payer MEDICARE ==
[2022-03-15 17:48] LABS: #Eosinphils 0.1 thou/uL (0.0-0.7); #Monocytes 0.6 thou/uL (0.11-0.59); #Neutrophils 1.9 thou/uL (1.40-6.50); %Eosinophils 2.4 % (0.0-10.0); %Lymphocytes 42.9 % (21.0-51.0); %Monocytes 12.3 % (0.0-10.0); %Neutrophils 41.5 % (42.0-75.0); Hemoglobin 11.3 g/dL (12.0-16.0); Mean Corpuscular HGB CONC 33.4 g/dL (32.0-36.0); Mean Corpuscular Hemoglobin 34.7 pg (27.0-31.0); Mean Platelet Volume 9.7 fL (7.4-10.4); Platelet Count 231 thou/uL (130-400); RBC Distribution Width 14.4 % (11.5-14.5); Red Blood Cell (RBC) Count 3.26 mill/uL (4.20-5.40); White Blood Cell (WBC) Count 4.7 thou/uL (4.8-10.8)
[2022-03-15 17:59] LABS: ALT (SGPT) 23 U/L (8-55); AST (SGOT) 18 U/L (5-34); Albumin 3.2 g/dL (3.4-4.8); Alkaline Phosphatase 200 U/L (40-110); Anion Gap 15 mmol/L (10-20); BUN (Urea Nitrogen) 16 mg/dL (9.8-20.1); Bilirubin, Total 0.4 mg/dL (0.2-1.2); Calc. Creatinine Clearance 0 mL/min (70-130); Calcium 8.9 mg/dL (7.8-10.44); Carbon Dioxide 22 mmol/L (23-31); Chloride 106 mmol/L (98-107); Globulin 2.7 g/dL (2.4-3.5); Glucose 98 mg/dL (83-110); Lipase 35 U/L (8-78); Potassium 4.5 mmol/L (3.5-5.1); Protein, Total 5.9 g/dL (5.8-8.1); Sodium 138 mmol/L (136-145)
[2022-03-15 18:11] LABS: Bilirubin Negative (Negative); Blood, Urine Negative (Negative); Clarity Clear (Clear); Glucose, Urine (Dipstick) Negative (Negative); Ketone, Urine Negative (Negative); Leukocyte Negative (Negative); Nitrite Negative (Negative); Protein, Urine (Dipstick) Negative (Neg-Trace); Urobilinogen 0.2 mg/dL (Less than 2); pH, Urine 5.5 (5.0-9.0)
[2022-03-15] MEDS ORDERED: HYDROcodone/Acetaminophen 5/325 mg Tablet ONE (18:13)
== END 2022-03-15 21:00 | disposition home or self-care (01) ==
LOC: BURERS 16:49
DX: R10.30 Lower abdominal pain, unspecified (principal); I10 Essential (primary) hypertension; J44.9 Chronic obstructive pulmonary disease, unspecified; E03.9 Hypothyroidism, unspecified; E78.5 Hyperlipidemia, unspecified; M19.90 Unspecified osteoarthritis, unspecified site; F17.210 Nicotine dependence, cigarettes, uncomplicated; Z79.899 Other long term (current) drug therapy
CPT/HCPCS: 36415; 51701; 74176; 80053; 81003; 83605; 83690; 85025

== ENCOUNTER 2022-04-01 17:41 | Emergency (ER) | payer MEDICARE ==
[2022-04-01] MEDS ORDERED: Iopamidol 370 76% 100 ML VIAL FS ONE (17:42)
[2022-04-01] MEDS ORDERED: Ondansetron ODT 4 MG TAB ONE (18:20)
[2022-04-01 18:37] LABS: #Basophils 0.1 thou/uL (0.0-0.2); #Eosinphils 0.1 thou/uL (0.0-0.7); #Lymphocytes 1.8 thou/uL (1.20-3.40); #Monocytes 0.5 thou/uL (0.11-0.59); #Neutrophils 3.6 thou/uL (1.40-6.50); %Eosinophils 1.4 % (0.0-10.0); %Lymphocytes 29.7 % (21.0-51.0); %Monocytes 8.2 % (0.0-10.0); %Neutrophils 59.7 % (42.0-75.0); Anisocytosis SLIGHT = 6-15 cells (100X) (0-5/hpf); Hemoglobin 12.2 g/dL (12.0-16.0); MDiff Complete? YES; Macrocytosis SLIGHT = 6-15 cells (100X) (0-5/hpf); Mean Corpuscular HGB CONC 33.1 g/dL (32.0-36.0); Mean Corpuscular Hemoglobin 34.7 pg (27.0-31.0); Mean Platelet Volume 8.5 fL (7.4-10.4); Ovalocytes SLIGHT = 2-5 cells (100X) (0-1/hpf); Platelet Count 224 thou/uL (130-400); Poikilocytosis SLIGHT = 6-15 cells (100X) (0-5/hpf); RBC Distribution Width 15.4 % (11.5-14.5); Red Blood Cell (RBC) Count 3.51 mill/uL (4.20-5.40)
[2022-04-01 18:39] LABS: ALT (SGPT) 34 U/L (8-55); AST (SGOT) 22 U/L (5-34); Albumin 3.7 g/dL (3.4-4.8); Alkaline Phosphatase 208 U/L (40-110); Anion Gap 14 mmol/L (10-20); BUN (Urea Nitrogen) 15 mg/dL (9.8-20.1); Bilirubin, Total 0.4 mg/dL (0.2-1.2); CK (CPK) 49 U/L (29-168); Calc. Creatinine Clearance 0 mL/min (70-130); Calcium 9.1 mg/dL (7.8-10.44); Carbon Dioxide 24 mmol/L (23-31); Chloride 105 mmol/L (98-107); Globulin 2.8 g/dL (2.4-3.5); Glucose 92 mg/dL (83-110); Potassium 4.1 mmol/L (3.5-5.1); Protein, Total 6.5 g/dL (5.8-8.1); Sodium 139 mmol/L (136-145)
== END 2022-04-01 19:47 | disposition home or self-care (01) ==
LOC: BURERS 17:41
DX: M79.89 Other specified soft tissue disorders (principal); R79.1 Abnormal coagulation profile; J43.9 Emphysema, unspecified; E03.9 Hypothyroidism, unspecified; E78.5 Hyperlipidemia, unspecified; I10 Essential (primary) hypertension; G43.909 Migraine, unspecified, not intractable, without status migrainosus; F17.210 Nicotine dependence, cigarettes, uncomplicated; Z79.899 Other long term (current) drug therapy
CPT/HCPCS: 36415; 71045; 71275; 80053; 82550; 84484; 85025; 85379; 93005; Q0162; Q9967

== ENCOUNTER 2022-08-15 07:39 | Emergency (ER) | payer MEDICARE ==
[2022-08-15 08:09] LABS: #Eosinphils 0.1 thou/uL (0.0-0.7); #Lymphocytes 1.4 thou/uL (1.20-3.40); #Monocytes 0.6 thou/uL (0.11-0.59); #Neutrophils 4.6 thou/uL (1.40-6.50); %Basophils 0.7 % (0.0-1.0); %Eosinophils 1.1 % (0.0-10.0); %Lymphocytes 20.6 % (21.0-51.0); %Monocytes 9.3 % (0.0-10.0); %Neutrophils 68.2 % (42.0-75.0); Hemoglobin 12.9 g/dL (12.0-16.0); Mean Corpuscular HGB CONC 32.9 g/dL (32.0-36.0); Mean Corpuscular Hemoglobin 33.7 pg (27.0-31.0); Mean Platelet Volume 9.4 fL (7.4-10.4); Platelet Count 184 thou/uL (130-400); RBC Distribution Width 14.4 % (11.5-14.5); Red Blood Cell (RBC) Count 3.83 mill/uL (4.20-5.40); White Blood Cell (WBC) Count 6.8 thou/uL (4.8-10.8)
[2022-08-15 08:25] LABS: ALT (SGPT) 40 U/L (8-55); AST (SGOT) 36 U/L (5-34); Albumin 3.7 g/dL (3.4-4.8); Alkaline Phosphatase 243 U/L (40-110); Anion Gap 18 mmol/L (10-20); BUN (Urea Nitrogen) 22 mg/dL (9.8-20.1); Bilirubin, Total 0.5 mg/dL (0.2-1.2); Calc. Creatinine Clearance 0 mL/min (70-130); Calcium 9.8 mg/dL (7.8-10.44); Carbon Dioxide 23 mmol/L (23-31); Chloride 108 mmol/L (98-107); Estimated GFR 82; Glucose 92 mg/dL (83-110); Potassium 4.2 mmol/L (3.5-5.1); Protein, Total 6.7 g/dL (5.8-8.1); Sodium 145 mmol/L (136-145)
[2022-08-15] MEDS ORDERED: Ondansetron PF 4 MG/2 ML Vial ONE (08:53)
[2022-08-15] MEDS ORDERED: Pantoprazole 40 MG VIAL ONE (08:53)
[2022-08-15 09:35] LABS: Bilirubin Negative (Negative); Blood, Urine Trace (Negative); Clarity Clear (Clear); Glucose, Urine (Dipstick) Negative (Negative); Ketone, Urine 15 mg/dL (Negative); Leukocyte Negative (Negative); Nitrite Negative (Negative); Protein, Urine (Dipstick) Negative (Neg-Trace); Specific Gravity, Urine 1.015 (1.005-1.030); Urobilinogen 0.2 mg/dL (Less than 2); pH, Urine 5.5 (5.0-9.0)
[2022-08-15 09:49] LABS: RBC/HPF 0-3 HPF (0-3); Squamous Epithelial 0-3 HPF (0-3); WBC/HPF 0-3 HPF (0-3)
[2022-08-15 09:50] LABS: Bacteria/HPF Rare-Few HPF (None Seen)
== END 2022-08-15 09:28 | disposition home or self-care (01) ==
LOC: BURERS 07:39
DX: R11.0 Nausea (principal); F43.0 Acute stress reaction; I10 Essential (primary) hypertension; E03.9 Hypothyroidism, unspecified; E78.5 Hyperlipidemia, unspecified; M19.90 Unspecified osteoarthritis, unspecified site; J44.9 Chronic obstructive pulmonary disease, unspecified; F17.210 Nicotine dependence, cigarettes, uncomplicated; Z79.899 Other long term (current) drug therapy
CPT/HCPCS: 36415; 71045; 80053; 81003; 81015; 83605; 84484; 85025; 93005; 96374; C9113; J2405

== ENCOUNTER 2022-09-29 21:23 | Inpatient (IN) | payer MEDICARE ==
[2022-09-29] MEDS ORDERED: Melatonin 3 MG TAB PO PRN (22:40)
[2022-09-29] MEDS ORDERED: chlordiazePOXIDE HCl 25 MG CAP PO SCH (23:15)
[2022-09-29] MEDS ORDERED: Amoxicillin/Potassium Clav 875 MG TAB PO SCH (23:15)
[2022-09-29] MEDS ORDERED: Apixaban 5 MG TAB PO SCH (23:15)
[2022-09-29] MEDS ORDERED: Mometasone/Formoterol 200/5 60 PUFF INH SCH (23:15)
[2022-09-29] MEDS ORDERED: Atorvastatin Calcium 40 MG TAB PO SCH (23:15)
[2022-09-29] MEDS: Acetaminophen/Codeine 30-300mg Tablet PO PRN (23:32)
[2022-09-30 02:19] VITALS: BMI 21.9
[2022-09-30] MEDS ORDERED: Non-Formulary Item 1 EACH (Acetaminophen With Codeine [Acetaminophen/Codeine #4] 300 MG/6 PO PRN (06:53)
[2022-09-30] MEDS ORDERED: D5W AA 4.25% IV SCH (07:00)
[2022-09-30] MEDS ORDERED: LYTES IV SCH (07:00)
[2022-09-30] MEDS ORDERED: Non-Formulary Item 1 EACH (Budesonide-Formoterol [Symbicort 160-4.5] 160 MG/4.5 MG Aer) INH SCH (07:00)
[2022-09-30] MEDS ORDERED: Acetaminophen/Codeine 30-300mg Tablet PO PRN (07:18)
[2022-09-30] MEDS ORDERED: HYDROcodone/Acetaminophen 5/325 mg Tablet PO PRN ×2 (07:30)
[2022-09-30] MEDS ORDERED: Loperamide HCl 2 MG CAP PO PRN ×2 (07:30)
[2022-09-30] MEDS ORDERED: Mometasone/Formoterol 200/5 60 PUFF INH SCH ×2 (09:00→19:00)
[2022-09-30] MEDS ORDERED: Apixaban 5 MG TAB PO SCH (09:00)
[2022-09-30] MEDS ORDERED: Ascorbic Acid 500 mg Chewable Tablet PO SCH (09:00)
[2022-09-30] MEDS ORDERED: chlordiazePOXIDE HCl 25 MG CAP PO SCH (09:00)
[2022-09-30] MEDS ORDERED: Amoxicillin/Potassium Clav 875 MG TAB PO SCH (09:00)
[2022-09-30] MEDS ORDERED: DILTIAZEM HCL 240 MG PO SCH (09:00)
[2022-09-30] MEDS: Ascorbic Acid 500 mg Chewable Tablet PO SCH (09:11)
[2022-09-30] MEDS: DULoxetine 30 MG CAP PO SCH (09:11)
[2022-09-30] MEDS: Apixaban 5 MG TAB PO SCH ×2 (09:12→21:41)
[2022-09-30] MEDS: Nicotine 21 MG PATCH TD SCH (09:12)
[2022-09-30] MEDS: Cholecalciferol 1,000 UNITS (25 MCG) TAB PO SCH (09:12)
[2022-09-30] MEDS: chlordiazePOXIDE HCl 25 MG CAP PO SCH ×3 (09:12→21:41)
[2022-09-30] MEDS: Acetaminophen/Codeine 30-300mg Tablet PO PRN ×3 (09:24→21:46)
[2022-09-30] MEDS: Nystatin 500,000 UNITS/5 ML UDCUP SSW SCH ×3 (12:37→21:47)
[2022-09-30] MEDS: Amino Acids 4.25 %/Dextrose 5% 2,000 ML IV SCH (12:37)
[2022-09-30] MEDS: Lidocaine 5% Patch TD SCH (17:21)
[2022-09-30] MEDS ORDERED: Atorvastatin Calcium 40 MG TAB PO SCH (21:00)
[2022-09-30] MEDS: Atorvastatin Calcium 40 MG TAB PO SCH (21:41)
[2022-09-30] MEDS: Sodium Chloride 1 GM TAB PO SCH (21:41)
[2022-09-30] MEDS: Melatonin 3 MG TAB PO PRN (21:41)
[2022-09-30] MEDS: Mometasone/Formoterol 200/5 60 PUFF INH SCH (21:50)
[2022-10-01] MEDS: Transdermal Patch Removal TOP SCH (05:40)
[2022-10-01] MEDS: Acetaminophen/Codeine 30-300mg Tablet PO PRN ×3 (07:44→21:31)
[2022-10-01] MEDS: Nicotine 21 MG PATCH TD SCH (09:38)
[2022-10-01] MEDS: chlordiazePOXIDE HCl 25 MG CAP PO SCH ×3 (09:40→21:32)
[2022-10-01] MEDS: Sodium Chloride 1 GM TAB PO SCH ×2 (09:40→21:31)
[2022-10-01] MEDS: Apixaban 5 MG TAB PO SCH ×2 (09:40→21:31)
[2022-10-01] MEDS: Ascorbic Acid 500 mg Chewable Tablet PO SCH (09:40)
[2022-10-01] MEDS: Saccharomyces boulardii 250 MG CAP PO SCH (09:40)
[2022-10-01] MEDS: Cholecalciferol 1,000 UNITS (25 MCG) TAB PO SCH (09:40)
[2022-10-01] MEDS: DULoxetine 30 MG CAP PO SCH (09:40)
[2022-10-01] MEDS: Nystatin 500,000 UNITS/5 ML UDCUP SSW SCH ×4 (09:41→21:32)
[2022-10-01] MEDS: Mometasone/Formoterol 200/5 60 PUFF INH SCH ×2 (09:44→21:55)
[2022-10-01] MEDS: Ondansetron ODT 4 MG TAB SL PRN (11:14)
[2022-10-01] MEDS: Amino Acids 4.25 %/Dextrose 5% 2,000 ML IV SCH (12:12)
[2022-10-01] MEDS: Lidocaine 5% Patch TD SCH (17:25)
[2022-10-01] MEDS: Melatonin 3 MG TAB PO PRN (21:30)
[2022-10-01] MEDS: Atorvastatin Calcium 40 MG TAB PO SCH (21:30)
[2022-10-02] MEDS: Transdermal Patch Removal TOP SCH (05:01)
[2022-10-02 05:56] LABS: ALT (SGPT) 136 U/L (8-55); AST (SGOT) 77 U/L (5-34); Alkaline Phosphatase 452 U/L (40-110); Anion Gap 11 mmol/L (10-20); BUN (Urea Nitrogen) 34 mg/dL (9.8-20.1); Bilirubin, Total 0.3 mg/dL (0.2-1.2); Calc. Creatinine Clearance 67 mL/min (70-130); Calcium 9.5 mg/dL (7.8-10.44); Carbon Dioxide 24 mmol/L (23-31); Chloride 104 mmol/L (98-107); Estimated GFR 94; Globulin 3.1 g/dL (2.4-3.5); Glucose 119 mg/dL (83-110); Potassium 3.9 mmol/L (3.5-5.1); Protein, Total 6.1 g/dL (5.8-8.1); Sodium 135 mmol/L (136-145)
[2022-10-02 06:01] LABS: #Eosinphils 0.1 thou/uL (0.0-0.7); #Lymphocytes 0.8 thou/uL (1.20-3.40); #Monocytes 0.4 thou/uL (0.11-0.59); #Neutrophils 2.3 thou/uL (1.40-6.50); %Lymphocytes 21.9 % (21.0-51.0); %Monocytes 10.8 % (0.0-10.0); %Neutrophils 62.4 % (42.0-75.0); Hemoglobin 8.5 g/dL (12.0-16.0); Mean Corpuscular HGB CONC 33.2 g/dL (32.0-36.0); Mean Corpuscular Hemoglobin 33.6 pg (27.0-31.0); Mean Platelet Volume 8.7 fL (7.4-10.4); Platelet Count 224 thou/uL (130-400); RBC Distribution Width 14.2 % (11.5-14.5); Red Blood Cell (RBC) Count 2.52 mill/uL (4.20-5.40); White Blood Cell (WBC) Count 3.8 thou/uL (4.8-10.8)
[2022-10-02] MEDS: Fioricet 325/50/40 mg Tablet PO PRN (06:02)
[2022-10-02] MEDS: Ascorbic Acid 500 mg Chewable Tablet PO SCH (08:09)
[2022-10-02] MEDS: Apixaban 5 MG TAB PO SCH ×2 (08:09→21:35)
[2022-10-02] MEDS: DULoxetine 30 MG CAP PO SCH (08:09)
[2022-10-02] MEDS: Sodium Chloride 1 GM TAB PO SCH ×2 (08:10→21:36)
[2022-10-02] MEDS: Saccharomyces boulardii 250 MG CAP PO SCH (08:10)
[2022-10-02] MEDS: Cholecalciferol 1,000 UNITS (25 MCG) TAB PO SCH (08:10)
[2022-10-02] MEDS: chlordiazePOXIDE HCl 25 MG CAP PO SCH ×3 (08:10→21:36)
[2022-10-02] MEDS: Nicotine 21 MG PATCH TD SCH (08:11)
[2022-10-02] MEDS: Mometasone/Formoterol 200/5 60 PUFF INH SCH ×2 (08:11→21:37)
[2022-10-02] MEDS: Nystatin 500,000 UNITS/5 ML UDCUP SSW SCH ×4 (08:15→21:39)
[2022-10-02] MEDS: Amino Acids 4.25 %/Dextrose 5% 2,000 ML IV SCH (11:46)
[2022-10-02] MEDS: Acetaminophen/Codeine 30-300mg Tablet PO PRN ×2 (12:05→21:35)
[2022-10-02] MEDS: Lidocaine 5% Patch TD SCH (16:42)
[2022-10-02] MEDS: Atorvastatin Calcium 40 MG TAB PO SCH (21:36)
[2022-10-03] MEDS: Transdermal Patch Removal TOP SCH (04:17)
[2022-10-03] MEDS: Fioricet 325/50/40 mg Tablet PO PRN ×2 (06:55→22:08)
[2022-10-03] MEDS: Saccharomyces boulardii 250 MG CAP PO SCH (08:25)
[2022-10-03] MEDS: Nystatin 500,000 UNITS/5 ML UDCUP SSW SCH ×4 (08:25→21:57)
[2022-10-03] MEDS: chlordiazePOXIDE HCl 25 MG CAP PO SCH ×3 (08:27→21:57)
[2022-10-03] MEDS: Ascorbic Acid 500 mg Chewable Tablet PO SCH (08:27)
[2022-10-03] MEDS: DULoxetine 30 MG CAP PO SCH (08:27)
[2022-10-03] MEDS: Sodium Chloride 1 GM TAB PO SCH ×2 (08:27→21:57)
[2022-10-03] MEDS: Apixaban 5 MG TAB PO SCH ×2 (08:27→21:57)
[2022-10-03] MEDS: Cholecalciferol 1,000 UNITS (25 MCG) TAB PO SCH (08:27)
[2022-10-03] MEDS: Nicotine 21 MG PATCH TD SCH (08:41)
[2022-10-03] MEDS: Mometasone/Formoterol 200/5 60 PUFF INH SCH ×2 (08:41→21:58)
[2022-10-03] MEDS ORDERED: FLU VACC QS2022-23(65YR UP)/PF 240 MCG/0.7 ML SYRINGE IM ONE (09:00)
[2022-10-03] MEDS: Acetaminophen/Codeine 30-300mg Tablet PO PRN ×2 (10:28→16:44)
[2022-10-03] MEDS: Amino Acids 4.25 %/Dextrose 5% 2,000 ML IV SCH (12:57)
[2022-10-03] MEDS: Lidocaine 5% Patch TD SCH (16:44)
[2022-10-03] MEDS: Ondansetron PF 4 MG/2 ML Vial SLOW IVP PRN (18:04)
[2022-10-03] MEDS: Atorvastatin Calcium 40 MG TAB PO SCH (21:57)
[2022-10-04] MEDS: Transdermal Patch Removal TOP SCH (04:07)
[2022-10-04] MEDS: Acetaminophen/Codeine 30-300mg Tablet PO PRN ×3 (04:57→22:07)
[2022-10-04] MEDS: Saccharomyces boulardii 250 MG CAP PO SCH (08:54)
[2022-10-04] MEDS: DULoxetine 30 MG CAP PO SCH (08:54)
[2022-10-04] MEDS: chlordiazePOXIDE HCl 25 MG CAP PO SCH ×3 (08:54→20:32)
[2022-10-04] MEDS: Sodium Chloride 1 GM TAB PO SCH ×2 (08:55→20:33)
[2022-10-04] MEDS: Nystatin 500,000 UNITS/5 ML UDCUP SSW SCH ×4 (08:55→20:32)
[2022-10-04] MEDS: Cholecalciferol 1,000 UNITS (25 MCG) TAB PO SCH (08:55)
[2022-10-04] MEDS: Ascorbic Acid 500 mg Chewable Tablet PO SCH (08:55)
[2022-10-04] MEDS: Apixaban 5 MG TAB PO SCH ×2 (08:55→20:32)
[2022-10-04] MEDS: Mometasone/Formoterol 200/5 60 PUFF INH SCH ×2 (09:11→20:33)
[2022-10-04] MEDS: Nicotine 21 MG PATCH TD SCH (09:11)
[2022-10-04] MEDS: Amino Acids 4.25 %/Dextrose 5% 2,000 ML IV SCH (11:11)
[2022-10-04] MEDS: Fioricet 325/50/40 mg Tablet PO PRN (15:43)
[2022-10-04] MEDS: Lidocaine 5% Patch TD SCH (16:06)
[2022-10-04] MEDS: Melatonin 3 MG TAB PO PRN (20:32)
[2022-10-04] MEDS: Atorvastatin Calcium 40 MG TAB PO SCH (20:33)
[2022-10-04] MEDS: Polyethylene Glycol OPTH DROP 15 ML BOT EA EYE PRN (22:17)
[2022-10-05] MEDS: Fioricet 325/50/40 mg Tablet PO PRN ×2 (04:51→20:27)
[2022-10-05] MEDS: Transdermal Patch Removal TOP SCH (05:18)
[2022-10-05] MEDS: Saccharomyces boulardii 250 MG CAP PO SCH (08:34)
[2022-10-05] MEDS: Nystatin 500,000 UNITS/5 ML UDCUP SSW SCH ×4 (08:34→20:27)
[2022-10-05] MEDS: Nicotine 21 MG PATCH TD SCH (08:34)
[2022-10-05] MEDS: Sodium Chloride 1 GM TAB PO SCH ×2 (08:37→20:27)
[2022-10-05] MEDS: Apixaban 5 MG TAB PO SCH ×2 (08:37→20:27)
[2022-10-05] MEDS: Ascorbic Acid 500 mg Chewable Tablet PO SCH (08:37)
[2022-10-05] MEDS: DULoxetine 30 MG CAP PO SCH (08:37)
[2022-10-05] MEDS: chlordiazePOXIDE HCl 25 MG CAP PO SCH ×3 (08:37→20:27)
[2022-10-05] MEDS: Cholecalciferol 1,000 UNITS (25 MCG) TAB PO SCH (08:37)
[2022-10-05] MEDS: Mometasone/Formoterol 200/5 60 PUFF INH SCH ×2 (08:48→20:36)
[2022-10-05] MEDS: Amino Acids 4.25 %/Dextrose 5% 2,000 ML IV SCH (10:30)
[2022-10-05] MEDS: Bisacodyl 5 MG TAB PO PRN (10:41)
[2022-10-05] MEDS: Ondansetron PF 4 MG/2 ML Vial SLOW IVP PRN (11:54)
[2022-10-05] MEDS: Acetaminophen/Codeine 30-300mg Tablet PO PRN ×2 (12:01→17:57)
[2022-10-05] MEDS: Lidocaine 5% Patch TD SCH (17:48)
[2022-10-05] MEDS: Polyethylene Glycol OPTH DROP 15 ML BOT EA EYE PRN (20:26)
[2022-10-05] MEDS: Atorvastatin Calcium 40 MG TAB PO SCH (20:27)
[2022-10-05] MEDS: Melatonin 3 MG TAB PO PRN (20:27)
[2022-10-05] MEDS: Ondansetron ODT 4 MG TAB SL PRN (22:16)
[2022-10-06] MEDS: Acetaminophen/Codeine 30-300mg Tablet PO PRN ×3 (01:14→20:25)
[2022-10-06] MEDS: Transdermal Patch Removal TOP SCH (05:02)
[2022-10-06] MEDS: Nystatin 500,000 UNITS/5 ML UDCUP SSW SCH ×4 (08:15→20:25)
[2022-10-06] MEDS: Sodium Chloride 1 GM TAB PO SCH ×2 (08:16→20:25)
[2022-10-06] MEDS: Saccharomyces boulardii 250 MG CAP PO SCH (08:16)
[2022-10-06] MEDS: Ascorbic Acid 500 mg Chewable Tablet PO SCH (08:16)
[2022-10-06] MEDS: Apixaban 5 MG TAB PO SCH ×2 (08:16→20:25)
[2022-10-06] MEDS: DULoxetine 30 MG CAP PO SCH (08:16)
[2022-10-06] MEDS: chlordiazePOXIDE HCl 25 MG CAP PO SCH ×3 (08:16→20:25)
[2022-10-06] MEDS: Cholecalciferol 1,000 UNITS (25 MCG) TAB PO SCH (08:16)
[2022-10-06] MEDS: Mometasone/Formoterol 200/5 60 PUFF INH SCH ×2 (08:26→20:26)
[2022-10-06] MEDS: Nicotine 21 MG PATCH TD SCH (08:31)
[2022-10-06] MEDS: Amino Acids 4.25 %/Dextrose 5% 2,000 ML IV SCH (09:11)
[2022-10-06] MEDS: Polyethylene Glycol OPTH DROP 15 ML BOT EA EYE PRN (09:23)
[2022-10-06] MEDS: Lidocaine 5% Patch TD SCH (17:32)
[2022-10-06] MEDS: Acetaminophen 325 MG TAB PO PRN (17:40)
[2022-10-06] MEDS: Atorvastatin Calcium 40 MG TAB PO SCH (20:25)
[2022-10-06] MEDS: Melatonin 3 MG TAB PO PRN ×2 (23:00→23:01)
[2022-10-06] MEDS: Fioricet 325/50/40 mg Tablet PO PRN ×2 (23:00→23:01)
[2022-10-07 05:04] LABS: #Eosinphils 0.1 thou/uL (0.0-0.7); #Monocytes 0.4 thou/uL (0.11-0.59); #Neutrophils 2.1 thou/uL (1.40-6.50); %Basophils 0.9 % (0.0-1.0); %Eosinophils 3.2 % (0.0-10.0); %Lymphocytes 26.5 % (21.0-51.0); %Monocytes 11.5 % (0.0-10.0); %Neutrophils 57.9 % (42.0-75.0); Hemoglobin 9.6 g/dL (12.0-16.0); Mean Corpuscular HGB CONC 33.8 g/dL (32.0-36.0); Mean Corpuscular Hemoglobin 33.8 pg (27.0-31.0); Mean Platelet Volume 8.3 fL (7.4-10.4); Platelet Count 244 thou/uL (130-400); RBC Distribution Width 15.5 % (11.5-14.5); Red Blood Cell (RBC) Count 2.84 mill/uL (4.20-5.40); White Blood Cell (WBC) Count 3.7 thou/uL (4.8-10.8)
[2022-10-07 05:16] LABS: ALT (SGPT) 39 U/L (8-55); AST (SGOT) 18 U/L (5-34); Alkaline Phosphatase 271 U/L (40-110); Anion Gap 11 mmol/L (10-20); BUN (Urea Nitrogen) 29 mg/dL (9.8-20.1); Bilirubin, Total 0.3 mg/dL (0.2-1.2); Calc. Creatinine Clearance 69 mL/min (70-130); Calcium 9.3 mg/dL (7.8-10.44); Carbon Dioxide 18 mmol/L (23-31); Chloride 114 mmol/L (98-107); Estimated GFR 95; Globulin 3.1 g/dL (2.4-3.5); Glucose 107 mg/dL (83-110); Potassium 3.1 mmol/L (3.5-5.1); Protein, Total 6.1 g/dL (5.8-8.1); Sodium 140 mmol/L (136-145)
[2022-10-07] MEDS: Transdermal Patch Removal TOP SCH (06:00)
[2022-10-07] MEDS: Acetaminophen/Codeine 30-300mg Tablet PO PRN ×2 (06:39→14:33)
[2022-10-07] MEDS: Nystatin 500,000 UNITS/5 ML UDCUP SSW SCH ×2 (08:46→13:53)
[2022-10-07] MEDS: DULoxetine 30 MG CAP PO SCH (08:47)
[2022-10-07] MEDS: Cholecalciferol 1,000 UNITS (25 MCG) TAB PO SCH (08:47)
[2022-10-07] MEDS: chlordiazePOXIDE HCl 25 MG CAP PO SCH ×3 (08:47→21:29)
[2022-10-07] MEDS: Saccharomyces boulardii 250 MG CAP PO SCH (08:48)
[2022-10-07] MEDS: Ascorbic Acid 500 mg Chewable Tablet PO SCH (08:48)
[2022-10-07] MEDS: Apixaban 5 MG TAB PO SCH ×2 (08:48→21:29)
[2022-10-07] MEDS: Sodium Chloride 1 GM TAB PO SCH ×2 (08:49→21:29)
[2022-10-07] MEDS: Megestrol Acetate 40 MG TAB PO SCH ×2 (08:49→21:29)
[2022-10-07] MEDS: Potassium Chloride 20 MEQ TAB PO SCH (08:49)
[2022-10-07] MEDS: Mometasone/Formoterol 200/5 60 PUFF INH SCH ×2 (08:53→21:29)
[2022-10-07] MEDS: Amino Acids 4.25 %/Dextrose 5% 2,000 ML IV SCH (09:28)
[2022-10-07] MEDS: Nicotine 21 MG PATCH TD SCH (09:29)
[2022-10-07] MEDS: Fioricet 325/50/40 mg Tablet PO PRN (10:17)
[2022-10-07] MEDS: Ondansetron ODT 4 MG TAB SL PRN ×2 (10:18→17:13)
[2022-10-07 14:44] LABS: Gamma GT (GGT) 494 U/L (9-36)
[2022-10-07] MEDS: Lidocaine 5% Patch TD SCH (16:08)
[2022-10-07] MEDS: Atorvastatin Calcium 40 MG TAB PO SCH (21:29)
[2022-10-08] MEDS: Fioricet 325/50/40 mg Tablet PO PRN ×2 (00:01→12:55)
[2022-10-08] MEDS: Acetaminophen/Codeine 30-300mg Tablet PO PRN ×3 (03:22→18:27)
[2022-10-08] MEDS: Polyethylene Glycol OPTH DROP 15 ML BOT EA EYE PRN (03:50)
[2022-10-08] MEDS: Transdermal Patch Removal TOP SCH (06:10)
[2022-10-08] MEDS: Acetaminophen 325 MG TAB PO PRN ×2 (06:28→22:14)
[2022-10-08] MEDS: chlordiazePOXIDE HCl 25 MG CAP PO SCH ×3 (08:26→22:14)
[2022-10-08] MEDS: Apixaban 5 MG TAB PO SCH ×2 (08:26→22:14)
[2022-10-08] MEDS: Saccharomyces boulardii 250 MG CAP PO SCH (08:26)
[2022-10-08] MEDS: Megestrol Acetate 40 MG TAB PO SCH ×2 (08:26→22:14)
[2022-10-08] MEDS: DULoxetine 30 MG CAP PO SCH (08:26)
[2022-10-08] MEDS: Potassium Chloride 20 MEQ TAB PO SCH (08:26)
[2022-10-08] MEDS: Ascorbic Acid 500 mg Chewable Tablet PO SCH (08:26)
[2022-10-08] MEDS: Cholecalciferol 1,000 UNITS (25 MCG) TAB PO SCH (08:26)
[2022-10-08] MEDS: Mometasone/Formoterol 200/5 60 PUFF INH SCH ×2 (08:27→22:16)
[2022-10-08] MEDS: Nicotine 21 MG PATCH TD SCH (08:27)
[2022-10-08] MEDS: Sodium Chloride 1 GM TAB PO SCH ×2 (08:27→22:15)
[2022-10-08] MEDS: Amino Acids 4.25 %/Dextrose 5% 2,000 ML IV SCH (09:42)
[2022-10-08] MEDS: Lidocaine 5% Patch TD SCH (16:06)
[2022-10-08] MEDS: Atorvastatin Calcium 40 MG TAB PO SCH (22:15)
[2022-10-09] MEDS: Fioricet 325/50/40 mg Tablet PO PRN (01:37)
[2022-10-09] MEDS: Transdermal Patch Removal TOP SCH (04:30)
[2022-10-09] MEDS: Acetaminophen/Codeine 30-300mg Tablet PO PRN ×3 (05:29→20:28)
[2022-10-09] MEDS: Potassium Chloride 20 MEQ TAB PO SCH (08:27)
[2022-10-09] MEDS: Sodium Chloride 1 GM TAB PO SCH ×2 (08:27→20:27)
[2022-10-09] MEDS: Megestrol Acetate 40 MG TAB PO SCH ×2 (08:27→20:27)
[2022-10-09] MEDS: Saccharomyces boulardii 250 MG CAP PO SCH (08:27)
[2022-10-09] MEDS: Apixaban 5 MG TAB PO SCH ×2 (08:27→20:27)
[2022-10-09] MEDS: chlordiazePOXIDE HCl 25 MG CAP PO SCH ×3 (08:28→20:27)
[2022-10-09] MEDS: DULoxetine 30 MG CAP PO SCH (08:28)
[2022-10-09] MEDS: Ascorbic Acid 500 mg Chewable Tablet PO SCH (08:28)
[2022-10-09] MEDS: Cholecalciferol 1,000 UNITS (25 MCG) TAB PO SCH (08:28)
[2022-10-09] MEDS: Mometasone/Formoterol 200/5 60 PUFF INH SCH ×2 (08:37→20:30)
[2022-10-09] MEDS: Nicotine 21 MG PATCH TD SCH (08:40)
[2022-10-09] MEDS: Amino Acids 4.25 %/Dextrose 5% 2,000 ML IV SCH (10:08)
[2022-10-09] MEDS: Acetaminophen 325 MG TAB PO PRN ×2 (10:09→10:10)
[2022-10-09] MEDS: Ondansetron ODT 4 MG TAB SL PRN (10:49)
[2022-10-09] MEDS: Lidocaine 5% Patch TD SCH (17:46)
[2022-10-09] MEDS: Polyethylene Glycol OPTH DROP 15 ML BOT EA EYE PRN (17:51)
[2022-10-09] MEDS: Atorvastatin Calcium 40 MG TAB PO SCH (20:28)
[2022-10-09] MEDS: Bisacodyl 5 MG TAB PO PRN (20:42)
[2022-10-09] MEDS: Melatonin 3 MG TAB PO PRN (20:42)
[2022-10-10] MEDS: Fioricet 325/50/40 mg Tablet PO PRN (00:26)
[2022-10-10] MEDS: Transdermal Patch Removal TOP SCH (05:04)
[2022-10-10] MEDS: chlordiazePOXIDE HCl 25 MG CAP PO SCH ×3 (09:04→20:33)
[2022-10-10] MEDS: Sodium Chloride 1 GM TAB PO SCH ×2 (09:06→20:30)
[2022-10-10] MEDS: Potassium Chloride 20 MEQ TAB PO SCH (09:06)
[2022-10-10] MEDS: DULoxetine 30 MG CAP PO SCH (09:06)
[2022-10-10] MEDS: Ascorbic Acid 500 mg Chewable Tablet PO SCH (09:06)
[2022-10-10] MEDS: Cholecalciferol 1,000 UNITS (25 MCG) TAB PO SCH (09:07)
[2022-10-10] MEDS: Saccharomyces boulardii 250 MG CAP PO SCH (09:07)
[2022-10-10] MEDS: Megestrol Acetate 40 MG TAB PO SCH ×2 (09:07→20:30)
[2022-10-10] MEDS: Polyethylene Glycol OPTH DROP 15 ML BOT EA EYE PRN (09:07)
[2022-10-10] MEDS: Apixaban 5 MG TAB PO SCH ×2 (09:07→20:30)
[2022-10-10] MEDS: Nicotine 21 MG PATCH TD SCH (09:12)
[2022-10-10] MEDS: Mometasone/Formoterol 200/5 60 PUFF INH SCH ×2 (09:13→20:25)
[2022-10-10] MEDS: Ondansetron ODT 4 MG TAB SL PRN (11:10)
[2022-10-10] MEDS: Amino Acids 4.25 %/Dextrose 5% 2,000 ML IV SCH (12:04)
[2022-10-10] MEDS: Acetaminophen/Codeine 30-300mg Tablet PO PRN ×2 (12:11→20:17)
[2022-10-10] MEDS: Lidocaine 5% Patch TD SCH (17:16)
[2022-10-10] MEDS: Atorvastatin Calcium 40 MG TAB PO SCH (20:30)
[2022-10-11] MEDS: Acetaminophen/Codeine 30-300mg Tablet PO PRN ×3 (05:42→20:51)
[2022-10-11] MEDS: Transdermal Patch Removal TOP SCH (05:55)
[2022-10-11] MEDS: Mometasone/Formoterol 200/5 60 PUFF INH SCH ×2 (08:27→20:53)
[2022-10-11] MEDS: chlordiazePOXIDE HCl 25 MG CAP PO SCH ×3 (08:28→20:52)
[2022-10-11] MEDS: Potassium Chloride 20 MEQ TAB PO SCH (08:28)
[2022-10-11] MEDS: DULoxetine 30 MG CAP PO SCH (08:31)
[2022-10-11] MEDS: Cholecalciferol 1,000 UNITS (25 MCG) TAB PO SCH (08:31)
[2022-10-11] MEDS: Saccharomyces boulardii 250 MG CAP PO SCH (08:31)
[2022-10-11] MEDS: Ascorbic Acid 500 mg Chewable Tablet PO SCH (08:31)
[2022-10-11] MEDS: Megestrol Acetate 40 MG TAB PO SCH ×2 (08:31→20:52)
[2022-10-11] MEDS: Sodium Chloride 1 GM TAB PO SCH ×2 (08:31→20:52)
[2022-10-11] MEDS: Apixaban 5 MG TAB PO SCH ×2 (08:32→20:52)
[2022-10-11] MEDS: Polyethylene Glycol OPTH DROP 15 ML BOT EA EYE PRN (08:32)
[2022-10-11] MEDS: Nicotine 21 MG PATCH TD SCH (08:36)
[2022-10-11] MEDS: Ondansetron ODT 4 MG TAB SL PRN (10:03)
[2022-10-11] MEDS: Amino Acids 4.25 %/Dextrose 5% 2,000 ML IV SCH (12:28)
[2022-10-11] MEDS: Fioricet 325/50/40 mg Tablet PO PRN (15:07)
[2022-10-11] MEDS: Lidocaine 5% Patch TD SCH (16:57)
[2022-10-11] MEDS: Atorvastatin Calcium 40 MG TAB PO SCH (20:52)
[2022-10-12] MEDS: Ondansetron ODT 4 MG TAB SL PRN ×3 (03:22→20:31)
[2022-10-12] MEDS: Acetaminophen 325 MG TAB PO PRN ×3 (03:26→20:31)
[2022-10-12] MEDS: Transdermal Patch Removal TOP SCH (05:17)
[2022-10-12] MEDS: DULoxetine 30 MG CAP PO SCH (08:52)
[2022-10-12] MEDS: Saccharomyces boulardii 250 MG CAP PO SCH (08:53)
[2022-10-12] MEDS: Potassium Chloride 20 MEQ TAB PO SCH (08:53)
[2022-10-12] MEDS: Sodium Chloride 1 GM TAB PO SCH ×2 (08:53→20:31)
[2022-10-12] MEDS: Megestrol Acetate 40 MG TAB PO SCH ×2 (08:54→20:31)
[2022-10-12] MEDS: Ascorbic Acid 500 mg Chewable Tablet PO SCH (08:55)
[2022-10-12] MEDS: Acetaminophen/Codeine 30-300mg Tablet PO PRN ×2 (08:55→17:03)
[2022-10-12] MEDS: chlordiazePOXIDE HCl 25 MG CAP PO SCH ×3 (08:57→20:31)
[2022-10-12] MEDS: Cholecalciferol 1,000 UNITS (25 MCG) TAB PO SCH (08:57)
[2022-10-12] MEDS: Apixaban 5 MG TAB PO SCH ×2 (08:58→20:31)
[2022-10-12] MEDS: Mometasone/Formoterol 200/5 60 PUFF INH SCH ×2 (09:04→20:32)
[2022-10-12] MEDS: Nicotine 21 MG PATCH TD SCH (09:27)
[2022-10-12] MEDS: Amino Acids 4.25 %/Dextrose 5% 2,000 ML IV SCH (11:48)
[2022-10-12] MEDS: Fioricet 325/50/40 mg Tablet PO PRN (14:27)
[2022-10-12] MEDS: Lidocaine 5% Patch TD SCH (16:29)
[2022-10-12] MEDS: Atorvastatin Calcium 40 MG TAB PO SCH (20:31)
[2022-10-13] MEDS: Acetaminophen/Codeine 30-300mg Tablet PO PRN ×3 (00:26→17:06)
[2022-10-13] MEDS: Acetaminophen 325 MG TAB PO PRN ×3 (04:41→21:12)
[2022-10-13] MEDS: Transdermal Patch Removal TOP SCH (04:58)
[2022-10-13] MEDS: Mometasone/Formoterol 200/5 60 PUFF INH SCH ×2 (09:04→21:28)
[2022-10-13] MEDS: Potassium Chloride 20 MEQ TAB PO SCH (09:08)
[2022-10-13] MEDS: chlordiazePOXIDE HCl 25 MG CAP PO SCH ×3 (09:10→21:13)
[2022-10-13] MEDS: DULoxetine 30 MG CAP PO SCH (09:11)
[2022-10-13] MEDS: Cholecalciferol 1,000 UNITS (25 MCG) TAB PO SCH (09:11)
[2022-10-13] MEDS: Sodium Chloride 1 GM TAB PO SCH ×2 (09:11→21:13)
[2022-10-13] MEDS: Megestrol Acetate 40 MG TAB PO SCH ×2 (09:13→21:14)
[2022-10-13] MEDS: Ascorbic Acid 500 mg Chewable Tablet PO SCH (09:14)
[2022-10-13] MEDS: Saccharomyces boulardii 250 MG CAP PO SCH (09:14)
[2022-10-13] MEDS: Apixaban 5 MG TAB PO SCH ×2 (09:18→21:13)
[2022-10-13] MEDS: Ondansetron ODT 4 MG TAB SL PRN (09:25)
[2022-10-13] MEDS: Fioricet 325/50/40 mg Tablet PO PRN ×2 (09:25→23:59)
[2022-10-13] MEDS: Nicotine 21 MG PATCH TD SCH (09:30)
[2022-10-13] MEDS: Amino Acids 4.25 %/Dextrose 5% 2,000 ML IV SCH (11:40)
[2022-10-13] MEDS: Lidocaine 5% Patch TD SCH (16:05)
[2022-10-13] MEDS: Melatonin 3 MG TAB PO PRN (21:13)
[2022-10-13] MEDS: Atorvastatin Calcium 40 MG TAB PO SCH (21:13)
[2022-10-13] MEDS: Zolpidem Tartrate 5 MG TAB PO PRN (23:59)
[2022-10-14] MEDS: Ondansetron ODT 4 MG TAB SL PRN ×2 (05:11→21:41)
[2022-10-14] MEDS: Acetaminophen/Codeine 30-300mg Tablet PO PRN ×3 (05:12→21:21)
[2022-10-14] MEDS: Transdermal Patch Removal TOP SCH (05:15)
[2022-10-14] MEDS: chlordiazePOXIDE HCl 25 MG CAP PO SCH ×2 (08:24→21:23)
[2022-10-14] MEDS: DULoxetine 30 MG CAP PO SCH (08:25)
[2022-10-14] MEDS: Apixaban 5 MG TAB PO SCH ×2 (08:28→21:23)
[2022-10-14] MEDS: Megestrol Acetate 40 MG TAB PO SCH ×2 (08:28→21:23)
[2022-10-14] MEDS: Sodium Chloride 1 GM TAB PO SCH ×2 (08:28→21:22)
[2022-10-14] MEDS: Saccharomyces boulardii 250 MG CAP PO SCH (08:28)
[2022-10-14] MEDS: Cholecalciferol 1,000 UNITS (25 MCG) TAB PO SCH (08:28)
[2022-10-14] MEDS: Ascorbic Acid 500 mg Chewable Tablet PO SCH (08:28)
[2022-10-14] MEDS: Mometasone/Formoterol 200/5 60 PUFF INH SCH ×2 (08:29→21:23)
[2022-10-14] MEDS: Potassium Chloride 20 MEQ TAB PO SCH (08:29)
[2022-10-14] MEDS: Acetaminophen 325 MG TAB PO PRN ×2 (08:50→16:45)
[2022-10-14] MEDS: Amino Acids 4.25 %/Dextrose 5% 2,000 ML IV SCH (16:44)
[2022-10-14] MEDS: Lidocaine 5% Patch TD SCH (16:46)
[2022-10-14] MEDS: Atorvastatin Calcium 40 MG TAB PO SCH (21:22)
[2022-10-14] MEDS: valACYclovir 500 MG TAB PO SCH (21:22)
[2022-10-15] MEDS: Acetaminophen 325 MG TAB PO PRN ×2 (01:57→18:28)
[2022-10-15] MEDS: Transdermal Patch Removal TOP SCH (05:08)
[2022-10-15] MEDS: Acetaminophen/Codeine 30-300mg Tablet PO PRN (05:08)
[2022-10-15] MEDS: valACYclovir 500 MG TAB PO SCH ×3 (09:33→21:33)
[2022-10-15] MEDS: Megestrol Acetate 40 MG TAB PO SCH ×2 (09:33→21:33)
[2022-10-15] MEDS: chlordiazePOXIDE HCl 25 MG CAP PO SCH ×2 (09:34→21:33)
[2022-10-15] MEDS: Cholecalciferol 1,000 UNITS (25 MCG) TAB PO SCH (09:34)
[2022-10-15] MEDS: DULoxetine 30 MG CAP PO SCH (09:34)
[2022-10-15] MEDS: Sodium Chloride 1 GM TAB PO SCH ×2 (09:35→21:33)
[2022-10-15] MEDS: Saccharomyces boulardii 250 MG CAP PO SCH (09:35)
[2022-10-15] MEDS: Potassium Chloride 20 MEQ TAB PO SCH (09:35)
[2022-10-15] MEDS: Ascorbic Acid 500 mg Chewable Tablet PO SCH (09:35)
[2022-10-15] MEDS: Apixaban 5 MG TAB PO SCH ×2 (09:35→21:33)
[2022-10-15] MEDS: Mometasone/Formoterol 200/5 60 PUFF INH SCH ×2 (09:36→21:34)
[2022-10-15] MEDS: Nicotine 21 MG PATCH TD SCH (10:00)
[2022-10-15] MEDS: HYDROcodone/Acetaminophen 5/325 mg Tablet PO PRN ×2 (13:19→21:31)
[2022-10-15] MEDS: Amino Acids 4.25 %/Dextrose 5% 2,000 ML IV SCH (14:01)
[2022-10-15] MEDS: Lidocaine 5% Patch TD SCH (16:12)
[2022-10-15] MEDS: Atorvastatin Calcium 40 MG TAB PO SCH (21:33)
[2022-10-16] MEDS: Fioricet 325/50/40 mg Tablet PO PRN (00:02)
[2022-10-16] MEDS: Acetaminophen/Codeine 30-300mg Tablet PO PRN ×2 (02:54→16:49)
[2022-10-16 05:32] LABS: Hemoglobin 11.9 g/dL (12.0-16.0); Platelet Count 150 10x3/uL (130-400)
[2022-10-16] MEDS: Transdermal Patch Removal TOP SCH (06:00)
[2022-10-16] MEDS: Mometasone/Formoterol 200/5 60 PUFF INH SCH ×2 (08:40→20:18)
[2022-10-16] MEDS: Polyethylene Glycol OPTH DROP 15 ML BOT EA EYE PRN ×2 (08:41→20:27)
[2022-10-16] MEDS: Nicotine 21 MG PATCH TD SCH (08:41)
[2022-10-16] MEDS: valACYclovir 500 MG TAB PO SCH ×3 (08:42→20:06)
[2022-10-16] MEDS: Apixaban 5 MG TAB PO SCH ×2 (08:43→20:06)
[2022-10-16] MEDS: Ascorbic Acid 500 mg Chewable Tablet PO SCH (08:43)
[2022-10-16] MEDS: Sodium Chloride 1 GM TAB PO SCH ×2 (08:43→20:06)
[2022-10-16] MEDS: Megestrol Acetate 40 MG TAB PO SCH ×2 (08:44→20:06)
[2022-10-16] MEDS: Potassium Chloride 20 MEQ TAB PO SCH (08:44)
[2022-10-16] MEDS: Cholecalciferol 1,000 UNITS (25 MCG) TAB PO SCH (08:44)
[2022-10-16] MEDS: Saccharomyces boulardii 250 MG CAP PO SCH (08:44)
[2022-10-16] MEDS: DULoxetine 30 MG CAP PO SCH (08:44)
[2022-10-16] MEDS: HYDROcodone/Acetaminophen 5/325 mg Tablet PO PRN ×2 (08:52→20:06)
[2022-10-16] MEDS: chlordiazePOXIDE HCl 25 MG CAP PO SCH ×2 (08:52→20:06)
[2022-10-16] MEDS: Ondansetron ODT 4 MG TAB SL PRN ×2 (08:53→20:18)
[2022-10-16] MEDS: Acetaminophen 325 MG TAB PO PRN (13:36)
[2022-10-16] MEDS: Bisacodyl 5 MG TAB PO PRN (16:52)
[2022-10-16] MEDS: Lidocaine 5% Patch TD SCH (16:52)
[2022-10-16] MEDS: Atorvastatin Calcium 40 MG TAB PO SCH (20:06)
[2022-10-17] MEDS: Acetaminophen/Codeine 30-300mg Tablet PO PRN ×2 (00:09→13:24)
[2022-10-17] MEDS: Transdermal Patch Removal TOP SCH (04:44)
[2022-10-17] MEDS: Acetaminophen 325 MG TAB PO PRN ×2 (05:17→18:48)
[2022-10-17] MEDS: Nicotine 21 MG PATCH TD SCH (08:54)
[2022-10-17] MEDS: Ascorbic Acid 500 mg Chewable Tablet PO SCH (08:55)
[2022-10-17] MEDS: Megestrol Acetate 40 MG TAB PO SCH ×2 (08:55→20:18)
[2022-10-17] MEDS: valACYclovir 500 MG TAB PO SCH ×3 (08:55→20:18)
[2022-10-17] MEDS: Apixaban 5 MG TAB PO SCH ×2 (08:56→20:18)
[2022-10-17] MEDS: DULoxetine 30 MG CAP PO SCH (08:56)
[2022-10-17] MEDS: Cholecalciferol 1,000 UNITS (25 MCG) TAB PO SCH (08:56)
[2022-10-17] MEDS: Potassium Chloride 20 MEQ TAB PO SCH (08:57)
[2022-10-17] MEDS: Sodium Chloride 1 GM TAB PO SCH ×2 (08:58→20:19)
[2022-10-17] MEDS: Mometasone/Formoterol 200/5 60 PUFF INH SCH ×2 (08:58→20:20)
[2022-10-17] MEDS: Saccharomyces boulardii 250 MG CAP PO SCH (08:58)
[2022-10-17] MEDS: Polyethylene Glycol OPTH DROP 15 ML BOT EA EYE PRN ×2 (09:00→20:17)
[2022-10-17] MEDS: HYDROcodone/Acetaminophen 5/325 mg Tablet PO PRN ×2 (09:07→20:19)
[2022-10-17] MEDS: chlordiazePOXIDE HCl 25 MG CAP PO SCH ×2 (09:07→20:18)
[2022-10-17] MEDS: Ondansetron ODT 4 MG TAB SL PRN ×2 (09:07→21:36)
[2022-10-17] MEDS: Senokot S 8.6-50 MG TAB PO PRN (09:07)
[2022-10-17] MEDS: Lidocaine 5% Patch TD SCH (17:25)
[2022-10-17] MEDS: Melatonin 3 MG TAB PO PRN (20:18)
[2022-10-17] MEDS: Atorvastatin Calcium 40 MG TAB PO SCH (20:18)
[2022-10-18] MEDS: Fioricet 325/50/40 mg Tablet PO PRN (01:22)
[2022-10-18] MEDS: Transdermal Patch Removal TOP SCH (05:07)
[2022-10-18] MEDS: Acetaminophen/Codeine 30-300mg Tablet PO PRN ×2 (05:57→20:36)
[2022-10-18] MEDS: Ondansetron ODT 4 MG TAB SL PRN ×3 (06:03→23:18)
[2022-10-18] MEDS: HYDROcodone/Acetaminophen 5/325 mg Tablet PO PRN (08:55)
[2022-10-18] MEDS: DULoxetine 30 MG CAP PO SCH (08:58)
[2022-10-18] MEDS: valACYclovir 500 MG TAB PO SCH ×3 (08:59→20:34)
[2022-10-18] MEDS: Saccharomyces boulardii 250 MG CAP PO SCH (09:00)
[2022-10-18] MEDS: Ascorbic Acid 500 mg Chewable Tablet PO SCH (09:00)
[2022-10-18] MEDS: Cholecalciferol 1,000 UNITS (25 MCG) TAB PO SCH (09:01)
[2022-10-18] MEDS: Potassium Chloride 20 MEQ TAB PO SCH (09:01)
[2022-10-18] MEDS: Apixaban 5 MG TAB PO SCH ×2 (09:02→20:34)
[2022-10-18] MEDS: Sodium Chloride 1 GM TAB PO SCH ×2 (09:02→20:34)
[2022-10-18] MEDS: Megestrol Acetate 40 MG TAB PO SCH ×2 (09:02→20:34)
[2022-10-18] MEDS: chlordiazePOXIDE HCl 25 MG CAP PO SCH ×2 (09:09→20:34)
[2022-10-18] MEDS: Nicotine 21 MG PATCH TD SCH (09:16)
[2022-10-18] MEDS: Mometasone/Formoterol 200/5 60 PUFF INH SCH ×2 (09:17→20:37)
[2022-10-18] MEDS: Senokot S 8.6-50 MG TAB PO PRN ×2 (14:29→20:37)
[2022-10-18] MEDS: Acetaminophen 325 MG TAB PO PRN (15:59)
[2022-10-18] MEDS: Lidocaine 5% Patch TD SCH (16:00)
[2022-10-18] MEDS: Bisacodyl 5 MG TAB PO PRN (20:34)
[2022-10-18] MEDS: Atorvastatin Calcium 40 MG TAB PO SCH (20:37)
[2022-10-18] MEDS: Melatonin 3 MG TAB PO PRN (20:37)
[2022-10-18] MEDS: Polyethylene Glycol OPTH DROP 15 ML BOT EA EYE PRN (20:38)
[2022-10-18] MEDS: Calcium Carbonate 500 MG ChewTAB PO PRN (23:18)
[2022-10-19] MEDS: HYDROcodone/Acetaminophen 5/325 mg Tablet PO PRN ×3 (03:36→23:14)
[2022-10-19] MEDS: Transdermal Patch Removal TOP SCH (05:30)
[2022-10-19] MEDS: Nicotine 21 MG PATCH TD SCH (08:59)
[2022-10-19] MEDS: Megestrol Acetate 40 MG TAB PO SCH ×2 (09:00→20:25)
[2022-10-19] MEDS: Ascorbic Acid 500 mg Chewable Tablet PO SCH (09:00)
[2022-10-19] MEDS: valACYclovir 500 MG TAB PO SCH ×3 (09:00→20:25)
[2022-10-19] MEDS: DULoxetine 30 MG CAP PO SCH (09:00)
[2022-10-19] MEDS: Apixaban 5 MG TAB PO SCH ×2 (09:01→20:26)
[2022-10-19] MEDS: Saccharomyces boulardii 250 MG CAP PO SCH (09:01)
[2022-10-19] MEDS: Cholecalciferol 1,000 UNITS (25 MCG) TAB PO SCH (09:01)
[2022-10-19] MEDS: Sodium Chloride 1 GM TAB PO SCH ×2 (09:02→20:25)
[2022-10-19] MEDS: Potassium Chloride 20 MEQ TAB PO SCH (09:02)
[2022-10-19] MEDS: Polyethylene Glycol OPTH DROP 15 ML BOT EA EYE PRN (09:03)
[2022-10-19] MEDS: Mometasone/Formoterol 200/5 60 PUFF INH SCH ×2 (09:06→20:24)
[2022-10-19] MEDS: Senokot S 8.6-50 MG TAB PO PRN (09:15)
[2022-10-19] MEDS: Ondansetron ODT 4 MG TAB SL PRN ×2 (09:16→23:19)
[2022-10-19] MEDS: Acetaminophen/Codeine 30-300mg Tablet PO PRN ×2 (09:16→17:21)
[2022-10-19] MEDS: chlordiazePOXIDE HCl 25 MG CAP PO SCH ×2 (09:18→20:25)
[2022-10-19] MEDS: Lidocaine 5% Patch TD SCH (17:22)
[2022-10-19] MEDS: Fioricet 325/50/40 mg Tablet PO PRN (20:25)
[2022-10-19] MEDS: Atorvastatin Calcium 40 MG TAB PO SCH (20:25)
[2022-10-20] MEDS: Acetaminophen/Codeine 30-300mg Tablet PO PRN ×2 (03:21→15:07)
[2022-10-20] MEDS: Transdermal Patch Removal TOP SCH (05:21)
[2022-10-20] MEDS: HYDROcodone/Acetaminophen 5/325 mg Tablet PO PRN ×2 (08:16→20:18)
[2022-10-20] MEDS: Polyethylene Glycol 3350 17 GM Packet PO PRN (08:17)
[2022-10-20] MEDS: Bisacodyl 5 MG TAB PO PRN (08:17)
[2022-10-20] MEDS: Polyethylene Glycol OPTH DROP 15 ML BOT EA EYE PRN (08:18)
[2022-10-20] MEDS: chlordiazePOXIDE HCl 25 MG CAP PO SCH ×2 (08:19→20:19)
[2022-10-20] MEDS: Nicotine 21 MG PATCH TD SCH (08:19)
[2022-10-20] MEDS: Ascorbic Acid 500 mg Chewable Tablet PO SCH (08:21)
[2022-10-20] MEDS: Apixaban 5 MG TAB PO SCH ×2 (08:21→20:19)
[2022-10-20] MEDS: Saccharomyces boulardii 250 MG CAP PO SCH (08:21)
[2022-10-20] MEDS: DULoxetine 30 MG CAP PO SCH (08:21)
[2022-10-20] MEDS: valACYclovir 500 MG TAB PO SCH ×3 (08:21→20:19)
[2022-10-20] MEDS: Sodium Chloride 1 GM TAB PO SCH ×2 (08:21→20:19)
[2022-10-20] MEDS: Megestrol Acetate 40 MG TAB PO SCH ×2 (08:22→20:19)
[2022-10-20] MEDS: Potassium Chloride 20 MEQ TAB PO SCH (08:22)
[2022-10-20] MEDS: Cholecalciferol 1,000 UNITS (25 MCG) TAB PO SCH (08:22)
[2022-10-20] MEDS: Mometasone/Formoterol 200/5 60 PUFF INH SCH ×2 (08:34→20:19)
[2022-10-20] MEDS: Fioricet 325/50/40 mg Tablet PO PRN (12:30)
[2022-10-20] MEDS: Lidocaine 5% Patch TD SCH (17:00)
[2022-10-20] MEDS: Atorvastatin Calcium 40 MG TAB PO SCH (20:19)
[2022-10-21] MEDS: Acetaminophen/Codeine 30-300mg Tablet PO PRN ×3 (00:35→22:31)
[2022-10-21] MEDS: Fioricet 325/50/40 mg Tablet PO PRN (04:12)
[2022-10-21] MEDS: Transdermal Patch Removal TOP SCH (05:00)
[2022-10-21] MEDS: HYDROcodone/Acetaminophen 5/325 mg Tablet PO PRN ×2 (09:37→17:37)
[2022-10-21] MEDS: Nicotine 21 MG PATCH TD SCH (09:38)
[2022-10-21] MEDS: Megestrol Acetate 40 MG TAB PO SCH ×2 (09:38→21:16)
[2022-10-21] MEDS: Saccharomyces boulardii 250 MG CAP PO SCH (09:38)
[2022-10-21] MEDS: DULoxetine 30 MG CAP PO SCH (09:38)
[2022-10-21] MEDS: Ascorbic Acid 500 mg Chewable Tablet PO SCH (09:39)
[2022-10-21] MEDS: chlordiazePOXIDE HCl 25 MG CAP PO SCH ×2 (09:39→21:16)
[2022-10-21] MEDS: Apixaban 5 MG TAB PO SCH ×2 (09:40→21:16)
[2022-10-21] MEDS: Sodium Chloride 1 GM TAB PO SCH ×2 (09:40→21:16)
[2022-10-21] MEDS: valACYclovir 500 MG TAB PO SCH ×3 (09:40→21:16)
[2022-10-21] MEDS: Cholecalciferol 1,000 UNITS (25 MCG) TAB PO SCH (09:40)
[2022-10-21] MEDS: Potassium Chloride 20 MEQ TAB PO SCH (09:40)
[2022-10-21] MEDS: Mometasone/Formoterol 200/5 60 PUFF INH SCH ×2 (09:41→21:16)
[2022-10-21] MEDS: Ondansetron ODT 4 MG TAB SL PRN ×2 (10:04→18:03)
[2022-10-21] MEDS: Lidocaine 5% Patch TD SCH (16:45)
[2022-10-21] MEDS: Atorvastatin Calcium 40 MG TAB PO SCH (21:16)
[2022-10-22] MEDS: Fioricet 325/50/40 mg Tablet PO PRN ×2 (00:49→22:01)
[2022-10-22] MEDS: HYDROcodone/Acetaminophen 5/325 mg Tablet PO PRN ×2 (05:30→20:10)
[2022-10-22] MEDS: Transdermal Patch Removal TOP SCH (05:32)
[2022-10-22] MEDS: Polyethylene Glycol 3350 17 GM Packet PO PRN (08:41)
[2022-10-22] MEDS: Acetaminophen/Codeine 30-300mg Tablet PO PRN (08:41)
[2022-10-22] MEDS: Mometasone/Formoterol 200/5 60 PUFF INH SCH ×2 (08:43→20:09)
[2022-10-22] MEDS: Potassium Chloride 20 MEQ TAB PO SCH (08:44)
[2022-10-22] MEDS: Apixaban 5 MG TAB PO SCH ×2 (08:44→20:10)
[2022-10-22] MEDS: Polyethylene Glycol OPTH DROP 15 ML BOT EA EYE PRN (08:44)
[2022-10-22] MEDS: Sodium Chloride 1 GM TAB PO SCH ×2 (08:45→20:10)
[2022-10-22] MEDS: DULoxetine 30 MG CAP PO SCH (08:45)
[2022-10-22] MEDS: Cholecalciferol 1,000 UNITS (25 MCG) TAB PO SCH (08:45)
[2022-10-22] MEDS: Ascorbic Acid 500 mg Chewable Tablet PO SCH (08:46)
[2022-10-22] MEDS: Megestrol Acetate 40 MG TAB PO SCH ×2 (08:46→20:10)
[2022-10-22] MEDS: Saccharomyces boulardii 250 MG CAP PO SCH (08:47)
[2022-10-22] MEDS: Nicotine 21 MG PATCH TD SCH (08:51)
[2022-10-22] MEDS: chlordiazePOXIDE HCl 25 MG CAP PO SCH (08:54)
[2022-10-22] MEDS: Calcium Carbonate 500 MG ChewTAB PO PRN (09:03)
[2022-10-22] MEDS: Ondansetron ODT 4 MG TAB SL PRN ×2 (12:29→22:47)
[2022-10-22] MEDS: Acetaminophen 325 MG TAB PO PRN (15:57)
[2022-10-22] MEDS: Lidocaine 5% Patch TD SCH (16:53)
[2022-10-22] MEDS: Atorvastatin Calcium 40 MG TAB PO SCH (20:10)
[2022-10-23] MEDS: Acetaminophen/Codeine 30-300mg Tablet PO PRN ×3 (02:53→23:43)
[2022-10-23 05:25] LABS: Hemoglobin 11.1 g/dL (12.0-16.0); Platelet Count 183 10x3/uL (130-400)
[2022-10-23] MEDS: Transdermal Patch Removal TOP SCH (05:37)
[2022-10-23] MEDS: Saccharomyces boulardii 250 MG CAP PO SCH (07:51)
[2022-10-23] MEDS: Acetaminophen 325 MG TAB PO PRN (07:52)
[2022-10-23] MEDS: Ondansetron ODT 4 MG TAB SL PRN ×3 (07:55→23:43)
[2022-10-23] MEDS: Megestrol Acetate 40 MG TAB PO SCH ×2 (07:55→20:51)
[2022-10-23] MEDS: DULoxetine 30 MG CAP PO SCH (07:56)
[2022-10-23] MEDS: Apixaban 5 MG TAB PO SCH ×2 (07:56→20:51)
[2022-10-23] MEDS: Potassium Chloride 20 MEQ TAB PO SCH (07:57)
[2022-10-23] MEDS: Nicotine 21 MG PATCH TD SCH (07:57)
[2022-10-23] MEDS: Sodium Chloride 1 GM TAB PO SCH ×2 (07:58→20:51)
[2022-10-23] MEDS: Ascorbic Acid 500 mg Chewable Tablet PO SCH (07:58)
[2022-10-23] MEDS: Cholecalciferol 1,000 UNITS (25 MCG) TAB PO SCH (07:58)
[2022-10-23] MEDS: Mometasone/Formoterol 200/5 60 PUFF INH SCH ×2 (07:58→21:00)
[2022-10-23] MEDS: Polyethylene Glycol OPTH DROP 15 ML BOT EA EYE PRN (07:59)
[2022-10-23] MEDS: HYDROcodone/Acetaminophen 5/325 mg Tablet PO PRN ×2 (10:39→20:51)
[2022-10-23] MEDS ORDERED: Hyoscyamine Sulfate SL 0.125 mg Tablet PO PRN (15:22)
[2022-10-23] MEDS: Lidocaine 5% Patch TD SCH (16:58)
[2022-10-23] MEDS: Atorvastatin Calcium 40 MG TAB PO SCH (20:50)
[2022-10-23] MEDS: Melatonin 3 MG TAB PO PRN (20:51)
[2022-10-23] MEDS: Zolpidem Tartrate 5 MG TAB PO PRN (20:51)
[2022-10-24] MEDS: Fioricet 325/50/40 mg Tablet PO PRN ×2 (02:18→13:51)
[2022-10-24] MEDS: HYDROcodone/Acetaminophen 5/325 mg Tablet PO PRN ×2 (05:13→16:33)
[2022-10-24] MEDS: Transdermal Patch Removal TOP SCH (05:16)
[2022-10-24] MEDS: Acetaminophen/Codeine 30-300mg Tablet PO PRN ×2 (09:52→20:44)
[2022-10-24] MEDS: Nicotine 21 MG PATCH TD SCH (09:52)
[2022-10-24] MEDS: DULoxetine 30 MG CAP PO SCH (09:53)
[2022-10-24] MEDS: Cholecalciferol 1,000 UNITS (25 MCG) TAB PO SCH (09:54)
[2022-10-24] MEDS: Potassium Chloride 20 MEQ TAB PO SCH (09:54)
[2022-10-24] MEDS: Saccharomyces boulardii 250 MG CAP PO SCH (09:54)
[2022-10-24] MEDS: Sodium Chloride 1 GM TAB PO SCH ×2 (09:54→20:45)
[2022-10-24] MEDS: Apixaban 5 MG TAB PO SCH ×2 (09:55→20:45)
[2022-10-24] MEDS: Ascorbic Acid 500 mg Chewable Tablet PO SCH (09:55)
[2022-10-24] MEDS: Megestrol Acetate 40 MG TAB PO SCH ×2 (09:55→20:45)
[2022-10-24] MEDS: Ondansetron ODT 4 MG TAB SL PRN ×3 (09:55→20:47)
[2022-10-24] MEDS: Mometasone/Formoterol 200/5 60 PUFF INH SCH ×2 (09:57→20:45)
[2022-10-24] MEDS: Lidocaine 5% Patch TD SCH (16:34)
[2022-10-24] MEDS: Atorvastatin Calcium 40 MG TAB PO SCH (20:45)
[2022-10-25] MEDS: HYDROcodone/Acetaminophen 5/325 mg Tablet PO PRN (00:32)
[2022-10-25] MEDS: Zolpidem Tartrate 5 MG TAB PO PRN (00:47)
[2022-10-25] MEDS: Acetaminophen 325 MG TAB PO PRN ×2 (03:48→12:50)
[2022-10-25] MEDS: Fioricet 325/50/40 mg Tablet PO PRN ×2 (03:49→15:27)
[2022-10-25] MEDS: Transdermal Patch Removal TOP SCH (04:07)
[2022-10-25] MEDS: Saccharomyces boulardii 250 MG CAP PO SCH (08:31)
[2022-10-25] MEDS: Nicotine 21 MG PATCH TD SCH (08:31)
[2022-10-25] MEDS: DULoxetine 30 MG CAP PO SCH (08:31)
[2022-10-25] MEDS: Sodium Chloride 1 GM TAB PO SCH ×2 (08:32→20:27)
[2022-10-25] MEDS: Ascorbic Acid 500 mg Chewable Tablet PO SCH (08:32)
[2022-10-25] MEDS: Cholecalciferol 1,000 UNITS (25 MCG) TAB PO SCH (08:32)
[2022-10-25] MEDS: Apixaban 5 MG TAB PO SCH ×2 (08:32→20:28)
[2022-10-25] MEDS: Potassium Chloride 20 MEQ TAB PO SCH (08:32)
[2022-10-25] MEDS: Megestrol Acetate 40 MG TAB PO SCH ×2 (08:32→20:29)
[2022-10-25] MEDS: Polyethylene Glycol 3350 17 GM Packet PO PRN (08:32)
[2022-10-25] MEDS: Mometasone/Formoterol 200/5 60 PUFF INH SCH ×2 (08:33→20:33)
[2022-10-25] MEDS: Acetaminophen/Codeine 30-300mg Tablet PO PRN ×2 (08:41→18:20)
[2022-10-25] MEDS: Polyethylene Glycol OPTH DROP 15 ML BOT EA EYE PRN (08:45)
[2022-10-25] MEDS: Ondansetron ODT 4 MG TAB SL PRN ×2 (08:52→18:25)
[2022-10-25] MEDS ORDERED: chlordiazePOXIDE HCl 25 MG CAP PO SCH (11:45)
[2022-10-25] MEDS: Lidocaine 5% Patch TD SCH (16:46)
[2022-10-25] MEDS: Atorvastatin Calcium 40 MG TAB PO SCH (20:26)
[2022-10-25] MEDS: Pregabalin 25 MG CAP PO SCH (20:27)
[2022-10-25] MEDS: chlordiazePOXIDE HCl 25 MG CAP PO SCH (20:28)
[2022-10-26] MEDS: Acetaminophen/Codeine 30-300mg Tablet PO PRN ×2 (02:42→14:20)
[2022-10-26] MEDS: Transdermal Patch Removal TOP SCH (04:58)
[2022-10-26] MEDS: Ondansetron ODT 4 MG TAB SL PRN ×2 (05:27→13:51)
[2022-10-26] MEDS: Nicotine 21 MG PATCH TD SCH (08:44)
[2022-10-26] MEDS: Saccharomyces boulardii 250 MG CAP PO SCH (08:44)
[2022-10-26] MEDS: Sodium Chloride 1 GM TAB PO SCH ×2 (08:47→20:09)
[2022-10-26] MEDS: DULoxetine 30 MG CAP PO SCH (08:47)
[2022-10-26] MEDS: Pregabalin 25 MG CAP PO SCH ×2 (08:48→20:09)
[2022-10-26] MEDS: Potassium Chloride 20 MEQ TAB PO SCH (08:48)
[2022-10-26] MEDS: Ascorbic Acid 500 mg Chewable Tablet PO SCH (08:48)
[2022-10-26] MEDS: Cholecalciferol 1,000 UNITS (25 MCG) TAB PO SCH (08:48)
[2022-10-26] MEDS: chlordiazePOXIDE HCl 25 MG CAP PO SCH ×2 (08:49→20:09)
[2022-10-26] MEDS: Megestrol Acetate 40 MG TAB PO SCH ×2 (08:49→20:08)
[2022-10-26] MEDS: Mometasone/Formoterol 200/5 60 PUFF INH SCH ×2 (08:49→20:10)
[2022-10-26] MEDS: Apixaban 5 MG TAB PO SCH ×2 (08:49→20:10)
[2022-10-26] MEDS: Fioricet 325/50/40 mg Tablet PO PRN ×2 (09:07→22:22)
[2022-10-26] MEDS: Acetaminophen 325 MG TAB PO PRN ×2 (09:07→18:11)
[2022-10-26] MEDS: Lidocaine 5% Patch TD SCH (17:16)
[2022-10-26] MEDS: Atorvastatin Calcium 40 MG TAB PO SCH (20:09)
[2022-10-27] MEDS: Acetaminophen/Codeine 30-300mg Tablet PO PRN ×2 (03:52→15:51)
[2022-10-27] MEDS: Transdermal Patch Removal TOP SCH (03:54)
[2022-10-27] MEDS: Ondansetron ODT 4 MG TAB SL PRN ×2 (04:01→13:15)
[2022-10-27] MEDS: Mometasone/Formoterol 200/5 60 PUFF INH SCH ×2 (09:03→20:30)
[2022-10-27] MEDS: Ascorbic Acid 500 mg Chewable Tablet PO SCH (09:05)
[2022-10-27] MEDS: Fioricet 325/50/40 mg Tablet PO PRN ×2 (09:05→20:33)
[2022-10-27] MEDS: DULoxetine 30 MG CAP PO SCH (09:06)
[2022-10-27] MEDS: chlordiazePOXIDE HCl 25 MG CAP PO SCH ×2 (09:06→20:29)
[2022-10-27] MEDS: Megestrol Acetate 40 MG TAB PO SCH ×2 (09:06→20:29)
[2022-10-27] MEDS: Potassium Chloride 20 MEQ TAB PO SCH (09:06)
[2022-10-27] MEDS: Sodium Chloride 1 GM TAB PO SCH ×2 (09:06→20:29)
[2022-10-27] MEDS: Saccharomyces boulardii 250 MG CAP PO SCH (09:06)
[2022-10-27] MEDS: Apixaban 5 MG TAB PO SCH ×2 (09:06→20:29)
[2022-10-27] MEDS: Cholecalciferol 1,000 UNITS (25 MCG) TAB PO SCH (09:07)
[2022-10-27] MEDS: Nicotine 21 MG PATCH TD SCH (09:07)
[2022-10-27] MEDS: Pregabalin 25 MG CAP PO SCH (09:09)
[2022-10-27] MEDS: Acetaminophen 325 MG TAB PO PRN (09:17)
[2022-10-27] MEDS: Bisacodyl 5 MG TAB PO PRN (09:18)
[2022-10-27 09:30] LABS: Bilirubin Negative (Negative); Blood, Urine Negative (Negative); CAUTI Indications for Culture Pelvic or flank pain; Clarity Slightly Cloudy (Clear); Glucose, Urine (Dipstick) Negative (Negative); Ketone, Urine Negative (Negative); Leukocyte Negative (Negative); Nitrite Negative (Negative); Protein, Urine (Dipstick) Negative (Neg-Trace); Specific Gravity, Urine 1.015 (1.005-1.030); pH, Urine 7.5 (5.0-9.0)
[2022-10-27 09:31] LABS: Urine Culture Reflex No No
[2022-10-27 09:36] LABS: Bacteria/HPF Rare-Few HPF (None Seen); RBC/HPF None Seen HPF (0-3); WBC/HPF None Seen HPF (0-3)
[2022-10-27] MEDS ORDERED: Pregabalin 25 MG CAP PO SCH (10:15)
[2022-10-27] MEDS ORDERED: Pregabalin 75 MG CAP PO SCH (10:45)
[2022-10-27] MEDS: Pregabalin 75 MG CAP PO SCH ×2 (10:48→20:28)
[2022-10-27] MEDS: Lidocaine 5% Patch TD SCH (16:32)
[2022-10-27] MEDS: Atorvastatin Calcium 40 MG TAB PO SCH (20:29)
[2022-10-27] MEDS: Zolpidem Tartrate 5 MG TAB PO PRN (20:33)
[2022-10-28] MEDS: Acetaminophen/Codeine 30-300mg Tablet PO PRN ×3 (00:12→18:32)
[2022-10-28] MEDS: Acetaminophen 325 MG TAB PO PRN ×2 (04:16→16:18)
[2022-10-28] MEDS: Transdermal Patch Removal TOP SCH (05:12)
[2022-10-28] MEDS: Potassium Chloride 20 MEQ TAB PO SCH (08:00)
[2022-10-28] MEDS: DULoxetine 30 MG CAP PO SCH (08:00)
[2022-10-28] MEDS: Megestrol Acetate 40 MG TAB PO SCH ×2 (08:00→20:49)
[2022-10-28] MEDS: Senokot S 8.6-50 MG TAB PO PRN (08:00)
[2022-10-28] MEDS ORDERED: Propranolol HCl 20 MG TAB PO SCH (08:00)
[2022-10-28] MEDS: chlordiazePOXIDE HCl 25 MG CAP PO SCH ×2 (08:01→20:50)
[2022-10-28] MEDS: Pregabalin 75 MG CAP PO SCH ×2 (08:01→20:49)
[2022-10-28] MEDS: Cholecalciferol 1,000 UNITS (25 MCG) TAB PO SCH (08:02)
[2022-10-28] MEDS: Nicotine 21 MG PATCH TD SCH (08:02)
[2022-10-28] MEDS: Mometasone/Formoterol 200/5 60 PUFF INH SCH ×2 (08:02→20:50)
[2022-10-28] MEDS: Sodium Chloride 1 GM TAB PO SCH ×2 (08:02→20:49)
[2022-10-28] MEDS: Ascorbic Acid 500 mg Chewable Tablet PO SCH (08:02)
[2022-10-28] MEDS: Saccharomyces boulardii 250 MG CAP PO SCH (08:02)
[2022-10-28] MEDS: Apixaban 5 MG TAB PO SCH ×2 (08:02→20:50)
[2022-10-28] MEDS: Fioricet 325/50/40 mg Tablet PO PRN ×2 (12:38→23:43)
[2022-10-28] MEDS: Propranolol HCl 20 MG TAB PO SCH ×2 (14:11→21:00)
[2022-10-28] MEDS: Lidocaine 5% Patch TD SCH (16:19)
[2022-10-28] MEDS: Ondansetron ODT 4 MG TAB SL PRN (16:19)
[2022-10-28] MEDS: Atorvastatin Calcium 40 MG TAB PO SCH (20:49)
[2022-10-28] MEDS: Zolpidem Tartrate 5 MG TAB PO PRN (23:43)
[2022-10-29] MEDS: Acetaminophen/Codeine 30-300mg Tablet PO PRN ×2 (04:09→10:10)
[2022-10-29] MEDS: Propranolol HCl 20 MG TAB PO SCH (05:16)
[2022-10-29] MEDS: Transdermal Patch Removal TOP SCH (05:16)
[2022-10-29] MEDS: Apixaban 5 MG TAB PO SCH (09:55)
[2022-10-29] MEDS: Saccharomyces boulardii 250 MG CAP PO SCH (09:55)
[2022-10-29] MEDS: chlordiazePOXIDE HCl 25 MG CAP PO SCH (09:57)
[2022-10-29] MEDS: DULoxetine 30 MG CAP PO SCH (09:57)
[2022-10-29] MEDS: Potassium Chloride 20 MEQ TAB PO SCH (09:57)
[2022-10-29] MEDS: Sodium Chloride 1 GM TAB PO SCH (09:57)
[2022-10-29] MEDS: Megestrol Acetate 40 MG TAB PO SCH (09:57)
[2022-10-29] MEDS: Pregabalin 75 MG CAP PO SCH (09:58)
[2022-10-29] MEDS: Ascorbic Acid 500 mg Chewable Tablet PO SCH (09:58)
[2022-10-29] MEDS: Cholecalciferol 1,000 UNITS (25 MCG) TAB PO SCH (09:59)
[2022-10-29] MEDS: Nicotine 21 MG PATCH TD SCH (09:59)
[2022-10-29] MEDS: Mometasone/Formoterol 200/5 60 PUFF INH SCH (09:59)
[2022-10-29 10:01] VITALS: BP 111/76
[2022-10-29 11:16] VITALS: TEMP 98.2
== END 2022-10-29 10:58 | disposition home or self-care (01) | DRG 948 ==
LOC: BURMED 21:23
PROVIDERS: ADMIT Family Medicine; ATTEND Family Medicine
PROC: 3E0336Z Introduction of Nutritional Substance into Peripheral Vein, Percutaneous Approach (ICD-10-PCS; principal; 2022-09-29)
DX: R53.81 Other malaise (principal); R53.1 Weakness; I48.0 Paroxysmal atrial fibrillation; J44.9 Chronic obstructive pulmonary disease, unspecified; E78.5 Hyperlipidemia, unspecified; M19.90 Unspecified osteoarthritis, unspecified site; I10 Essential (primary) hypertension; E03.9 Hypothyroidism, unspecified; I25.10 Atherosclerotic heart disease of native coronary artery without angina pectoris; F17.210 Nicotine dependence, cigarettes, uncomplicated; B02.9 Zoster without complications; F41.9 Anxiety disorder, unspecified; F32.A Depression, unspecified; Z79.01 Long term (current) use of anticoagulants; Z79.899 Other long term (current) drug therapy; Z88.8 Allergy status to other drugs, medicaments and biological substances; Z95.5 Presence of coronary angioplasty implant and graft; Z88.5 Allergy status to narcotic agent; Z90.49 Acquired absence of other specified parts of digestive tract; Z90.710 Acquired absence of both cervix and uterus
CPT/HCPCS: 36415; 36416; 74018; 80053; 81001; 82565; 82977; 85014; 85018; 85025; 85049; 87811; 94664; J2405; Q0162; S0179; U0003; U0005

== ENCOUNTER 2022-11-07 21:16 | Emergency (ER) | payer MEDICARE | END 2022-11-07 22:43 | disposition home or self-care (01) | LOC: BURERS 21:16 | DX: M54.50 Low back pain, unspecified (principal); S80.02XA Contusion of left knee, initial encounter; S80.01XA Contusion of right knee, initial encounter; S41.112A Laceration without foreign body of left upper arm, initial encounter; J44.9 Chronic obstructive pulmonary disease, unspecified; E03.9 Hypothyroidism, unspecified; E78.5 Hyperlipidemia, unspecified; I10 Essential (primary) hypertension; F17.210 Nicotine dependence, cigarettes, uncomplicated; V00.181A Fall from other rolling-type pedestrian conveyance, initial encounter; Z79.899 Other long term (current) drug therapy | CPT/HCPCS: 12002; 72100 ==

== ENCOUNTER 2022-12-17 17:22 | Emergency (ER) | payer MEDICARE ==
[~2022-12-17 17:22] MED LIST: Iopamidol 370 76% 100 ML VIAL ONE
[2022-12-17 18:08] LABS: #Monocytes 0.4 thou/uL (0.11-0.59); #Neutrophils 2.4 thou/uL (1.40-6.50); %Basophils 0.8 % (0.0-1.0); %Eosinophils 0.7 % (0.0-10.0); %Monocytes 8.1 % (0.0-10.0); %Neutrophils 49.4 % (42.0-75.0); Hemoglobin 14.8 g/dL (12.0-16.0); Mean Corpuscular Hemoglobin 33.2 pg (27.0-31.0); Platelet Count 177 10x3/uL (130-400); RBC Distribution Width 13.6 % (11.5-14.5); Red Blood Cell (RBC) Count 4.45 mill/uL (4.20-5.40); White Blood Cell (WBC) Count 4.9 10x3/uL (4.8-10.8)
[2022-12-17 18:08] LABS: Clarity Clear (Clear)
[2022-12-17 18:09] LABS: Bilirubin Negative (Negative); Blood, Urine Negative (Negative); Glucose, Urine (Dipstick) Negative (Negative); Ketone, Urine Negative (Negative); Leukocyte Trace (Negative); Nitrite Negative (Negative); Protein, Urine (Dipstick) Negative (Neg-Trace); Urobilinogen 0.2 mg/dL (Less than 2)
[2022-12-17 18:11] LABS: Bacteria/HPF 1+ HPF (None Seen); RBC/HPF None Seen HPF (0-3); Squamous Epithelial 0-3 HPF (0-3)
[2022-12-17 18:12] LABS: Mucous/LPF 3+ LPF (<2+)
[2022-12-17 18:24] LABS: ALT (SGPT) 20 U/L (8-55); AST (SGOT) 21 U/L (5-34); Albumin 3.7 g/dL (3.4-4.8); Alkaline Phosphatase 201 U/L (40-110); Anion Gap 11 mmol/L (10-20); BUN (Urea Nitrogen) 16 mg/dL (9.8-20.1); Bilirubin, Total 0.3 mg/dL (0.2-1.2); Calc. Creatinine Clearance 0 mL/min (70-130); Carbon Dioxide 19 mmol/L (23-31); Chloride 108 mmol/L (98-107); Estimated GFR 77; Globulin 3.4 g/dL (2.4-3.5); Glucose 95 mg/dL (83-110); Lipase 79 U/L (8-78); Potassium 4.6 mmol/L (3.5-5.1); Protein, Total 7.1 g/dL (5.8-8.1); Sodium 133 mmol/L (136-145)
[2022-12-17] MEDS ORDERED: Cephalexin 250 MG CAP ONE (19:22)
== END 2022-12-17 20:38 | disposition home or self-care (01) ==
LOC: BURERS 17:22
DX: N39.0 Urinary tract infection, site not specified (principal); E03.9 Hypothyroidism, unspecified; I10 Essential (primary) hypertension; G43.909 Migraine, unspecified, not intractable, without status migrainosus; J44.9 Chronic obstructive pulmonary disease, unspecified; F17.210 Nicotine dependence, cigarettes, uncomplicated; Z79.899 Other long term (current) drug therapy
CPT/HCPCS: 74177; 80053; 81003; 81015; 83605; 83690; 85025; 87086; Q9967

== ENCOUNTER 2023-03-01 23:21 | Emergency (ER) | payer MEDICARE | END 2023-03-02 00:27 | disposition home or self-care (01) | LOC: BURERS 23:21 | DX: S00.01XA Abrasion of scalp, initial encounter (principal); E03.9 Hypothyroidism, unspecified; E78.5 Hyperlipidemia, unspecified; I10 Essential (primary) hypertension; J44.9 Chronic obstructive pulmonary disease, unspecified; F17.210 Nicotine dependence, cigarettes, uncomplicated; W18.30XA Fall on same level, unspecified, initial encounter; Y92.091 Bathroom in other non-institutional residence as the place of occurrence of the external cause; Z79.899 Other long term (current) drug therapy; Z79.01 Long term (current) use of anticoagulants | CPT/HCPCS: 70450; 71045 ==

== ENCOUNTER 2023-03-19 14:01 | Emergency (ER) | payer MEDICARE ==
[2023-03-19 15:32] LABS: #Basophils 0.1 thou/uL (0.0-0.2); #Lymphocytes 1.8 thou/uL (1.20-3.40); #Monocytes 0.6 thou/uL (0.11-0.59); #Neutrophils 3.4 thou/uL (1.40-6.50); %Basophils 0.9 % (0.0-1.0); %Eosinophils 0.2 % (0.0-10.0); %Lymphocytes 30.4 % (21.0-51.0); %Monocytes 9.6 % (0.0-10.0); Hemoglobin 13.3 g/dL (12.0-16.0); Mean Corpuscular HGB CONC 32.8 g/dL (32.0-36.0); Mean Corpuscular Hemoglobin 33.4 pg (27.0-31.0); Mean Platelet Volume 10.5 fL (7.4-10.4); Platelet Count 174 10x3/uL (130-400); RBC Distribution Width 13.7 % (11.5-14.5); Red Blood Cell (RBC) Count 3.98 mill/uL (4.20-5.40); White Blood Cell (WBC) Count 5.8 10x3/uL (4.8-10.8)
[2023-03-19 15:34] LABS: Platelet Morphology Comment Appears Adequate
[2023-03-19 15:35] LABS: ALT (SGPT) 37 U/L (8-55); AST (SGOT) 31 U/L (5-34); Albumin 4.2 g/dL (3.4-4.8); Alkaline Phosphatase 236 U/L (40-110); Anion Gap 11 mmol/L (10-20); BUN (Urea Nitrogen) 10 mg/dL (9.8-20.1); Bilirubin, Total 0.6 mg/dL (0.2-1.2); Calc. Creatinine Clearance 0 mL/min (70-130); Calcium 9.7 mg/dL (7.8-10.44); Carbon Dioxide 22 mmol/L (23-31); Chloride 109 mmol/L (98-107); Estimated GFR 91; Globulin 2.9 g/dL (2.4-3.5); Glucose 97 mg/dL (83-110); Lipase 30 U/L (8-78); MDiff Complete? YES; Protein, Total 7.1 g/dL (5.8-8.1); Sodium 138 mmol/L (136-145)
== END 2023-03-19 16:10 | disposition home or self-care (01) ==
LOC: BURERS 14:01
DX: R06.02 Shortness of breath (principal); R07.89 Other chest pain; T42.4X5A Adverse effect of benzodiazepines, initial encounter; E03.9 Hypothyroidism, unspecified; I10 Essential (primary) hypertension; J44.9 Chronic obstructive pulmonary disease, unspecified; F17.210 Nicotine dependence, cigarettes, uncomplicated
CPT/HCPCS: 36415; 71045; 80053; 83690; 83880; 84484; 85025; 93005

== ENCOUNTER 2023-03-21 12:49 | Emergency (ER) | payer MEDICARE ==
[2023-03-21] MEDS ORDERED: Mag-Al Plus 1200 MG/1200 MG/120 MG/30 ML UDCUP ONE (13:14)
[2023-03-21] MEDS ORDERED: Lidocaine Viscous Sol 2% 15 ml UD Cup ONE (13:14)
[2023-03-21] MEDS ORDERED: Lorazepam 2 MG/ML VIAL ONE (13:14)
[2023-03-21 13:25] LABS: #Lymphocytes 1.4 thou/uL (1.20-3.40); #Monocytes 0.5 thou/uL (0.11-0.59); #Neutrophils 3.7 thou/uL (1.40-6.50); %Basophils 0.4 % (0.0-1.0); %Eosinophils 0.2 % (0.0-10.0); %Lymphocytes 24.3 % (21.0-51.0); %Monocytes 8.4 % (0.0-10.0); %Neutrophils 66.7 % (42.0-75.0); Hemoglobin 13.4 g/dL (12.0-16.0); Mean Corpuscular HGB CONC 33.1 g/dL (32.0-36.0); Mean Corpuscular Hemoglobin 33.2 pg (27.0-31.0); Mean Platelet Volume 9.6 fL (7.4-10.4); Platelet Count 188 10x3/uL (130-400); RBC Distribution Width 13.5 % (11.5-14.5); Red Blood Cell (RBC) Count 4.04 mill/uL (4.20-5.40); White Blood Cell (WBC) Count 5.6 10x3/uL (4.8-10.8)
[2023-03-21 13:26] LABS: Platelet Morphology Comment Appears Adequate
[2023-03-21 13:27] LABS: MDiff Complete? YES
[2023-03-21] MEDS ORDERED: Ibuprofen 800 MG TAB ONE (13:33)
[2023-03-21 13:37] LABS: ALT (SGPT) 32 U/L (8-55); AST (SGOT) 26 U/L (5-34); Albumin 4.2 g/dL (3.4-4.8); Alkaline Phosphatase 230 U/L (40-110); Anion Gap 10 mmol/L (10-20); BUN (Urea Nitrogen) 14 mg/dL (9.8-20.1); Bilirubin, Total 0.5 mg/dL (0.2-1.2); Calc. Creatinine Clearance 0 mL/min (70-130); Calcium 9.3 mg/dL (7.8-10.44); Carbon Dioxide 19 mmol/L (23-31); Chloride 111 mmol/L (98-107); Estimated GFR 73; Glucose 114 mg/dL (83-110); Potassium 4.2 mmol/L (3.5-5.1); Protein, Total 7.2 g/dL (5.8-8.1); Sodium 136 mmol/L (136-145)
== END 2023-03-21 15:00 | disposition home or self-care (01) ==
LOC: BURERS 12:49
DX: F41.9 Anxiety disorder, unspecified (principal); I48.91 Unspecified atrial fibrillation; E03.9 Hypothyroidism, unspecified; E78.00 Pure hypercholesterolemia, unspecified; I10 Essential (primary) hypertension; M19.90 Unspecified osteoarthritis, unspecified site; J44.9 Chronic obstructive pulmonary disease, unspecified; F17.210 Nicotine dependence, cigarettes, uncomplicated; Z79.01 Long term (current) use of anticoagulants; Z79.899 Other long term (current) drug therapy
CPT/HCPCS: 71045; 80053; 83880; 84484; 85025; 93005; 94760; 96374; J2060

== ENCOUNTER 2023-04-18 18:53 | Emergency (ER) | payer MEDICARE ==
[2023-04-18 19:31] LABS: #Basophils 0.1 thou/uL (0.0-0.2); #Monocytes 0.7 thou/uL (0.11-0.59); #Neutrophils 3.9 thou/uL (1.40-6.50); %Basophils 0.9 % (0.0-1.0); %Eosinophils 0.6 % (0.0-10.0); %Lymphocytes 29.3 % (21.0-51.0); %Monocytes 10.7 % (0.0-10.0); %Neutrophils 58.5 % (42.0-75.0); Hemoglobin 11.6 g/dL (12.0-16.0); Mean Corpuscular HGB CONC 32.1 g/dL (32.0-36.0); Mean Corpuscular Hemoglobin 32.7 pg (27.0-31.0); Mean Platelet Volume 9.6 fL (7.4-10.4); Platelet Count 174 10x3/uL (130-400); RBC Distribution Width 14.9 % (11.5-14.5); Red Blood Cell (RBC) Count 3.55 mill/uL (4.20-5.40); White Blood Cell (WBC) Count 6.7 10x3/uL (4.8-10.8)
[2023-04-18] MEDS ORDERED: Lorazepam 2 MG/ML VIAL ONE (19:31)
[2023-04-18 19:45] LABS: ALT (SGPT) 71 U/L (8-55); AST (SGOT) 53 U/L (5-34); Alkaline Phosphatase 204 U/L (40-110); Anion Gap 12 mmol/L (10-20); BUN (Urea Nitrogen) 21 mg/dL (9.8-20.1); Bilirubin, Total 0.2 mg/dL (0.2-1.2); Calc. Creatinine Clearance 0 mL/min (70-130); Carbon Dioxide 19 mmol/L (23-31); Chloride 100 mmol/L (98-107); Estimated GFR 82; Globulin 2.4 g/dL (2.4-3.5); Glucose 79 mg/dL (83-110); Lipase 63 U/L (8-78); Potassium 4.4 mmol/L (3.5-5.1); Protein, Total 6.4 g/dL (5.8-8.1); Sodium 127 mmol/L (136-145)
== END 2023-04-18 23:03 | disposition short-term general hospital (02) ==
LOC: BURERS 18:53
DX: R07.89 Other chest pain (principal); E87.1 Hypo-osmolality and hyponatremia; F11.20 Opioid dependence, uncomplicated; I10 Essential (primary) hypertension; E03.9 Hypothyroidism, unspecified; E78.00 Pure hypercholesterolemia, unspecified; M19.90 Unspecified osteoarthritis, unspecified site; J44.9 Chronic obstructive pulmonary disease, unspecified; F17.210 Nicotine dependence, cigarettes, uncomplicated; Z95.5 Presence of coronary angioplasty implant and graft; Z79.01 Long term (current) use of anticoagulants; Z79.899 Other long term (current) drug therapy
CPT/HCPCS: 71045; 80053; 83690; 84484; 85025; 93005; 94640; 94760; 96374; J2060

== ENCOUNTER 2023-10-23 05:05 | Emergency (ER) | payer OTHER, MEDICARE ==
[2023-10-23] MEDS ORDERED: Ibuprofen 200 MG TAB ONE (05:31)
[2023-10-23] MEDS ORDERED: Acetaminophen 325 MG TAB ONE (08:18)
== END 2023-10-23 08:49 | disposition home or self-care (01) ==
LOC: BURERS 05:05
DX: S80.12XA Contusion of left lower leg, initial encounter (principal); S51.011A Laceration without foreign body of right elbow, initial encounter; M25.511 Pain in right shoulder; I11.0 Hypertensive heart disease with heart failure; I50.9 Heart failure, unspecified; J44.9 Chronic obstructive pulmonary disease, unspecified; F17.210 Nicotine dependence, cigarettes, uncomplicated; W18.30XA Fall on same level, unspecified, initial encounter

== ENCOUNTER 2024-07-24 15:01 | Emergency (ER) | payer MEDICARE, OTHER ==
[2024-07-24 15:46] LABS: #Lymphocytes 1.5 thou/uL (1.20-3.40); #Monocytes 0.6 thou/uL (0.11-0.59); #Neutrophils 2.5 thou/uL (1.40-6.50); %Basophils 0.7 % (0.0-1.0); %Eosinophils 0.6 % (0.0-10.0); %Lymphocytes 32.5 % (21.0-51.0); %Monocytes 13.6 % (0.0-10.0); %Neutrophils 52.6 % (42.0-75.0); Hematocrit 36.4 % (36.0-47.0); Hemoglobin 11.9 g/dL (12.0-16.0); Mean Corpuscular HGB CONC 32.7 g/dL (32.0-36.0); Mean Corpuscular Hemoglobin 30.7 pg (27.0-31.0); Mean Corpuscular Volume 93.8 fl (78.0-98.0); Mean Platelet Volume 10.8 fL (7.4-10.4); Platelet Count 174 10x3/uL (130-400); RBC Distribution Width 14.7 % (11.5-14.5); Red Blood Cell (RBC) Count 3.89 mill/uL (4.20-5.40); White Blood Cell (WBC) Count 4.7 10x3/uL (4.8-10.8)
[2024-07-24 16:02] LABS: ALT (SGPT) 18 U/L (8-55); AST (SGOT) 19 U/L (5-34); Albumin 3.7 g/dL (3.4-4.8); Alkaline Phosphatase 108 U/L (40-110); Anion Gap 15 mmol/L (10-20); BUN (Urea Nitrogen) 20 mg/dL (9.8-20.1); Bilirubin, Total 0.3 mg/dL (0.2-1.2); Calc. Creatinine Clearance 0 mL/min (70-130); Calcium 9.3 mg/dL (7.8-10.44); Carbon Dioxide 21 mmol/L (23-31); Chloride 109 mmol/L (98-107); Estimated GFR 52; Globulin 2.9 g/dL (2.4-3.5); Glucose 97 mg/dL (83-110); Lipase 23 U/L (8-78); Potassium 4.9 mmol/L (3.5-5.1); Protein, Total 6.6 g/dL (5.8-8.1); Sodium 140 mmol/L (136-145)
[2024-07-24] MEDS ORDERED: Acetaminophen/Codeine 30-300mg Tablet ONE (16:26)
== END 2024-07-24 17:12 | disposition home or self-care (01) ==
LOC: BURERS 15:01
DX: G89.29 Other chronic pain (principal); M79.605 Pain in left leg; M54.9 Dorsalgia, unspecified; I48.91 Unspecified atrial fibrillation; I11.0 Hypertensive heart disease with heart failure; I50.9 Heart failure, unspecified; J44.9 Chronic obstructive pulmonary disease, unspecified; E03.9 Hypothyroidism, unspecified; E78.5 Hyperlipidemia, unspecified; F17.210 Nicotine dependence, cigarettes, uncomplicated; Z79.01 Long term (current) use of anticoagulants; Z79.899 Other long term (current) drug therapy
CPT/HCPCS: 36415; 80053; 83690; 85025

== ENCOUNTER 2024-08-10 17:32 | Emergency (ER) | payer MEDICARE ==
[2024-08-10] MEDS ORDERED: Dexamethasone 10 MG/ML VIAL ONE (17:46)
[2024-08-10] MEDS ORDERED: Ipratropium/Albuterol 3 ML NEB ONE (17:46)
[2024-08-10] MEDS ORDERED: Acetaminophen/Codeine 30-300mg Tablet ONE (17:47)
[2024-08-10 18:11] LABS: #Basophils 0.1 thou/uL (0.0-0.2); #Monocytes 0.3 thou/uL (0.11-0.59); #Neutrophils 2.9 thou/uL (1.40-6.50); %Basophils 1.5 % (0.0-1.0); %Eosinophils 0.1 % (0.0-10.0); %Lymphocytes 7.2 % (21.0-51.0); %Monocytes 8.1 % (0.0-10.0); %Neutrophils 83.1 % (42.0-75.0); Hematocrit 36.1 % (36.0-47.0); Hemoglobin 12.5 g/dL (12.0-16.0); Mean Corpuscular HGB CONC 34.6 g/dL (32.0-36.0); Mean Corpuscular Volume 89.6 fl (78.0-98.0); Mean Platelet Volume 9.1 fL (7.4-10.4); Platelet Count 98 10x3/uL (130-400); RBC Distribution Width 14.7 % (11.5-14.5); Red Blood Cell (RBC) Count 4.03 mill/uL (4.20-5.40); White Blood Cell (WBC) Count 3.5 10x3/uL (4.8-10.8)
[2024-08-10 18:25] LABS: ALT (SGPT) 22 U/L (8-55); AST (SGOT) 42 U/L (5-34); Albumin 3.7 g/dL (3.4-4.8); Alkaline Phosphatase 145 U/L (40-110); Anion Gap 17 mmol/L (10-20); BUN (Urea Nitrogen) 11 mg/dL (9.8-20.1); Bilirubin, Total 0.5 mg/dL (0.2-1.2); Calc. Creatinine Clearance 0 mL/min (70-130); Calcium 9.3 mg/dL (7.8-10.44); Carbon Dioxide 18 mmol/L (23-31); Chloride 112 mmol/L (98-107); Estimated GFR 80; Globulin 3.3 g/dL (2.4-3.5); Glucose 103 mg/dL (83-110); Potassium 3.6 mmol/L (3.5-5.1); Sodium 143 mmol/L (136-145)
[2024-08-10 18:29] LABS: Troponin I 0.014 ng/mL (< 0.028)
[2024-08-10 18:34] LABS: MDiff Complete? YES; Platelet Adequacy Comment Platelets Decreased
[2024-08-10] MEDS ORDERED: dilTIAZem 25 MG/5 ML VIAL ONE (19:05)
== END 2024-08-10 20:50 | disposition short-term general hospital (02) ==
LOC: BURERS 17:32
DX: U07.1 COVID-19 (principal); J12.82 Pneumonia due to coronavirus disease 2019; R09.02 Hypoxemia; I48.91 Unspecified atrial fibrillation; I11.0 Hypertensive heart disease with heart failure; I50.9 Heart failure, unspecified; J44.9 Chronic obstructive pulmonary disease, unspecified; F17.210 Nicotine dependence, cigarettes, uncomplicated; E03.9 Hypothyroidism, unspecified; E78.5 Hyperlipidemia, unspecified; Z79.01 Long term (current) use of anticoagulants; Z79.899 Other long term (current) drug therapy
CPT/HCPCS: 36415; 71045; 80053; 83880; 84484; 85025; 93005; 96374; 96375; 96376; J1100; J7620